=== PATIENT | male | born 1970 | race Caucasian/White ===

== ENCOUNTER 2021-01-23 22:23 | Inpatient (IN) | payer OTHER ==
[2021-01-23 22:32] VITALS: BMI 16.5
[2021-01-24 00:07] LABS: EOS % 2.9 % (0-4.5); HEMATOCRIT 21.2 % (35.4-49); MCH 28.4 pg (25.7-33.7); MCHC 33.1 g/dl (32.0-35.9); MEAN CELL VOLUME 85.7 fl (80-96); MEAN PLT VOLUME 7.7 fl (7.5-11.1); MONO % 14.7 % (3.8-10.2); NEUT % 60.4 % (42.8-82.8); PLATELET COUNT 209 K/MM3 (134-434); RBC 2.47 M/mm3 (4.00-5.60); RDW 15.4 % (11.9-15.9); RETICULOCYTES 1.74 % (0.5-1.5); WHITE BLOOD COUNT 13.8 K/mm3 (4.0-10.0)
[2021-01-24 00:17] LABS: INR 0.97 (0.83-1.09); PROTHROMBIN TIME (PATIENT) 11.8 SEC (9.7-13.0)
[2021-01-24 00:19] LABS: ACTIVATED PTT 27.6 SECONDS (25.2-36.5)
[2021-01-24 00:28] LABS: CHLORIDE 107 mmol/L (98-107); SODIUM 142 mmol/L (136-145)
[2021-01-24 00:31] LABS: CALCIUM 9.6 mg/dL (8.5-10.1); CO2 26 mmol/L (21-32); GLUCOSE,RANDOM 108 mg/dL (74-106); MAGNESIUM 2.3 mg/dL (1.8-2.4)
[2021-01-24 00:34] LABS: CREATININE 3.4 mg/dL (0.55-1.3); SGOT/AST 44 U/L (15-37); SGPT/ALT 40 U/L (13-61)
[2021-01-24 00:35] LABS: LDH 207 U/L (87-246)
[2021-01-24 00:36] LABS: TOT PROT 6.1 g/dl (6.4-8.2)
[2021-01-24 00:37] LABS: ALK PHOS 344 U/L (45-117)
[2021-01-24 00:45] LABS: ANION GAP 9 MMOL/L (8-16)
[2021-01-24 00:47] LABS: IRON SERUM 20 ug/dL (50-175); TOTAL IRON BINDING CAPACITY 154 ug/dL (250-450)
[2021-01-24] MEDS ORDERED: POTASSIUM PHOSPHATE 30 MM in SODIUM CHLORIDE 500 ML IVPB ONE (00:54)
[2021-01-24 01:10] LABS: ANISOCYTOSIS 1+; MACROCYTOSIS 0; PLATELET ESTIMATE NORMAL
[2021-01-24] MEDS: VANCOMYCIN 250 MG/5 ML ORAL SOLUTION GT SCH ×4 (06:17→23:30)
[2021-01-24] MEDS ORDERED: PANTOPRAZOLE 20 MG TABLET PO SCH (07:00)
[2021-01-24] MEDS ORDERED: PANTOPRAZOLE 20 MG TABLET PO ONE (07:05)
[2021-01-24 07:06] LABS: BASO % 0.7 % (0-2.0); EOS % 2.9 % (0-4.5); HEMATOCRIT 26.4 % (35.4-49); HEMOGLOBIN 8.9 GM/dL (11.7-16.9); LYMPH % 21.9 % (8-40); MCHC 33.8 g/dl (32.0-35.9); MEAN CELL VOLUME 85.9 fl (80-96); MEAN PLT VOLUME 7.9 fl (7.5-11.1); MONO % 10.9 % (3.8-10.2); NEUT % 63.6 % (42.8-82.8); PLATELET COUNT 222 K/MM3 (134-434); RBC 3.07 M/mm3 (4.00-5.60); RDW 15.1 % (11.9-15.9); WHITE BLOOD COUNT 14.9 K/mm3 (4.0-10.0)
[2021-01-24 07:25] LABS: CHLORIDE 107 mmol/L (98-107); SODIUM 143 mmol/L (136-145)
[2021-01-24 07:28] LABS: CALCIUM 9.4 mg/dL (8.5-10.1)
[2021-01-24 07:29] LABS: ALBUMIN 2.1 g/dl (3.4-5.0); CO2 27 mmol/L (21-32); MAGNESIUM 2.2 mg/dL (1.8-2.4)
[2021-01-24 07:30] LABS: BLOOD UREA NITROGEN 42.3 mg/dL (7-18); GLUCOSE,RANDOM 101 mg/dL (74-106)
[2021-01-24 07:32] LABS: CREATININE 3.4 mg/dL (0.55-1.3); SGOT/AST 34 U/L (15-37); SGPT/ALT 39 U/L (13-61)
[2021-01-24 07:33] LABS: PHOSPHOROUS 2.8 mg/dL (2.5-4.9)
[2021-01-24 07:34] LABS: BILIRUBIN,TOTAL 1.2 mg/dL (0.2-1); TOT PROT 6.2 g/dl (6.4-8.2)
[2021-01-24 07:35] LABS: ALK PHOS 354 U/L (45-117)
[2021-01-24 07:45] LABS: ANION GAP 9 MMOL/L (8-16)
[2021-01-24] MEDS ORDERED: POTASSIUM CHLORIDE ORAL LIQUID 20 MEQ/15 ML PO ONE (08:06)
[2021-01-24] MEDS ORDERED: POTASSIUM CHLORIDE ORAL LIQUID 20 MEQ/15 ML ONE (08:09)
[2021-01-24 08:47] LABS: ANISOCYTOSIS 1+; MACROCYTOSIS 0; PLATELET ESTIMATE NORMAL
[2021-01-24] MEDS ORDERED: FOLIC ACID 1 MG TABLET (FP) ONE (09:20)
[2021-01-24] MEDS: MULTIVIT-MINERALS ORAL LIQUID PO SCH (09:29)
[2021-01-24] MEDS: CALCIUM ACETATE 667 MG CAPSULE (FP) PO SCH (09:30)
[2021-01-24] MEDS: [UNRECOGNIZED DRUG - OTHER] PO SCH (09:30)
[2021-01-24] MEDS: FOLIC ACID 1 MG TABLET (FP) GT SCH (09:30)
[2021-01-24] MEDS ORDERED: [UNRECOGNIZED DRUG - OTHER] GT SCH (10:00)
[2021-01-24] MEDS ORDERED: PATIENT'S OWN MEDICATION (NON-FORMULARY) (Omeprazole 20 MG Capsule.Dr) GT SCH (10:00)
[2021-01-24] MEDS ORDERED: FERROUS SULFATE GT SCH (10:00)
[2021-01-24] MEDS ORDERED: FERROUS SO4 300 MG/5 ML ORAL SOLN UNIT DOSE CUPS PO SCH (10:00)
[2021-01-24] MEDS ORDERED: PATIENT'S OWN MEDICATION (NON-FORMULARY) (Multivitamin [Multivitamin] 1 EACH Tablet) GT SCH (10:00)
[2021-01-24] MEDS ORDERED: CALCIUM ACETATE 667 MG GT SCH (10:00)
[2021-01-24] MEDS: ASCORBIC ACID 500 MG/5 ML UNIT DOSE CUP GT SCH (10:32)
[2021-01-24] MEDS ORDERED: SODIUM CHLORIDE 250 ML IV PRN (14:04)
[2021-01-24] MEDS ORDERED: EPOETIN ALFA 10,000 UNIT/1 ML VIAL SQ ONE (14:04)
[2021-01-24] MEDS: ACETAMINOPHEN 650 MG/20.3 ML ORAL SOLUTION (CUPS) PO PRN (21:09)
[2021-01-25] MEDS: VANCOMYCIN 250 MG/5 ML ORAL SOLUTION GT SCH ×4 (05:03→23:30)
[2021-01-25] MEDS ORDERED: VANCOMYCIN 1 GRAM (PRE-DOCKED) 1,000 MG/250 ML BAG IVPB ONE (06:05)
[2021-01-25] MEDS ORDERED: PT OWN MED DRAWER 7, Y5N ONE (09:47)
[2021-01-25] MEDS: CALCIUM ACETATE 667 MG CAPSULE (FP) PO SCH (09:56)
[2021-01-25] MEDS: [UNRECOGNIZED DRUG - OTHER] PO SCH (09:56)
[2021-01-25] MEDS: MULTIVIT-MINERALS ORAL LIQUID PO SCH (09:56)
[2021-01-25] MEDS: FOLIC ACID 1 MG TABLET (FP) GT SCH (09:56)
[2021-01-25] MEDS: ASCORBIC ACID 500 MG/5 ML UNIT DOSE CUP GT SCH (09:56)
[2021-01-25] MEDS: PANTOPRAZOLE SOD 40 MG SUSPENSION PACKET NR SCH (09:56)
[2021-01-25 13:32] LABS: CHLORIDE 103 mmol/L (98-107); SODIUM 139 mmol/L (136-145)
[2021-01-25 13:35] LABS: CALCIUM 8.7 mg/dL (8.5-10.1)
[2021-01-25 13:36] LABS: CO2 28 mmol/L (21-32); GLUCOSE,RANDOM 115 mg/dL (74-106)
[2021-01-25 13:39] LABS: CREATININE 2.2 mg/dL (0.55-1.3)
[2021-01-25 13:47] LABS: ANION GAP 8 MMOL/L (8-16)
[2021-01-25] MEDS ORDERED: POTASSIUM CHLORIDE ORAL LIQUID 20 MEQ/15 ML GT ONE (13:54)
[2021-01-25] MEDS: ACETAMINOPHEN 650 MG/20.3 ML ORAL SOLUTION (CUPS) PO PRN (15:27)
[2021-01-26] MEDS: ACETAMINOPHEN 650 MG/20.3 ML ORAL SOLUTION (CUPS) PO PRN ×3 (02:05→23:15)
[2021-01-26] MEDS: VANCOMYCIN 250 MG/5 ML ORAL SOLUTION GT SCH ×4 (05:29→23:15)
[2021-01-26 08:10] LABS: CALCIUM 8.8 mg/dL (8.5-10.1)
[2021-01-26 08:11] LABS: BLOOD UREA NITROGEN 36.4 mg/dL (7-18)
[2021-01-26 08:14] LABS: CREATININE 2.8 mg/dL (0.55-1.3)
[2021-01-26 08:15] LABS: BASO % 0.3 % (0-2.0); EOS % 1.5 % (0-4.5); HEMATOCRIT 25.2 % (35.4-49); HEMOGLOBIN 8.7 GM/dL (11.7-16.9); LYMPH % 18.5 % (8-40); MCH 29.6 pg (25.7-33.7); MCHC 34.4 g/dl (32.0-35.9); NEUT % 72.7 % (42.8-82.8); PLATELET COUNT 263 K/MM3 (134-434); RBC 2.93 M/mm3 (4.00-5.60); RDW 15.9 % (11.9-15.9); WHITE BLOOD COUNT 19.9 K/mm3 (4.0-10.0)
[2021-01-26] MEDS ORDERED: PT OWN MED DRAWER 7, Y5N ONE ×2 (09:21→13:05)
[2021-01-26] MEDS: FOLIC ACID 1 MG TABLET (FP) GT SCH (09:25)
[2021-01-26] MEDS: MULTIVIT-MINERALS ORAL LIQUID PO SCH (09:25)
[2021-01-26] MEDS: PANTOPRAZOLE SOD 40 MG SUSPENSION PACKET NR SCH (09:26)
[2021-01-26] MEDS: ASCORBIC ACID 500 MG/5 ML UNIT DOSE CUP GT SCH (09:26)
[2021-01-26] MEDS: CALCIUM ACETATE 667 MG CAPSULE (FP) PO SCH (09:26)
[2021-01-26] MEDS: FERROUS SULFATE 220 MG/5 ML ELIXIR GT SCH (09:26)
[2021-01-26] MEDS ORDERED: VANCOMYCIN 1 GRAM (PRE-DOCKED) 1,000 MG/250 ML BAG IVPB ONE (11:45)
[2021-01-26] MEDS: COLLAGENASE CLOSTRIDIUM HIST. 30 GRAMS TUBE TP SCH (13:27)
[2021-01-26] MEDS ORDERED: SODIUM CHLORIDE 250 ML IV PRN (18:45)
[2021-01-27] MEDS: ACETAMINOPHEN 650 MG/20.3 ML ORAL SOLUTION (CUPS) PO PRN ×2 (06:25→14:52)
[2021-01-27] MEDS: VANCOMYCIN 250 MG/5 ML ORAL SOLUTION GT SCH ×4 (06:26→23:25)
[2021-01-27] MEDS ORDERED: EPOETIN ALFA-EPBX 10,000 UNIT/ML VIAL IVPUSH ONE (10:15)
[2021-01-27] MEDS ORDERED: LORazepam 2 MG/ML SDV VIAL IVPUSH ONE (14:32)
[2021-01-27] MEDS ORDERED: PT OWN MED DRAWER 7, Y5N ONE (15:38)
[2021-01-27] MEDS: CALCIUM ACETATE 667 MG CAPSULE (FP) GT SCH ×2 (15:42→17:13)
[2021-01-27] MEDS: MULTIVIT-MINERALS ORAL LIQUID PO SCH (15:42)
[2021-01-27] MEDS: FOLIC ACID 1 MG TABLET (FP) GT SCH (15:43)
[2021-01-27] MEDS: FERROUS SULFATE 220 MG/5 ML ELIXIR GT SCH (15:43)
[2021-01-27] MEDS: COLLAGENASE CLOSTRIDIUM HIST. 30 GRAMS TUBE TP SCH (15:44)
[2021-01-27] MEDS: ASCORBIC ACID 500 MG/5 ML UNIT DOSE CUP GT SCH (15:44)
[2021-01-27] MEDS: FAMOTIDINE 40 MG/5 ML ORAL SUSPENSION NGT SCH (15:44)
[2021-01-27] MEDS: CALCIUM ACETATE 667 MG CAPSULE (FP) PO SCH (16:06)
[2021-01-27] MEDS: PANTOPRAZOLE SOD 40 MG SUSPENSION PACKET NR SCH (16:08)
[2021-01-27] MEDS ORDERED: ACETAMINOPHEN 1000 MG/100 ML VIAL (NON FORMULARY) IVPB ONE (17:06)
[2021-01-27] MEDS ORDERED: CEFAZOLIN 2 GM/D5W 2 GM/50 ML ML IVPB ONE (21:00)
[2021-01-27] MEDS ORDERED: CEFAZOLIN 2 GM in DEXTROSE 5%-WATER 100 ML IVPB ONE (21:00)
[2021-01-28] MEDS: VANCOMYCIN 250 MG/5 ML ORAL SOLUTION GT SCH ×4 (06:01→23:20)
[2021-01-28 07:09] LABS: HEMATOCRIT 25.2 % (35.4-49); HEMOGLOBIN 8.2 GM/dL (11.7-16.9); MCH 28.3 pg (25.7-33.7); MCHC 32.8 g/dl (32.0-35.9); MEAN CELL VOLUME 86.4 fl (80-96); MEAN PLT VOLUME 8.2 fl (7.5-11.1); PLATELET COUNT 236 K/MM3 (134-434); RBC 2.91 M/mm3 (4.00-5.60); RDW 15.9 % (11.9-15.9); WHITE BLOOD COUNT 16.1 K/mm3 (4.0-10.0)
[2021-01-28 07:28] LABS: CHLORIDE 104 mmol/L (98-107); SODIUM 144 mmol/L (136-145)
[2021-01-28 07:34] LABS: ALBUMIN 1.8 g/dl (3.4-5.0); BLOOD UREA NITROGEN 38.8 mg/dL (7-18); CALCIUM 8.6 mg/dL (8.5-10.1); CO2 29 mmol/L (21-32); GLUCOSE,RANDOM 114 mg/dL (74-106)
[2021-01-28 07:37] LABS: SGOT/AST 23 U/L (15-37); SGPT/ALT 23 U/L (13-61)
[2021-01-28 07:39] LABS: BILIRUBIN,TOTAL 0.9 mg/dL (0.2-1); TOT PROT 6.5 g/dl (6.4-8.2)
[2021-01-28 07:40] LABS: ALK PHOS 339 U/L (45-117); ANION GAP 10 MMOL/L (8-16)
[2021-01-28] MEDS ORDERED: PT OWN MED DRAWER 7, Y5N ONE (09:42)
[2021-01-28] MEDS: COLLAGENASE CLOSTRIDIUM HIST. 30 GRAMS TUBE TP SCH (10:23)
[2021-01-28] MEDS: FOLIC ACID 1 MG TABLET (FP) GT SCH (10:23)
[2021-01-28] MEDS: CALCIUM ACETATE 667 MG CAPSULE (FP) GT SCH ×3 (10:23→18:17)
[2021-01-28] MEDS: ASCORBIC ACID 500 MG/5 ML UNIT DOSE CUP GT SCH (10:23)
[2021-01-28] MEDS: FERROUS SULFATE 220 MG/5 ML ELIXIR GT SCH (10:23)
[2021-01-28] MEDS: MULTIVIT-MINERALS ORAL LIQUID PO SCH (10:23)
[2021-01-28] MEDS ORDERED: KCL 10 MEQ IVPB 10 MEQ/100 ML INFUS.BAG IVPB SCH (10:30)
[2021-01-28] MEDS ORDERED: POTASSIUM CHLORIDE ORAL LIQUID 20 MEQ/15 ML PEG ONE (11:30)
[2021-01-28] MEDS ORDERED: COLLAGENASE CLOSTRIDIUM HIST. 30 GRAMS TUBE TP SCH (16:45)
[2021-01-29] MEDS: VANCOMYCIN 250 MG/5 ML ORAL SOLUTION GT SCH ×4 (05:55→23:26)
[2021-01-29 06:22] LABS: HEMATOCRIT 24.5 % (35.4-49); HEMOGLOBIN 8.2 GM/dL (11.7-16.9); MCH 28.7 pg (25.7-33.7); MCHC 33.6 g/dl (32.0-35.9); MEAN CELL VOLUME 85.6 fl (80-96); MEAN PLT VOLUME 7.9 fl (7.5-11.1); PLATELET COUNT 289 K/MM3 (134-434); RBC 2.87 M/mm3 (4.00-5.60); RDW 15.9 % (11.9-15.9); WHITE BLOOD COUNT 15.7 K/mm3 (4.0-10.0)
[2021-01-29 06:41] LABS: CALCIUM 8.9 mg/dL (8.5-10.1)
[2021-01-29 06:42] LABS: BLOOD UREA NITROGEN 54.4 mg/dL (7-18)
[2021-01-29 06:45] LABS: CREATININE 2.2 mg/dL (0.55-1.3)
[2021-01-29] MEDS ORDERED: EPOETIN ALFA-EPBX 10,000 UNIT/ML VIAL IVPUSH ONE (14:00)
[2021-01-29] MEDS ORDERED: SODIUM CHLORIDE 250 ML IV PRN (14:00)
[2021-01-29] MEDS: CALCIUM ACETATE 667 MG CAPSULE (FP) GT SCH ×2 (14:01→17:28)
[2021-01-29] MEDS ORDERED: CEFAZOLIN 2 GM/D5W 2 GM/50 ML ML IVPB ONE (15:15)
[2021-01-29] MEDS ORDERED: PT OWN MED DRAWER 7, Y5N ONE (17:10)
[2021-01-29] MEDS: FAMOTIDINE 40 MG/5 ML ORAL SUSPENSION NGT SCH (17:26)
[2021-01-29] MEDS: MULTIVIT-MINERALS ORAL LIQUID PO SCH (17:27)
[2021-01-29] MEDS: FERROUS SULFATE 220 MG/5 ML ELIXIR GT SCH (17:27)
[2021-01-29] MEDS: ASCORBIC ACID 500 MG/5 ML UNIT DOSE CUP GT SCH (17:27)
[2021-01-29] MEDS: FOLIC ACID 1 MG TABLET (FP) GT SCH (17:30)
[2021-01-29] MEDS: COLLAGENASE CLOSTRIDIUM HIST. 30 GRAMS TUBE TP SCH (17:30)
[2021-01-30] MEDS: VANCOMYCIN 250 MG/5 ML ORAL SOLUTION GT SCH ×3 (05:53→17:27)
[2021-01-30] MEDS ORDERED: PT OWN MED DRAWER 7, Y5N ONE ×2 (09:57→12:09)
[2021-01-30] MEDS: FOLIC ACID 1 MG TABLET (FP) GT SCH (10:06)
[2021-01-30] MEDS: MULTIVIT-MINERALS ORAL LIQUID PO SCH (10:07)
[2021-01-30] MEDS: FERROUS SULFATE 220 MG/5 ML ELIXIR GT SCH (10:07)
[2021-01-30] MEDS: COLLAGENASE CLOSTRIDIUM HIST. 30 GRAMS TUBE TP SCH (10:07)
[2021-01-30] MEDS: ASCORBIC ACID 500 MG/5 ML UNIT DOSE CUP GT SCH (10:07)
[2021-01-30] MEDS: CALCIUM ACETATE 667 MG CAPSULE (FP) GT SCH ×3 (10:11→17:26)
[2021-01-30] MEDS ORDERED: SODIUM CHLORIDE 250 ML IV PRN (12:30)
[2021-01-31] MEDS: VANCOMYCIN 250 MG/5 ML ORAL SOLUTION GT SCH (00:06)
[2021-01-31] MEDS: CALCIUM ACETATE 667 MG CAPSULE (FP) GT SCH ×3 (08:06→17:23)
[2021-01-31] MEDS ORDERED: EPOETIN ALFA 10,000 UNIT/1 ML VIAL SQ ONE (08:30)
[2021-01-31] MEDS ORDERED: EPOETIN ALFA-EPBX 10,000 UNIT/ML VIAL SQ ONE (08:45)
[2021-01-31 09:01] LABS: BASO % 0.5 % (0-2.0); HEMATOCRIT 22.4 % (35.4-49); HEMOGLOBIN 7.5 GM/dL (11.7-16.9); LYMPH % 17.6 % (8-40); MCH 28.8 pg (25.7-33.7); MCHC 33.4 g/dl (32.0-35.9); MEAN CELL VOLUME 86.2 fl (80-96); MEAN PLT VOLUME 7.9 fl (7.5-11.1); MONO % 8.5 % (3.8-10.2); NEUT % 69.4 % (42.8-82.8); PLATELET COUNT 375 K/MM3 (134-434); RDW 15.5 % (11.9-15.9); WHITE BLOOD COUNT 14.5 K/mm3 (4.0-10.0)
[2021-01-31] MEDS: COLLAGENASE CLOSTRIDIUM HIST. 30 GRAMS TUBE TP SCH (10:58)
[2021-01-31] MEDS: FERROUS SULFATE 220 MG/5 ML ELIXIR GT SCH (10:58)
[2021-01-31] MEDS: FAMOTIDINE 40 MG/5 ML ORAL SUSPENSION NGT SCH (10:58)
[2021-01-31] MEDS: MULTIVIT-MINERALS ORAL LIQUID PO SCH (10:58)
[2021-01-31] MEDS: ASCORBIC ACID 500 MG/5 ML UNIT DOSE CUP GT SCH (10:59)
[2021-01-31] MEDS: FOLIC ACID 1 MG TABLET (FP) GT SCH (10:59)
[2021-01-31] MEDS ORDERED: CEFAZOLIN 3 GM in DEXTROSE 5%-WATER - 100 ML IVPB ONE (11:00)
[2021-01-31] MEDS ORDERED: PT OWN MED DRAWER 7, Y5N ONE (12:34)
[2021-01-31] MEDS ORDERED: PIPERACILLIN/TAZOB 3.375 GM 3.375 GM in DEXTROSE 5%-WATER - 50 ML IVPB ONE (21:23)
[2021-01-31] MEDS ORDERED: DEXTROSE 5%-WATER - 50 ML IVPB ONE (21:56)
[2021-01-31] MEDS ORDERED: PIPERACILLIN/TAZOBACTAM 3.375 GM VIAL IVPB ONE (21:56)
[2021-01-31] MEDS: ACETAMINOPHEN 650 MG/20.3 ML ORAL SOLUTION (CUPS) PO PRN (22:01)
[2021-01-31] MEDS ORDERED: VANCOMYCIN 1 GM in D5W (PRE-DOCKED) 1,000 MG/250 ML IVPB ONE (22:30)
[2021-02-01] MEDS ORDERED: DEXTROSE 5%-WATER - 50 ML IVPB ONE ×3 (01:55→17:05)
[2021-02-01] MEDS ORDERED: PIPERACILLIN/TAZOBACTAM 2.25 GM VIAL IVPB ONE ×3 (01:55→17:05)
[2021-02-01] MEDS: PIPERACILLIN/TAZOB 2.25 GM 2.25 GM in DEXTROSE 5%-WATER - 50 ML IVPB SCH ×3 (02:40→17:32)
[2021-02-01] MEDS: CALCIUM ACETATE 667 MG CAPSULE (FP) GT SCH ×3 (09:38→17:16)
[2021-02-01] MEDS: ASCORBIC ACID 500 MG/5 ML UNIT DOSE CUP GT SCH (10:29)
[2021-02-01] MEDS: FERROUS SULFATE 220 MG/5 ML ELIXIR GT SCH (10:29)
[2021-02-01] MEDS: MULTIVIT-MINERALS ORAL LIQUID PO SCH (10:29)
[2021-02-01] MEDS: COLLAGENASE CLOSTRIDIUM HIST. 30 GRAMS TUBE TP SCH (10:29)
[2021-02-01] MEDS: FOLIC ACID 1 MG TABLET (FP) GT SCH (10:30)
[2021-02-01] MEDS: ACETAMINOPHEN 650 MG/20.3 ML ORAL SOLUTION (CUPS) PO PRN (21:01)
[2021-02-02] MEDS ORDERED: PIPERACILLIN/TAZOBACTAM 2.25 GM VIAL IVPB ONE ×3 (01:56→16:55)
[2021-02-02] MEDS ORDERED: DEXTROSE 5%-WATER - 50 ML IVPB ONE ×3 (01:56→16:55)
[2021-02-02] MEDS: PIPERACILLIN/TAZOB 2.25 GM 2.25 GM in DEXTROSE 5%-WATER - 50 ML IVPB SCH ×3 (02:01→17:42)
[2021-02-02 07:56] LABS: BASO % 0.6 % (0-2.0); EOS % 5.1 % (0-4.5); HEMATOCRIT 22.5 % (35.4-49); HEMOGLOBIN 7.5 GM/dL (11.7-16.9); LYMPH % 12.7 % (8-40); MCH 28.7 pg (25.7-33.7); MCHC 33.2 g/dl (32.0-35.9); MEAN CELL VOLUME 86.6 fl (80-96); MEAN PLT VOLUME 7.6 fl (7.5-11.1); MONO % 8.8 % (3.8-10.2); NEUT % 72.8 % (42.8-82.8); PLATELET COUNT 396 K/MM3 (134-434); RDW 16.2 % (11.9-15.9)
[2021-02-02 08:06] LABS: CHLORIDE 102 mmol/L (98-107); SODIUM 140 mmol/L (136-145)
[2021-02-02 08:14] LABS: ALBUMIN 1.9 g/dl (3.4-5.0); ANION GAP 10 MMOL/L (8-16); BLOOD UREA NITROGEN 44.6 mg/dL (7-18); CALCIUM 9.2 mg/dL (8.5-10.1); CO2 29 mmol/L (21-32); GLUCOSE,RANDOM 117 mg/dL (74-106)
[2021-02-02 08:16] LABS: SGPT/ALT < 6 U/L (13-61)
[2021-02-02 08:17] LABS: SGOT/AST 20 U/L (15-37)
[2021-02-02 08:18] LABS: BILIRUBIN,TOTAL 0.8 mg/dL (0.2-1); TOT PROT 6.6 g/dl (6.4-8.2)
[2021-02-02 08:20] LABS: ALK PHOS 279 U/L (45-117)
[2021-02-02] MEDS ORDERED: PT OWN MED DRAWER 7, Y5N ONE (08:58)
[2021-02-02] MEDS: CALCIUM ACETATE 667 MG CAPSULE (FP) GT SCH ×3 (09:56→17:42)
[2021-02-02] MEDS: FERROUS SULFATE 220 MG/5 ML ELIXIR GT SCH (10:02)
[2021-02-02] MEDS: ASCORBIC ACID 500 MG/5 ML UNIT DOSE CUP GT SCH (10:02)
[2021-02-02] MEDS: MULTIVIT-MINERALS ORAL LIQUID PO SCH (10:02)
[2021-02-02] MEDS: COLLAGENASE CLOSTRIDIUM HIST. 30 GRAMS TUBE TP SCH (10:02)
[2021-02-02] MEDS: FAMOTIDINE 40 MG/5 ML ORAL SUSPENSION NGT SCH (10:02)
[2021-02-02] MEDS: FOLIC ACID 1 MG TABLET (FP) GT SCH (10:02)
[2021-02-02] MEDS ORDERED: VANCOMYCIN 1 GRAM (PRE-DOCKED) 1,000 MG/250 ML BAG IVPB ONE (12:00)
[2021-02-02 12:07] LABS: HEP B CORE AB, TOT Negative (Negative)
[2021-02-03] MEDS ORDERED: PIPERACILLIN/TAZOBACTAM 2.25 GM VIAL IVPB ONE ×3 (01:06→17:07)
[2021-02-03] MEDS ORDERED: DEXTROSE 5%-WATER - 50 ML IVPB ONE ×3 (01:06→17:07)
[2021-02-03] MEDS: PIPERACILLIN/TAZOB 2.25 GM 2.25 GM in DEXTROSE 5%-WATER - 50 ML IVPB SCH ×3 (02:48→17:15)
[2021-02-03] MEDS ORDERED: PT OWN MED DRAWER 7, Y5N ONE (08:54)
[2021-02-03] MEDS: COLLAGENASE CLOSTRIDIUM HIST. 30 GRAMS TUBE TP SCH (09:12)
[2021-02-03] MEDS: CALCIUM ACETATE 667 MG CAPSULE (FP) GT SCH ×3 (09:12→17:16)
[2021-02-03] MEDS: FERROUS SULFATE 220 MG/5 ML ELIXIR GT SCH (09:12)
[2021-02-03] MEDS: MULTIVIT-MINERALS ORAL LIQUID PO SCH (09:12)
[2021-02-03] MEDS: ASCORBIC ACID 500 MG/5 ML UNIT DOSE CUP GT SCH (09:12)
[2021-02-03] MEDS: FOLIC ACID 1 MG TABLET (FP) GT SCH (09:13)
[2021-02-03 12:05] LABS: BLOOD UREA NITROGEN 58.3 mg/dL (7-18); CALCIUM 9.7 mg/dL (8.5-10.1)
[2021-02-03] MEDS: ALPRAZolam 0.25 MG TABLET GT PRN ×2 (12:31→23:19)
[2021-02-03] MEDS ORDERED: MEROPENEM 1 GM in DEXTROSE 5%-WATER 100 ML IVPB ONE (22:41)
[2021-02-03] MEDS ORDERED: MEROPENEM 1 GM VIAL (RESTRICTED TO ID) IVPB ONE (23:14)
[2021-02-03] MEDS ORDERED: DEXTROSE 5%-WATER 100 ML IVPB ONE (23:14)
[2021-02-04] MEDS ORDERED: PT OWN MED DRAWER 7, Y5N ONE (09:13)
[2021-02-04] MEDS: CALCIUM ACETATE 667 MG CAPSULE (FP) GT SCH ×3 (09:37→17:14)
[2021-02-04] MEDS: FOLIC ACID 1 MG TABLET (FP) GT SCH (09:37)
[2021-02-04] MEDS: MULTIVIT-MINERALS ORAL LIQUID PO SCH (09:38)
[2021-02-04] MEDS: FERROUS SULFATE 220 MG/5 ML ELIXIR GT SCH (09:38)
[2021-02-04] MEDS: FAMOTIDINE 40 MG/5 ML ORAL SUSPENSION NGT SCH (09:39)
[2021-02-04] MEDS: COLLAGENASE CLOSTRIDIUM HIST. 30 GRAMS TUBE TP SCH (09:39)
[2021-02-04] MEDS: ALPRAZolam 0.25 MG TABLET GT PRN ×2 (09:39→21:45)
[2021-02-04] MEDS: ASCORBIC ACID 500 MG/5 ML UNIT DOSE CUP GT SCH (09:39)
[2021-02-04] MEDS ORDERED: MEROPENEM 1 GM in DEXTROSE 5%-WATER 100 ML IVPB SCH (13:30)
[2021-02-04] MEDS ORDERED: CEFAZOLIN 2 GM/D5W 2 GM/50 ML ML IVPB ONE (13:30)
[2021-02-04] MEDS ORDERED: MEROPENEM 1 GM VIAL (RESTRICTED TO ID) IVPB ONE (13:57)
[2021-02-04] MEDS ORDERED: DEXTROSE 5%-WATER 100 ML IVPB ONE (13:57)
[2021-02-05] MEDS ORDERED: HEPARIN NA (PORCINE) 5,000 UNITS/ML 1ML VIAL ONE ×2 (09:11→12:51)
[2021-02-05] MEDS ORDERED: LIDOCAINE HCL 1%, 10 MG/ML (20ML VIAL) ONE ×2 (09:11→12:51)
[2021-02-05 09:28] LABS: HEMATOCRIT 24.8 % (35.4-49); MCH 28.3 pg (25.7-33.7); MCHC 32.3 g/dl (32.0-35.9); MEAN CELL VOLUME 87.5 fl (80-96); MEAN PLT VOLUME 7.8 fl (7.5-11.1); PLATELET COUNT 466 K/MM3 (134-434); RBC 2.83 M/mm3 (4.00-5.60); RDW 15.6 % (11.9-15.9); WHITE BLOOD COUNT 9.4 K/mm3 (4.0-10.0)
[2021-02-05 09:54] LABS: CALCIUM 9.5 mg/dL (8.5-10.1)
[2021-02-05 09:55] LABS: BLOOD UREA NITROGEN 75.1 mg/dL (7-18)
[2021-02-05 09:58] LABS: CREATININE 3.4 mg/dL (0.55-1.3)
[2021-02-05] MEDS ORDERED: LIDOCAINE HCL 1%, 10 MG/ML (20ML VIAL) INF ONE ×2 (10:00→10:49)
[2021-02-05] MEDS ORDERED: SODIUM CHLORIDE 250 ML IV PRN ×2 (10:04→11:08)
[2021-02-05] MEDS ORDERED: ceFAZolin SODIUM 1 GM VIAL IVPB ONE (10:10)
[2021-02-05] MEDS ORDERED: MIDAZOLAM HCL 2 MG/2 ML SINGLE DOSE VIAL ONE ×2 (10:15→10:36)
[2021-02-05] MEDS ORDERED: PROPOFOL 20 ML ONE (10:37)
[2021-02-05] MEDS ORDERED: EPOETIN ALFA-EPBX 4,000 UNIT/ML VIAL SQ ONE ×2 (11:00→11:08)
[2021-02-05] MEDS ORDERED: ONDANSETRON 4 MG/2 ML VIAL IVPUSH PRN ×2 (11:04→11:08)
[2021-02-05] MEDS ORDERED: ACETAMINOPHEN 650 MG/20.3 ML ORAL SOLUTION (CUPS) PO PRN (11:08)
[2021-02-05] MEDS ORDERED: MEROPENEM 1 GM in DEXTROSE 5%-WATER 100 ML IVPB SCH (13:00)
[2021-02-05] MEDS ORDERED: MEROPENEM 1 GM VIAL (RESTRICTED TO ID) IVPB ONE (13:01)
[2021-02-05] MEDS ORDERED: DEXTROSE 5%-WATER 100 ML IVPB ONE (13:01)
[2021-02-05] MEDS ORDERED: PT OWN MED DRAWER 7, Y5N ONE (13:02)
[2021-02-05] MEDS: CALCIUM ACETATE 667 MG CAPSULE (FP) GT SCH ×3 (13:05→17:18)
[2021-02-05] MEDS: MULTIVIT-MINERALS ORAL LIQUID PO SCH (13:13)
[2021-02-05] MEDS: FERROUS SULFATE 220 MG/5 ML ELIXIR GT SCH (13:13)
[2021-02-05] MEDS: COLLAGENASE CLOSTRIDIUM HIST. 30 GRAMS TUBE TP SCH (13:13)
[2021-02-05] MEDS: ASCORBIC ACID 500 MG/5 ML UNIT DOSE CUP GT SCH (13:15)
[2021-02-05] MEDS: FOLIC ACID 1 MG TABLET (FP) GT SCH (13:15)
[2021-02-05] MEDS: ALPRAZolam 0.25 MG TABLET GT PRN (13:21)
[2021-02-05] MEDS ORDERED: CEFAZOLIN 2 GM/D5W 2 GM/50 ML ML IVPB ONE (16:00)
[2021-02-06] MEDS: ALPRAZolam 0.25 MG TABLET GT PRN ×3 (01:57→20:49)
[2021-02-06] MEDS ORDERED: MEROPENEM 500 MG VIAL (RESTRICTED TO ID) IVPB ONE (09:26)
[2021-02-06] MEDS ORDERED: DEXTROSE 5%-WATER 100 ML IVPB ONE (09:27)
[2021-02-06] MEDS: CALCIUM ACETATE 667 MG CAPSULE (FP) GT SCH ×3 (09:40→16:52)
[2021-02-06] MEDS ORDERED: COLLAGENASE CLOSTRIDIUM HIST. 30 GRAMS TUBE TP SCH (10:00)
[2021-02-06] MEDS ORDERED: ASCORBIC ACID 500 MG/5 ML UNIT DOSE CUP GT SCH (10:00)
[2021-02-06] MEDS ORDERED: FOLIC ACID 1 MG TABLET (FP) GT SCH (10:00)
[2021-02-06] MEDS ORDERED: MULTIVIT-MINERALS ORAL LIQUID PO SCH (10:00)
[2021-02-06] MEDS ORDERED: FERROUS SULFATE 220 MG/5 ML ELIXIR GT SCH (10:00)
[2021-02-06] MEDS ORDERED: FAMOTIDINE 40 MG/5 ML ORAL SUSPENSION NGT SCH (10:00)
[2021-02-06] MEDS ORDERED: MEROPENEM 500 MG in DEXTROSE 5%-WATER 100 ML IVPB SCH (10:00)
[2021-02-06] MEDS: AMINO ACIDS/PROTEIN HYDROLYS 30 ML LIQUID.PKT GT SCH (16:52)
[2021-02-07] MEDS ORDERED: SODIUM CHLORIDE 250 ML IV PRN (07:22)
[2021-02-07] MEDS ORDERED: EPOETIN ALFA-EPBX 4,000 UNIT/ML VIAL SQ ONE (08:00)
[2021-02-07] MEDS: AMINO ACIDS/PROTEIN HYDROLYS 30 ML LIQUID.PKT GT SCH ×3 (08:12→17:12)
[2021-02-07] MEDS: CALCIUM ACETATE 667 MG CAPSULE (FP) GT SCH ×3 (08:12→17:12)
[2021-02-07] MEDS ORDERED: ACETAMINOPHEN 650 MG/20.3 ML ORAL SOLUTION (CUPS) PO PRN (08:16)
[2021-02-07 08:37] LABS: CALCIUM 9.6 mg/dL (8.5-10.1)
[2021-02-07] MEDS ORDERED: ONDANSETRON 4 MG/2 ML VIAL IVPUSH PRN (08:39)
[2021-02-07 08:40] LABS: BLOOD UREA NITROGEN 47.7 mg/dL (7-18); CREATININE 3.1 mg/dL (0.55-1.3)
[2021-02-07] MEDS ORDERED: PT OWN MED DRAWER 7, Y5N ONE ×2 (09:48→11:38)
[2021-02-07] MEDS ORDERED: MEROPENEM 500 MG VIAL (RESTRICTED TO ID) IVPB ONE (11:37)
[2021-02-07] MEDS ORDERED: DEXTROSE 5%-WATER 100 ML IVPB ONE (11:37)
[2021-02-07] MEDS: MEROPENEM 500 MG in DEXTROSE 5%-WATER 100 ML IVPB SCH (12:30)
[2021-02-07] MEDS: ASCORBIC ACID 500 MG/5 ML UNIT DOSE CUP GT SCH (12:30)
[2021-02-07] MEDS: FAMOTIDINE 40 MG/5 ML ORAL SUSPENSION NGT SCH ×2 (12:30)
[2021-02-07] MEDS: MULTIVIT-MINERALS ORAL LIQUID PO SCH (12:30)
[2021-02-07] MEDS: FERROUS SULFATE 220 MG/5 ML ELIXIR GT SCH (12:30)
[2021-02-07] MEDS: COLLAGENASE CLOSTRIDIUM HIST. 30 GRAMS TUBE TP SCH (12:30)
[2021-02-07] MEDS: FOLIC ACID 1 MG TABLET (FP) GT SCH (12:30)
[2021-02-07] MEDS ORDERED: ceFAZolin 2 GRAM PREMIX BAG IVPB ONE (14:00)
[2021-02-07] MEDS: ALPRAZolam 0.25 MG TABLET GT PRN (22:44)
[2021-02-08] MEDS ORDERED: DEXTROSE 5%-WATER 100 ML IVPB ONE (08:25)
[2021-02-08] MEDS ORDERED: MEROPENEM 500 MG VIAL (RESTRICTED TO ID) IVPB ONE (08:25)
[2021-02-08 08:38] LABS: BLOOD UREA NITROGEN 39.6 mg/dL (7-18)
[2021-02-08] MEDS: AMINO ACIDS/PROTEIN HYDROLYS 30 ML LIQUID.PKT GT SCH ×2 (08:40→18:33)
[2021-02-08] MEDS: CALCIUM ACETATE 667 MG CAPSULE (FP) GT SCH ×3 (08:40→18:32)
[2021-02-08 08:41] LABS: CREATININE 2.9 mg/dL (0.55-1.3)
[2021-02-08] MEDS: ALPRAZolam 0.25 MG TABLET GT PRN ×2 (08:41→21:45)
[2021-02-08] MEDS: MEROPENEM 500 MG in DEXTROSE 5%-WATER 100 ML IVPB SCH (10:41)
[2021-02-08] MEDS: FOLIC ACID 1 MG TABLET (FP) GT SCH (10:41)
[2021-02-08] MEDS ORDERED: PT OWN MED DRAWER 7, Y5N ONE (10:44)
[2021-02-08] MEDS: ASCORBIC ACID 500 MG/5 ML UNIT DOSE CUP GT SCH (10:45)
[2021-02-08] MEDS: FERROUS SULFATE 220 MG/5 ML ELIXIR GT SCH (10:45)
[2021-02-08] MEDS: COLLAGENASE CLOSTRIDIUM HIST. 30 GRAMS TUBE TP SCH (10:45)
[2021-02-08] MEDS: MULTIVIT-MINERALS ORAL LIQUID PO SCH (10:45)
[2021-02-09] MEDS: ALPRAZolam 0.25 MG TABLET GT PRN ×2 (09:02→21:30)
[2021-02-09] MEDS: CALCIUM ACETATE 667 MG CAPSULE (FP) GT SCH ×3 (09:03→17:31)
[2021-02-09] MEDS: AMINO ACIDS/PROTEIN HYDROLYS 30 ML LIQUID.PKT GT SCH ×2 (09:03→17:31)
[2021-02-09 10:03] LABS: CALCIUM 10.4 mg/dL (8.5-10.1)
[2021-02-09 10:07] LABS: BLOOD UREA NITROGEN 64.7 mg/dL (7-18); CREATININE 3.9 mg/dL (0.55-1.3)
[2021-02-09] MEDS ORDERED: DEXTROSE 5%-WATER 100 ML IVPB ONE (11:02)
[2021-02-09] MEDS ORDERED: MEROPENEM 500 MG VIAL (RESTRICTED TO ID) IVPB ONE (11:02)
[2021-02-09] MEDS ORDERED: PT OWN MED DRAWER 7, Y5N ONE (11:03)
[2021-02-09] MEDS: ASCORBIC ACID 500 MG/5 ML UNIT DOSE CUP GT SCH (11:04)
[2021-02-09] MEDS: FOLIC ACID 1 MG TABLET (FP) GT SCH (11:04)
[2021-02-09] MEDS: MEROPENEM 500 MG in DEXTROSE 5%-WATER 100 ML IVPB SCH (11:04)
[2021-02-09] MEDS: FERROUS SULFATE 220 MG/5 ML ELIXIR GT SCH (11:04)
[2021-02-09] MEDS: FAMOTIDINE 40 MG/5 ML ORAL SUSPENSION NGT SCH (11:04)
[2021-02-09] MEDS: MULTIVIT-MINERALS ORAL LIQUID PO SCH (11:05)
[2021-02-09] MEDS ORDERED: SODIUM CHLORIDE 250 ML IV PRN (11:15)
[2021-02-09] MEDS: COLLAGENASE CLOSTRIDIUM HIST. 30 GRAMS TUBE TP SCH (18:00)
[2021-02-10] MEDS ORDERED: EPOETIN ALFA-EPBX 4,000 UNIT/ML VIAL IVPUSH ONE (07:30)
[2021-02-10] MEDS: AMINO ACIDS/PROTEIN HYDROLYS 30 ML LIQUID.PKT GT SCH ×2 (08:12→17:27)
[2021-02-10] MEDS: CALCIUM ACETATE 667 MG CAPSULE (FP) GT SCH ×3 (08:12→17:27)
[2021-02-10] MEDS ORDERED: MEROPENEM 500 MG VIAL (RESTRICTED TO ID) IVPB ONE (11:33)
[2021-02-10] MEDS ORDERED: DEXTROSE 5%-WATER 100 ML IVPB ONE (11:34)
[2021-02-10] MEDS ORDERED: PT OWN MED DRAWER 7, Y5N ONE (11:34)
[2021-02-10] MEDS: MEROPENEM 500 MG in DEXTROSE 5%-WATER 100 ML IVPB SCH (11:59)
[2021-02-10] MEDS: ASCORBIC ACID 500 MG/5 ML UNIT DOSE CUP GT SCH (12:00)
[2021-02-10] MEDS: FERROUS SULFATE 220 MG/5 ML ELIXIR GT SCH (12:00)
[2021-02-10] MEDS: FOLIC ACID 1 MG TABLET (FP) GT SCH (12:00)
[2021-02-10] MEDS: MULTIVIT-MINERALS ORAL LIQUID PO SCH (12:00)
[2021-02-10] MEDS ORDERED: ALPRAZolam 0.25 MG TABLET GT PRN (12:51)
[2021-02-10] MEDS: COLLAGENASE CLOSTRIDIUM HIST. 30 GRAMS TUBE TP SCH (12:53)
[2021-02-10] MEDS: ALPRAZolam 0.25 MG TABLET GT PRN (14:37)
[2021-02-10] MEDS ORDERED: CEFAZOLIN 2 GM/D5W 2 GM/50 ML ML IVPB ONE (22:14)
[2021-02-11 05:08] LABS: SARS-CoV-2 NAA Not Detected (Not Detected)
[2021-02-11] MEDS ORDERED: DEXTROSE 5%-WATER 100 ML IVPB ONE (09:06)
[2021-02-11] MEDS ORDERED: MEROPENEM 500 MG VIAL (RESTRICTED TO ID) IVPB ONE (09:06)
[2021-02-11] MEDS ORDERED: PT OWN MED DRAWER 7, Y5N ONE (09:07)
[2021-02-11] MEDS: AMINO ACIDS/PROTEIN HYDROLYS 30 ML LIQUID.PKT GT SCH ×2 (09:48→17:26)
[2021-02-11] MEDS: COLLAGENASE CLOSTRIDIUM HIST. 30 GRAMS TUBE TP SCH (09:48)
[2021-02-11] MEDS: MEROPENEM 500 MG in DEXTROSE 5%-WATER 100 ML IVPB SCH (09:49)
[2021-02-11] MEDS: CALCIUM ACETATE 667 MG CAPSULE (FP) GT SCH ×3 (09:50→17:26)
[2021-02-11] MEDS: FOLIC ACID 1 MG TABLET (FP) GT SCH (09:50)
[2021-02-11] MEDS: MULTIVIT-MINERALS ORAL LIQUID PO SCH (09:51)
[2021-02-11] MEDS: ASCORBIC ACID 500 MG/5 ML UNIT DOSE CUP GT SCH (09:51)
[2021-02-11] MEDS: FERROUS SULFATE 220 MG/5 ML ELIXIR GT SCH (09:51)
[2021-02-11] MEDS: FAMOTIDINE 40 MG/5 ML ORAL SUSPENSION NGT SCH (09:52)
[2021-02-11] MEDS: ALPRAZolam 0.25 MG TABLET GT PRN ×2 (13:04→21:27)
[2021-02-12] MEDS: ALPRAZolam 0.25 MG TABLET GT PRN ×2 (06:14→14:07)
[2021-02-12] MEDS ORDERED: SODIUM CHLORIDE 250 ML IV PRN (06:47)
[2021-02-12] MEDS ORDERED: EPOETIN ALFA-EPBX 4,000 UNIT/ML VIAL SQ ONE (07:00)
[2021-02-12] MEDS: CALCIUM ACETATE 667 MG CAPSULE (FP) GT SCH ×3 (09:16→17:31)
[2021-02-12] MEDS: AMINO ACIDS/PROTEIN HYDROLYS 30 ML LIQUID.PKT GT SCH ×2 (09:17→17:31)
[2021-02-12] MEDS ORDERED: MEROPENEM 500 MG VIAL (RESTRICTED TO ID) IVPB ONE (10:46)
[2021-02-12] MEDS ORDERED: DEXTROSE 5%-WATER 100 ML IVPB ONE (10:46)
[2021-02-12] MEDS: COLLAGENASE CLOSTRIDIUM HIST. 30 GRAMS TUBE TP SCH (10:48)
[2021-02-12] MEDS: MEROPENEM 500 MG in DEXTROSE 5%-WATER 100 ML IVPB SCH (10:48)
[2021-02-12] MEDS ORDERED: PT OWN MED DRAWER 7, Y5N ONE (13:57)
[2021-02-12] MEDS: MULTIVIT-MINERALS ORAL LIQUID PO SCH (14:01)
[2021-02-12] MEDS: FERROUS SULFATE 220 MG/5 ML ELIXIR GT SCH (14:02)
[2021-02-12] MEDS: FOLIC ACID 1 MG TABLET (FP) GT SCH (14:02)
[2021-02-12] MEDS: ASCORBIC ACID 500 MG/5 ML UNIT DOSE CUP GT SCH (14:02)
[2021-02-12] MEDS ORDERED: CEFAZOLIN 2 GM/D5W 2 GM/50 ML ML IVPB ONE (15:15)
[2021-02-12 22:02] VITALS: BP 101/69; PULSE 101; TEMP 99.1
== END 2021-02-12 21:05 | DRG 720 ==
LOC: JER 22:23 → JERBED 01-24 01:17 → J4S 01-24 15:00
PROVIDERS: ADMIT Internal Medicine; ATTEND Internal Medicine
PROC: 3E0G76Z Introduction of Nutritional Substance into Upper GI, Via Natural or Artificial Opening (ICD-10-PCS; principal; 2021-01-24)
PROC: 5A1D70Z Performance of Urinary Filtration, Intermittent, Less than 6 Hours Per Day (ICD-10-PCS; 2021-01-24)
PROC: 0J2TXYZ Change Other Device in Trunk Subcutaneous Tissue and Fascia, External Approach (ICD-10-PCS; 2021-01-29)
PROC: 02H633Z Insertion of Infusion Device into Right Atrium, Percutaneous Approach (ICD-10-PCS; 2021-01-29)
PROC: 02H633Z Insertion of Infusion Device into Right Atrium, Percutaneous Approach (ICD-10-PCS; 2021-02-05)
PROC: B548ZZA Ultrasonography of Superior Vena Cava, Guidance (ICD-10-PCS; 2021-02-05)
DX: A41.9 Sepsis, unspecified organism (principal); E43 Unspecified severe protein-calorie malnutrition; G93.1 Anoxic brain damage, not elsewhere classified; R53.2 Functional quadriplegia; A04.72 Enterocolitis due to Clostridium difficile, not specified as recurrent; I12.0 Hypertensive chronic kidney disease with stage 5 chronic kidney disease or end stage renal disease; N18.6 End stage renal disease; E83.39 Other disorders of phosphorus metabolism; R64 Cachexia; Z68.1 Body mass index [BMI] 19.9 or less, adult; Z86.74 Personal history of sudden cardiac arrest; E87.6 Hypokalemia; I25.2 Old myocardial infarction; D63.1 Anemia in chronic kidney disease; Z99.2 Dependence on renal dialysis; Z20.822 Contact with and (suspected) exposure to COVID-19; E78.5 Hyperlipidemia, unspecified; L89.153 Pressure ulcer of sacral region, stage 3
CPT/HCPCS: 36415; 36430; 36581; 71045-TC-FY; 76000-TC-FY; 77001-TC-FY; 80048; 80053; 82272; 82728; 83010; 83540; 83550; 83615; 83735; 84100; 84466; 85025; 85027; 85045; 85610; 85730; 86704; 86706; 86707; 86708; 86709; 86803; 86850; 86900; 86901; 86922; 87040; 87070; 87186; 87324; 87340; 87449; 93005; 93010; 93306-TC; 93971; 94760; 99285-25; C1751; C9803; G0480; J0131; J0885; J1644; P9058; Q5106; U0003; U0005

== ENCOUNTER 2021-05-07 13:04 | Inpatient (IN) | payer OTHER ==
[2021-05-07 13:15] VITALS: BMI 22.8
[2021-05-07] MEDS ORDERED: LACTATED RINGERS SOLUTION 1000 ML INFUS.BAG IV ONE (13:43)
[2021-05-07] MEDS ORDERED: PIPERACILLIN/TAZOB 4.5 GM 4.5 GM in DEXTROSE 5%-WATER 100 ML IVPB ONE (13:51)
[2021-05-07] MEDS ORDERED: VANCOMYCIN 1 GM in D5W (PRE-DOCKED) 1,000 MG/250 ML IVPB ONE (13:51)
[2021-05-07] MEDS ORDERED: VANCOMYCIN 1 GRAM (PRE-DOCKED) 1,000 MG/250 ML BAG IVPB ONE (14:00)
[2021-05-07] MEDS ORDERED: PIPERACILLIN/TAZOB 4.5 GM 4.5 GM/100 ML BAG IVPB ONE (14:00)
[2021-05-07] MEDS ORDERED: ACETAMINOPHEN 1000 MG/100 ML VIAL (NON FORMULARY) IVPB ONE (14:04)
[2021-05-07] MEDS ORDERED: ACETAMINOPHEN INJECTION 100 ML IVPB ONE (14:05)
[2021-05-07 14:14] LABS: BASO % 0.4 % (0-2.0); EOS % 0.2 % (0-4.5); HEMATOCRIT 23.3 % (35.4-49); HEMOGLOBIN 7.1 GM/dL (11.7-16.9); LYMPH % 5.8 % (8-40); MCH 26.4 pg (25.7-33.7); MCHC 30.6 g/dl (32.0-35.9); MEAN PLT VOLUME 9.9 fl (7.5-11.1); MONO % 10.7 % (3.8-10.2); NEUT % 82.9 % (42.8-82.8); PLATELET COUNT 126 10^3/uL (134-434); RBC 2.71 M/mm3 (4.00-5.60); RDW 17.6 % (11.9-15.9)
[2021-05-07 14:19] LABS: WHITE BLOOD COUNT 33.4 K/mm3 (4.0-10.0)
[2021-05-07 14:22] LABS: INR 1.13 (0.83-1.09); PROTHROMBIN TIME (PATIENT) 13.6 SEC (9.7-13.0)
[2021-05-07 14:25] LABS: ACTIVATED PTT 29.2 SECONDS (25.2-36.5)
[2021-05-07 14:34] LABS: CHLORIDE 99 mmol/L (98-107); SODIUM 139 mmol/L (136-145)
[2021-05-07 14:36] LABS: ALBUMIN 2.2 g/dl (3.4-5.0); ANION GAP 15 MMOL/L (8-16); CALCIUM 9.6 mg/dL (8.5-10.1); CO2 24 mmol/L (21-32)
[2021-05-07 14:37] LABS: GLUCOSE,RANDOM 133 mg/dL (74-106)
[2021-05-07 14:39] LABS: SGOT/AST 142 U/L (15-37); SGPT/ALT 79 U/L (13-61)
[2021-05-07 14:40] LABS: CREATININE 7.4 mg/dL (0.55-1.3)
[2021-05-07 14:41] LABS: BILIRUBIN,TOTAL 0.7 mg/dL (0.2-1)
[2021-05-07 14:42] LABS: ALK PHOS 468 U/L (45-117)
[2021-05-07 14:59] LABS: BLOOD UREA NITROGEN 104.8 mg/dL (7-18); LACTIC ACID 4.5 mmol/L (0.4-2.0)
[2021-05-07 15:03] LABS: ANISOCYTOSIS 0; MACROCYTOSIS 0; PLATELET ESTIMATE DECREASED
[2021-05-07] MEDS ORDERED: SODIUM CHLORIDE IV ONE (16:18)
[2021-05-07] MEDS ORDERED: SODIUM CHLORIDE 500 ML IV STA (19:44)
[2021-05-07] MEDS ORDERED: MUPIROCIN 2% TOPICAL OINTMENT FOR DECOLONIZATION NS SCH (22:00)
[2021-05-07] MEDS ORDERED: CHLORHEXIDINE GLUCONATE 4% CLEANSER FOR DECOLONIZATION TP SCH (22:00)
[2021-05-07] MEDS ORDERED: NOREPINEPHRINE BITARTRATE 4,000 MCG in SODIUM CHLORIDE 0.45% 496 ML IV SCH (23:45)
[2021-05-07] MEDS ORDERED: SODIUM CHLORIDE 0.45% IV SCH (23:45)
[2021-05-07] MEDS ORDERED: NOREPINEPHRINE BITARTRATE IV SCH (23:45)
[2021-05-07] MEDS: MUPIROCIN 2% TOPICAL OINTMENT FOR DECOLONIZATION NS SCH (23:55)
[2021-05-08] MEDS: SODIUM CHLORIDE 1,000 ML IV SCH (00:14)
[2021-05-08] MEDS: NOREPINEPHRINE BITARTRATE 16,000 MCG in SODIUM CHLORIDE 484 ML IV SCH (00:21)
[2021-05-08] MEDS: VASOPRESSIN 40 UNITS in SODIUM CHLORIDE 98 ML IVPB SCH (03:00)
[2021-05-08] MEDS ORDERED: PIPERACILLIN/TAZOB 2.25 GM 2.25 GM in DEXTROSE 5%-WATER - 50 ML IVPB SCH ×2 (03:00→10:30)
[2021-05-08] MEDS ORDERED: HEPARIN NA (PORCINE) 5,000 UNITS/ML 1ML VIAL SQ SCH (06:00)
[2021-05-08] MEDS ORDERED: [UNRECOGNIZED DRUG - OTHER] TP SCH (06:00)
[2021-05-08 07:00] LABS: BASO % 0.2 % (0-2.0); HEMATOCRIT 27.1 % (35.4-49); HEMOGLOBIN 8.5 GM/dL (11.7-16.9); LYMPH % 2.9 % (8-40); MCH 26.8 pg (25.7-33.7); MCHC 31.4 g/dl (32.0-35.9); MEAN CELL VOLUME 85.4 fl (80-96); MEAN PLT VOLUME 9.5 fl (7.5-11.1); MONO % 7.9 % (3.8-10.2); PLATELET COUNT 79 10^3/uL (134-434); RBC 3.18 M/mm3 (4.00-5.60); RDW 17.7 % (11.9-15.9)
[2021-05-08 07:10] LABS: WHITE BLOOD COUNT 37.5 K/mm3 (4.0-10.0)
[2021-05-08 07:14] LABS: CHLORIDE 105 mmol/L (98-107); SODIUM 140 mmol/L (136-145)
[2021-05-08 07:18] LABS: CALCIUM 9.4 mg/dL (8.5-10.1)
[2021-05-08 07:19] LABS: ANION GAP 11 MMOL/L (8-16); CO2 24 mmol/L (21-32); GLUCOSE,RANDOM 167 mg/dL (74-106); MAGNESIUM 2.3 mg/dL (1.8-2.4)
[2021-05-08 07:22] LABS: PHOSPHOROUS 1.4 mg/dL (2.5-4.9); SGOT/AST 243 U/L (15-37); SGPT/ALT 96 U/L (13-61)
[2021-05-08 07:23] LABS: BILIRUBIN,TOTAL 1.1 mg/dL (0.2-1); TOT PROT 6.5 g/dl (6.4-8.2)
[2021-05-08 07:33] LABS: ALK PHOS 406 U/L (45-117); BLOOD UREA NITROGEN 121.3 mg/dL (7-18); CREATININE 7.6 mg/dL (0.55-1.3)
[2021-05-08] MEDS: ACETAMINOPHEN 1000 MG/100 ML VIAL (NON FORMULARY) IVPB PRN ×2 (07:49→15:09)
[2021-05-08] MEDS ORDERED: PT OWN MED DRAWER 7, Y5N ONE (09:08)
[2021-05-08] MEDS ORDERED: PIPERACILLIN/TAZOBACTAM 2.25 GM VIAL IVPB ONE (09:09)
[2021-05-08] MEDS ORDERED: DEXTROSE 5%-WATER - 50 ML IVPB ONE (09:09)
[2021-05-08] MEDS: SERTRALINE HCL 25 MG TABLET (FP) NR SCH (09:11)
[2021-05-08] MEDS: THIAMINE HCL 100 MG TABLET (FP) NGT SCH (09:11)
[2021-05-08] MEDS: FOLIC ACID 1 MG TABLET (FP) GT SCH (09:11)
[2021-05-08] MEDS: COLLAGENASE CLOSTRIDIUM HIST. 30 GRAMS TUBE TP SCH (09:12)
[2021-05-08] MEDS: MUPIROCIN 2% TOPICAL OINTMENT FOR DECOLONIZATION NS SCH ×2 (09:12→22:00)
[2021-05-08] MEDS: MULTIVIT-MINERALS ORAL LIQUID GT SCH (09:13)
[2021-05-08] MEDS: FERROUS SULFATE 220 MG/5 ML ELIXIR GT SCH (09:13)
[2021-05-08] MEDS: FAMOTIDINE 40 MG/5 ML ORAL SUSPENSION NGT SCH (09:14)
[2021-05-08 09:43] LABS: ANISOCYTOSIS 1+; MACROCYTOSIS 0; PLATELET ESTIMATE DECREASED
[2021-05-08] MEDS ORDERED: FLUDROCORTISONE ACETATE 0.1 MG TABLET (FP) PO SCH (10:45)
[2021-05-08] MEDS ORDERED: VANCOMYCIN 1 GRAM (PRE-DOCKED) 1,000 MG/250 ML BAG IVPB ONE (12:00)
[2021-05-08] MEDS ORDERED: DEXTROSE 5%-WATER 100 ML IVPB ONE (12:05)
[2021-05-08] MEDS ORDERED: MEROPENEM 1 GM VIAL (RESTRICTED TO ID) IVPB ONE (12:05)
[2021-05-08] MEDS: HYDROCORTISONE SOD SUCCINATE 100 MG/2 ML VIAL IVPUSH SCH ×3 (12:18→22:50)
[2021-05-08] MEDS: FLUDROCORTISONE ACETATE 0.1 MG TABLET (FP) PO SCH ×2 (12:19→12:30)
[2021-05-08] MEDS: MEROPENEM 1 GM in DEXTROSE 5%-WATER 100 ML IVPB SCH (13:11)
[2021-05-08] MEDS ORDERED: SODIUM CHLORIDE 0.9% 500 ML INFUS.BAG IV ONE (15:01)
[2021-05-08] MEDS ORDERED: VANCOMYCIN 500 MG in DEXTROSE 5%-WATER - 100 ML IVPB ONE (18:00)
[2021-05-08 19:10] LABS: URINE APPEARANCE Cloudy; URINE BILIRUBIN 2+ (NEGATIVE); URINE COLOR Brown; URINE GLUCOSE (UA) Negative (NEGATIVE); URINE KETONE Trace (NEGATIVE); URINE LEUK ESTERASE 1+ (NEGATIVE); URINE NITRITE Negative (NEGATIVE); URINE PROTEIN 3+ (NEGATIVE)
[2021-05-08 20:07] LABS: EPI CELLS 5.1 /uL (0-25.1); HYALINE CASTS 10.22 /uL (0-3.1); URINE BACTERIA MODERATE /uL (0-1359); URINE RBC 18223.9 /uL (0-23.9); URINE WBC 7077.4 /uL (0-25.8)
[2021-05-08 20:22] LABS: CHLORIDE 107 mmol/L (98-107); SODIUM 142 mmol/L (136-145)
[2021-05-08 20:24] LABS: ALBUMIN 1.8 g/dl (3.4-5.0); ANION GAP 10 MMOL/L (8-16); CALCIUM 9.3 mg/dL (8.5-10.1); CO2 24 mmol/L (21-32); GLUCOSE,RANDOM 182 mg/dL (74-106); MAGNESIUM 2.4 mg/dL (1.8-2.4)
[2021-05-08 20:27] LABS: SGPT/ALT 91 U/L (13-61)
[2021-05-08 20:29] LABS: BILIRUBIN,TOTAL 0.9 mg/dL (0.2-1)
[2021-05-08 20:36] LABS: SGOT/AST 204 U/L (15-37)
[2021-05-08 21:11] LABS: ALK PHOS 339 U/L (45-117); BLOOD UREA NITROGEN 132.2 mg/dL (7-18); CREATININE 7.8 mg/dL (0.55-1.3)
[2021-05-08] MEDS: CHLORHEXIDINE GLUCONATE 4% CLEANSER FOR DECOLONIZATION TP SCH (22:00)
[2021-05-08] MEDS: OLANZapine 5 MG TABLET GT SCH (22:50)
[2021-05-09] MEDS: SODIUM CHLORIDE 1,000 ML IV SCH
[2021-05-09] MEDS: VASOPRESSIN 40 UNITS in SODIUM CHLORIDE 98 ML IVPB SCH (01:01)
[2021-05-09] MEDS ORDERED: ACETAMINOPHEN INJECTION 100 ML IVPB ONE (03:13)
[2021-05-09] MEDS: HYDROCORTISONE SOD SUCCINATE 100 MG/2 ML VIAL IVPUSH SCH ×4 (05:59→23:59)
[2021-05-09 07:31] LABS: BASO % 0.3 % (0-2.0); EOS % 0.8 % (0-4.5); HEMATOCRIT 26.1 % (35.4-49); HEMOGLOBIN 8.2 GM/dL (11.7-16.9); LYMPH % 3.7 % (8-40); MCH 26.6 pg (25.7-33.7); MCHC 31.3 g/dl (32.0-35.9); MEAN CELL VOLUME 85.1 fl (80-96); MEAN PLT VOLUME 9.7 fl (7.5-11.1); MONO % 5.5 % (3.8-10.2); NEUT % 89.7 % (42.8-82.8); PLATELET COUNT 57 10^3/uL (134-434); RBC 3.07 M/mm3 (4.00-5.60); RDW 17.8 % (11.9-15.9)
[2021-05-09 07:52] LABS: WHITE BLOOD COUNT 38.2 K/mm3 (4.0-10.0)
[2021-05-09 08:52] LABS: EPI CELLS 2 /uL (0-25.1); HYALINE CASTS 1 /uL (0-3.1); PH,URINE 5.5 (5.0-8.0); URINE APPEARANCE TURBID; URINE BILIRUBIN 1+ (NEGATIVE); URINE COLOR ORANGE; URINE GLUCOSE (UA) TRACE (NEGATIVE); URINE KETONE NEGATIVE (NEGATIVE); URINE LEUK ESTERASE 2+ (NEGATIVE); URINE NITRITE POSITIVE (NEGATIVE); URINE PROTEIN 3+ (NEGATIVE); URINE RBC 7689 /uL (0-23.9); URINE UROBILINOGEN 0.2 mg/dL (0.2-1.0); URINE WBC 1115 /uL (0-25.8)
[2021-05-09] MEDS ORDERED: MEROPENEM 1 GM VIAL (RESTRICTED TO ID) IVPB ONE (09:09)
[2021-05-09] MEDS ORDERED: DEXTROSE 5%-WATER 100 ML IVPB ONE (09:09)
[2021-05-09] MEDS ORDERED: PT OWN MED DRAWER 7, Y5N ONE (09:12)
[2021-05-09 09:24] LABS: CHLORIDE 109 mmol/L (98-107); SODIUM 143 mmol/L (136-145)
[2021-05-09 09:27] LABS: ANION GAP 12 MMOL/L (8-16); CALCIUM 9.1 mg/dL (8.5-10.1); CO2 22 mmol/L (21-32)
[2021-05-09 09:28] LABS: GLUCOSE,RANDOM 161 mg/dL (74-106)
[2021-05-09] MEDS: FERROUS SULFATE 220 MG/5 ML ELIXIR GT SCH (09:36)
[2021-05-09] MEDS: MULTIVIT-MINERALS ORAL LIQUID GT SCH (09:36)
[2021-05-09] MEDS: MUPIROCIN 2% TOPICAL OINTMENT FOR DECOLONIZATION NS SCH ×2 (09:36→22:03)
[2021-05-09 09:37] LABS: BLOOD UREA NITROGEN 143.4 mg/dL (7-18); CREATININE 8.2 mg/dL (0.55-1.3)
[2021-05-09] MEDS: COLLAGENASE CLOSTRIDIUM HIST. 30 GRAMS TUBE TP SCH (09:37)
[2021-05-09] MEDS: FOLIC ACID 1 MG TABLET (FP) GT SCH (09:37)
[2021-05-09] MEDS: MEROPENEM 1 GM in DEXTROSE 5%-WATER 100 ML IVPB SCH (09:37)
[2021-05-09] MEDS: FLUDROCORTISONE ACETATE 0.1 MG TABLET (FP) PO SCH (09:37)
[2021-05-09] MEDS: THIAMINE HCL 100 MG TABLET (FP) NGT SCH (09:41)
[2021-05-09] MEDS: SERTRALINE HCL 25 MG TABLET (FP) NR SCH (09:41)
[2021-05-09 09:54] LABS: ANISOCYTOSIS 0; MACROCYTOSIS 0; PLATELET ESTIMATE DECREASED
[2021-05-09] MEDS ORDERED: PIPERACILLIN/TAZOB 2.25 GM 2.25 GM in DEXTROSE 5%-WATER - 50 ML IVPB SCH (10:00)
[2021-05-09] MEDS ORDERED: VANCOMYCIN/WATER FOR INJ (PEG) 750 MG/150 ML BAG IVPB SCH (10:30)
[2021-05-09] MEDS ORDERED: SODIUM CHLORIDE 250 ML IV PRN ×2 (10:32→10:33)
[2021-05-09] MEDS: HALOPERIDOL 5 MG TABLET GT SCH (11:33)
[2021-05-09] MEDS ORDERED: KETAMINE HCL 200 MG/20 ML VIAL IVPUSH ONE (11:49)
[2021-05-09] MEDS ORDERED: KETAMINE HCL 500 MG/10 ML VIAL IV ONE (12:25)
[2021-05-09] MEDS ORDERED: EPOETIN ALFA-EPBX 20,000 UNIT/ML VIAL IVPUSH ONE (14:15)
[2021-05-09] MEDS: ALBUMIN HUMAN 25% 12.5 GM/50 ML VIAL IVPB SCH ×4 (14:35→16:54)
[2021-05-09 15:29] LABS: URINE BACTERIA 2.7 /uL (0-1359)
[2021-05-09] MEDS: ALBUTEROL SO4 2.5/IPRATROPIUM 0.5 INH SOL 3 ML VIAL.NEB. NEB SCH ×2 (20:43→20:46)
[2021-05-09] MEDS: NOREPINEPHRINE BITARTRATE 16,000 MCG in SODIUM CHLORIDE 484 ML IV SCH ×2 (21:28)
[2021-05-09] MEDS: CHLORHEXIDINE GLUCONATE 4% CLEANSER FOR DECOLONIZATION TP SCH (22:03)
[2021-05-10] MEDS: NOREPINEPHRINE BITARTRATE 16,000 MCG in SODIUM CHLORIDE 484 ML IV SCH (00:02)
[2021-05-10] MEDS: VASOPRESSIN 40 UNITS in SODIUM CHLORIDE 98 ML IVPB SCH (01:43)
[2021-05-10] MEDS: OLANZapine 5 MG TABLET GT SCH ×2 (03:13→21:49)
[2021-05-10] MEDS: HYDROCORTISONE SOD SUCCINATE 100 MG/2 ML VIAL IVPUSH SCH ×4 (06:00→22:29)
[2021-05-10 07:26] LABS: BASO % 0.2 % (0-2.0); HEMATOCRIT 24.5 % (35.4-49); HEMOGLOBIN 7.6 GM/dL (11.7-16.9); LYMPH % 4.3 % (8-40); MCH 26.2 pg (25.7-33.7); MCHC 31.2 g/dl (32.0-35.9); MEAN CELL VOLUME 84.1 fl (80-96); MONO % 5.1 % (3.8-10.2); NEUT % 90.4 % (42.8-82.8); PLATELET COUNT 57 10^3/uL (134-434); RBC 2.91 M/mm3 (4.00-5.60); RDW 17.7 % (11.9-15.9)
[2021-05-10 07:51] LABS: WHITE BLOOD COUNT 27.9 K/mm3 (4.0-10.0)
[2021-05-10 08:06] LABS: ALBUMIN 1.9 g/dl (3.4-5.0)
[2021-05-10 08:07] LABS: CALCIUM 8.6 mg/dL (8.5-10.1); MAGNESIUM 2.5 mg/dL (1.8-2.4)
[2021-05-10 08:09] LABS: PHOSPHOROUS 4.1 mg/dL (2.5-4.9)
[2021-05-10 08:10] LABS: BILIRUBIN,TOTAL 0.6 mg/dL (0.2-1); TOT PROT 6.3 g/dl (6.4-8.2)
[2021-05-10 08:11] LABS: CREATININE 5.5 mg/dL (0.55-1.3)
[2021-05-10 10:12] LABS: ANISOCYTOSIS 0; MACROCYTOSIS 0; PLATELET ESTIMATE DECREASED
[2021-05-10] MEDS ORDERED: MEROPENEM 1 GM VIAL (RESTRICTED TO ID) IVPB ONE (10:18)
[2021-05-10] MEDS ORDERED: DEXTROSE 5%-WATER 100 ML IVPB ONE (10:19)
[2021-05-10] MEDS ORDERED: PT OWN MED DRAWER 7, Y5N ONE ×3 (10:21→22:39)
[2021-05-10] MEDS: MUPIROCIN 2% TOPICAL OINTMENT FOR DECOLONIZATION NS SCH ×2 (10:27→22:29)
[2021-05-10] MEDS: MULTIVIT-MINERALS ORAL LIQUID GT SCH (10:27)
[2021-05-10] MEDS: FERROUS SULFATE 220 MG/5 ML ELIXIR GT SCH (10:28)
[2021-05-10] MEDS: FLUDROCORTISONE ACETATE 0.1 MG TABLET (FP) PO SCH (10:28)
[2021-05-10] MEDS: MEROPENEM 1 GM in DEXTROSE 5%-WATER 100 ML IVPB SCH (10:32)
[2021-05-10] MEDS: FOLIC ACID 1 MG TABLET (FP) GT SCH (10:32)
[2021-05-10] MEDS: FAMOTIDINE 40 MG/5 ML ORAL SUSPENSION NGT SCH (10:36)
[2021-05-10] MEDS: SERTRALINE HCL 25 MG TABLET (FP) NR SCH (10:37)
[2021-05-10] MEDS: COLLAGENASE CLOSTRIDIUM HIST. 30 GRAMS TUBE TP SCH (10:37)
[2021-05-10] MEDS: THIAMINE HCL 100 MG TABLET (FP) NGT SCH (10:37)
[2021-05-10] MEDS: CEFAZOLIN 1 GM/D5W 1 GM/50 ML BAG IVPB SCH (13:45)
[2021-05-10] MEDS: CHLORHEXIDINE GLUCONATE 4% CLEANSER FOR DECOLONIZATION TP SCH (22:29)
[2021-05-10] MEDS: ACETAMINOPHEN 650 MG/20.3 ML ORAL SOLUTION (CUPS) GT PRN (22:41)
[2021-05-11] MEDS: VASOPRESSIN 40 UNITS in SODIUM CHLORIDE 98 ML IVPB SCH (01:00)
[2021-05-11] MEDS: NOREPINEPHRINE BITARTRATE 16,000 MCG in SODIUM CHLORIDE 484 ML IV SCH (01:05)
[2021-05-11] MEDS: ACETAMINOPHEN 650 MG/20.3 ML ORAL SOLUTION (CUPS) GT PRN (05:03)
[2021-05-11] MEDS: HYDROCORTISONE SOD SUCCINATE 100 MG/2 ML VIAL IVPUSH SCH ×4 (05:04→22:02)
[2021-05-11] MEDS ORDERED: SODIUM CHLORIDE 250 ML IV STA (06:31)
[2021-05-11 07:36] LABS: BASO % 0.1 % (0-2.0); HEMATOCRIT 26.2 % (35.4-49); HEMOGLOBIN 8.3 GM/dL (11.7-16.9); LYMPH % 5.3 % (8-40); MCH 26.4 pg (25.7-33.7); MCHC 31.5 g/dl (32.0-35.9); MEAN CELL VOLUME 83.8 fl (80-96); MEAN PLT VOLUME 9.5 fl (7.5-11.1); MONO % 4.1 % (3.8-10.2); NEUT % 90.5 % (42.8-82.8); PLATELET COUNT 71 10^3/uL (134-434); RBC 3.13 M/mm3 (4.00-5.60); RDW 17.5 % (11.9-15.9)
[2021-05-11 07:54] LABS: CHLORIDE 109 mmol/L (98-107); SODIUM 147 mmol/L (136-145)
[2021-05-11 07:58] LABS: ANION GAP 13 MMOL/L (8-16); CO2 24 mmol/L (21-32)
[2021-05-11 07:59] LABS: ALBUMIN 1.9 g/dl (3.4-5.0)
[2021-05-11 08:00] LABS: GLUCOSE,RANDOM 145 mg/dL (74-106)
[2021-05-11 08:02] LABS: CALCIUM 8.4 mg/dL (8.5-10.1); CREATININE 6.9 mg/dL (0.55-1.3); MAGNESIUM 2.8 mg/dL (1.8-2.4); SGOT/AST 36 U/L (15-37); SGPT/ALT 52 U/L (13-61)
[2021-05-11 08:03] LABS: BILIRUBIN,TOTAL 0.6 mg/dL (0.2-1); PHOSPHOROUS 5.4 mg/dL (2.5-4.9); TOT PROT 6.3 g/dl (6.4-8.2)
[2021-05-11 08:05] LABS: ALK PHOS 301 U/L (45-117)
[2021-05-11 08:06] LABS: BLOOD UREA NITROGEN 132.5 mg/dL (7-18)
[2021-05-11 09:19] LABS: ANISOCYTOSIS 1+; MACROCYTOSIS 0; PLATELET ESTIMATE DECREASED; TARGET CELLS 1+; TOXIC GRANULATION 1+
[2021-05-11] MEDS ORDERED: DEXTROSE 5%-WATER 100 ML IVPB ONE (09:19)
[2021-05-11] MEDS ORDERED: MEROPENEM 1 GM VIAL (RESTRICTED TO ID) IVPB ONE (09:19)
[2021-05-11] MEDS: CEFAZOLIN 1 GM/D5W 1 GM/50 ML BAG IVPB SCH (09:23)
[2021-05-11] MEDS: MUPIROCIN 2% TOPICAL OINTMENT FOR DECOLONIZATION NS SCH ×2 (09:24→22:00)
[2021-05-11] MEDS: MULTIVIT-MINERALS ORAL LIQUID GT SCH (09:26)
[2021-05-11] MEDS ORDERED: PT OWN MED DRAWER 7, Y5N ONE ×2 (09:26→12:21)
[2021-05-11] MEDS: FLUDROCORTISONE ACETATE 0.1 MG TABLET (FP) PO SCH (09:27)
[2021-05-11] MEDS: FERROUS SULFATE 220 MG/5 ML ELIXIR GT SCH (09:27)
[2021-05-11] MEDS: FOLIC ACID 1 MG TABLET (FP) GT SCH (09:29)
[2021-05-11] MEDS: MEROPENEM 1 GM in DEXTROSE 5%-WATER 100 ML IVPB SCH (09:30)
[2021-05-11] MEDS: COLLAGENASE CLOSTRIDIUM HIST. 30 GRAMS TUBE TP SCH (09:30)
[2021-05-11] MEDS: SERTRALINE HCL 25 MG TABLET (FP) NR SCH (09:31)
[2021-05-11] MEDS: THIAMINE HCL 100 MG TABLET (FP) NGT SCH (09:31)
[2021-05-11] MEDS ORDERED: MORPHINE SULFATE 2 MG/ML VIAL ONE (10:33)
[2021-05-11] MEDS ORDERED: MORPHINE SULFATE 2 MG/ML VIAL IVPUSH ONE ×2 (10:40→11:52)
[2021-05-11] MEDS ORDERED: ACYCLOVIR 1000 MG (50MG/ML) VIAL IVPB SCH (10:45)
[2021-05-11] MEDS ORDERED: METOPROLOL TARTRATE 5 MG/5 ML VIAL ONE (11:34)
[2021-05-11] MEDS ORDERED: METOPROLOL TARTRATE 5 MG/5 ML VIAL IVPUSH PRN (11:53)
[2021-05-11] MEDS: ACYCLOVIR IVPB SCH (12:23)
[2021-05-11] MEDS: WATER IVPB SCH (12:23)
[2021-05-11] MEDS: METOPROLOL TARTRATE 25 MG TABLET (FP) PO SCH ×2 (12:23→22:01)
[2021-05-11] MEDS: DEXTROSE 5% IVPB SCH (12:23)
[2021-05-11 14:07] LABS: HEP B CORE AB, TOT Negative (Negative)
[2021-05-11] MEDS: MORPHINE SULFATE 2 MG/ML VIAL IVPUSH SCH ×2 (18:00→22:03)
[2021-05-11 19:09] LABS: CHLORIDE 113 mmol/L (98-107); SODIUM 147 mmol/L (136-145)
[2021-05-11 19:12] LABS: ANION GAP 13 MMOL/L (8-16); CALCIUM 7.3 mg/dL (8.5-10.1); CO2 21 mmol/L (21-32); GLUCOSE,RANDOM 117 mg/dL (74-106)
[2021-05-11 19:16] LABS: CREATININE 6.5 mg/dL (0.55-1.3)
[2021-05-11 19:24] LABS: BLOOD UREA NITROGEN 139.5 mg/dL (7-18)
[2021-05-11] MEDS: CHLORHEXIDINE GLUCONATE 4% CLEANSER FOR DECOLONIZATION TP SCH (22:00)
[2021-05-11] MEDS: OLANZapine 5 MG TABLET GT SCH (22:01)
[2021-05-12] MEDS: MORPHINE SULFATE 2 MG/ML VIAL IVPUSH SCH ×6 (04:58→21:47)
[2021-05-12 07:02] LABS: CHLORIDE 110 mmol/L (98-107); SODIUM 145 mmol/L (136-145)
[2021-05-12 07:03] LABS: CALCIUM 8.1 mg/dL (8.5-10.1)
[2021-05-12 07:04] LABS: ALBUMIN 1.9 g/dl (3.4-5.0); ANION GAP 13 MMOL/L (8-16); CO2 23 mmol/L (21-32); GLUCOSE,RANDOM 137 mg/dL (74-106)
[2021-05-12 07:07] LABS: PHOSPHOROUS 7.7 mg/dL (2.5-4.9); SGOT/AST 29 U/L (15-37); SGPT/ALT 33 U/L (13-61)
[2021-05-12 07:09] LABS: BILIRUBIN,TOTAL 0.6 mg/dL (0.2-1); TOT PROT 6.3 g/dl (6.4-8.2)
[2021-05-12 07:24] LABS: ALK PHOS 266 U/L (45-117); BLOOD UREA NITROGEN 175.2 mg/dL (7-18); CREATININE 7.6 mg/dL (0.55-1.3)
[2021-05-12] MEDS ORDERED: SODIUM ZIRCONIUM CYCLOSILICATE (LOKELMA) 10 GM PACKET PO ONE (08:07)
[2021-05-12] MEDS: ERTAPENEM SODIUM 0.5 GM in SODIUM CHLORIDE 50 ML IVPB SCH (09:39)
[2021-05-12] MEDS ORDERED: CEFAZOLIN 1 GM in DEXTROSE 5%-WATER - 50 ML IVPB SCH (10:00)
[2021-05-12] MEDS ORDERED: ERTAPENEM SODIUM 0.5 GM in SODIUM CHLORIDE 50 ML IVPB SCH (10:00)
[2021-05-12] MEDS ORDERED: PT OWN MED DRAWER 7, Y5N ONE ×5 (10:19→21:46)
[2021-05-12] MEDS: HYDROCORTISONE SOD SUCCINATE 100 MG/2 ML VIAL IVPUSH SCH ×3 (10:27→19:10)
[2021-05-12] MEDS: MULTIVIT-MINERALS ORAL LIQUID GT SCH (10:28)
[2021-05-12] MEDS: MUPIROCIN 2% TOPICAL OINTMENT FOR DECOLONIZATION NS SCH ×2 (10:28→21:48)
[2021-05-12] MEDS: FOLIC ACID 1 MG TABLET (FP) GT SCH (10:28)
[2021-05-12] MEDS: HALOPERIDOL 5 MG TABLET GT SCH (10:28)
[2021-05-12] MEDS: SERTRALINE HCL 25 MG TABLET (FP) NR SCH (10:29)
[2021-05-12] MEDS: FLUDROCORTISONE ACETATE 0.1 MG TABLET (FP) PO SCH (10:29)
[2021-05-12] MEDS: THIAMINE HCL 100 MG TABLET (FP) NGT SCH (10:29)
[2021-05-12] MEDS ORDERED: VANCOMYCIN/WATER FOR INJ (PEG) 750 MG/150 ML BAG IVPB SCH (10:30)
[2021-05-12] MEDS: FERROUS SULFATE 220 MG/5 ML ELIXIR GT SCH (11:06)
[2021-05-12] MEDS: COLLAGENASE CLOSTRIDIUM HIST. 30 GRAMS TUBE TP SCH (11:06)
[2021-05-12] MEDS ORDERED: LORazepam 2 MG/ML SDV VIAL IVPUSH ONE ×2 (11:38→11:49)
[2021-05-12] MEDS: FAMOTIDINE 40 MG/5 ML ORAL SUSPENSION NGT SCH (11:38)
[2021-05-12] MEDS ORDERED: SODIUM CHLORIDE 250 ML IV PRN (13:22)
[2021-05-12] MEDS ORDERED: HEPARIN NA (PORCINE) 5,000 UNITS/ML 1ML VIAL SQ SCH (14:00)
[2021-05-12] MEDS ORDERED: EPOETIN ALFA-EPBX 4,000 UNIT/ML VIAL IVPUSH ONE (14:00)
[2021-05-12] MEDS: METOPROLOL TARTRATE 25 MG TABLET (FP) PO SCH ×2 (14:00→19:15)
[2021-05-12] MEDS: WATER IVPB SCH (16:55)
[2021-05-12] MEDS: DEXTROSE 5% IVPB SCH (16:55)
[2021-05-12] MEDS: ACYCLOVIR IVPB SCH (16:55)
[2021-05-12] MEDS: LYTES/YERBA SANTA 60 ML SPRAY MM SCH (17:07)
[2021-05-12] MEDS: AMINO ACIDS/PROTEIN HYDROLYS 30 ML LIQUID.PKT PO SCH (17:29)
[2021-05-12] MEDS: VASOPRESSIN 40 UNITS in SODIUM CHLORIDE 98 ML IVPB SCH (19:11)
[2021-05-12] MEDS: NOREPINEPHRINE BITARTRATE 16,000 MCG in SODIUM CHLORIDE 484 ML IV SCH (19:11)
[2021-05-12] MEDS: PATIENT'S OWN MEDICATION (NON-FORMULARY) (Vit A/Vitamin D3/E/Aloe V/Zinc [Periguard Ointme TP SCH (19:20)
[2021-05-12] MEDS: PATIENT'S OWN MEDICATION (NON-FORMULARY) (Lidocaine [Aspercreme Lidocaine] 1 EACH Adh..Pat TP SCH ×2 (19:20→19:21)
[2021-05-12] MEDS: PATIENT'S OWN MEDICATION (NON-FORMULARY) (Diclofenac Sodium [Voltaren] 100 GM Gel..Gram.) TP SCH (19:20)
[2021-05-12] MEDS: CEFAZOLIN 1 GM/D5W 1 GM/50 ML BAG IVPB SCH (21:47)
[2021-05-12] MEDS: CHLORHEXIDINE GLUCONATE 4% CLEANSER FOR DECOLONIZATION TP SCH (21:48)
[2021-05-12] MEDS: OLANZapine 5 MG TABLET GT SCH (21:48)
[2021-05-13] MEDS: METOPROLOL TARTRATE 25 MG TABLET (FP) PO SCH ×4 (00:20→22:07)
[2021-05-13] MEDS: MORPHINE SULFATE 2 MG/ML VIAL IVPUSH SCH ×6 (02:24→21:38)
[2021-05-13 05:57] LABS: BASO % 0.2 % (0-2.0); EOS % 0.1 % (0-4.5); HEMATOCRIT 23.8 % (35.4-49); HEMOGLOBIN 7.4 GM/dL (11.7-16.9); LYMPH % 5.1 % (8-40); MCH 26.5 pg (25.7-33.7); MEAN CELL VOLUME 85.4 fl (80-96); MEAN PLT VOLUME 9.4 fl (7.5-11.1); MONO % 4.2 % (3.8-10.2); NEUT % 90.4 % (42.8-82.8); PLATELET COUNT 106 10^3/uL (134-434); RBC 2.78 M/mm3 (4.00-5.60); RDW 17.3 % (11.9-15.9); WHITE BLOOD COUNT 23.1 K/mm3 (4.0-10.0)
[2021-05-13 06:18] LABS: CALCIUM 7.8 mg/dL (8.5-10.1)
[2021-05-13 06:19] LABS: MAGNESIUM 2.2 mg/dL (1.8-2.4)
[2021-05-13 06:22] LABS: CREATININE 4.3 mg/dL (0.55-1.3)
[2021-05-13 06:23] LABS: BILIRUBIN,TOTAL 0.4 mg/dL (0.2-1); TOT PROT 6.2 g/dl (6.4-8.2)
[2021-05-13 06:25] LABS: BLOOD UREA NITROGEN 87.5 mg/dL (7-18)
[2021-05-13 08:16] LABS: ANISOCYTOSIS 1+; MACROCYTOSIS 0; PLATELET ESTIMATE DECREASED
[2021-05-13] MEDS ORDERED: PT OWN MED DRAWER 7, Y5N ONE ×4 (09:07→22:31)
[2021-05-13] MEDS: CEFAZOLIN 1 GM/D5W 1 GM/50 ML BAG IVPB SCH (09:25)
[2021-05-13] MEDS: AMINO ACIDS/PROTEIN HYDROLYS 30 ML LIQUID.PKT PO SCH ×2 (09:29→18:30)
[2021-05-13] MEDS: FERROUS SULFATE 220 MG/5 ML ELIXIR GT SCH (09:29)
[2021-05-13] MEDS: MULTIVIT-MINERALS ORAL LIQUID GT SCH (09:29)
[2021-05-13] MEDS: THIAMINE HCL 100 MG TABLET (FP) NGT SCH (09:30)
[2021-05-13] MEDS: FOLIC ACID 1 MG TABLET (FP) GT SCH (09:31)
[2021-05-13] MEDS: SERTRALINE HCL 25 MG TABLET (FP) NR SCH (09:31)
[2021-05-13] MEDS: ACETAMINOPHEN 650 MG/20.3 ML ORAL SOLUTION (CUPS) GT PRN (09:57)
[2021-05-13] MEDS: COLLAGENASE CLOSTRIDIUM HIST. 30 GRAMS TUBE TP SCH (11:00)
[2021-05-13] MEDS ORDERED: HEPARIN NA (PORCINE) 5,000 UNITS/ML 1ML VIAL IVPUSH PRN ×2 (11:40)
[2021-05-13] MEDS ORDERED: HEPARIN SOD,PORK IN 0.45% NACL 25,000 UNITS/500 ML INFUS.BAG IVPB SCH (11:45)
[2021-05-13] MEDS ORDERED: LORazepam 2 MG/ML SDV VIAL IVPUSH SCH (12:45)
[2021-05-13] MEDS: LYTES/YERBA SANTA 60 ML SPRAY MM SCH (12:53)
[2021-05-13] MEDS: LORazepam 2 MG/ML SDV VIAL IVPUSH PRN (13:30)
[2021-05-13] MEDS ORDERED: ACETAMINOPHEN 1000 MG/100 ML VIAL (NON FORMULARY) IVPB ONE (15:23)
[2021-05-13] MEDS ORDERED: ACETAMINOPHEN INJECTION 100 ML IVPB ONE (15:24)
[2021-05-13] MEDS: ERTAPENEM SODIUM 0.5 GM in SODIUM CHLORIDE 50 ML IVPB SCH (15:47)
[2021-05-13] MEDS: DEXTROSE 5% IVPB SCH (16:30)
[2021-05-13] MEDS: ACYCLOVIR IVPB SCH (16:30)
[2021-05-13] MEDS: WATER IVPB SCH (16:30)
[2021-05-13] MEDS: NAFCILLIN - 2 GM in DEXTROSE 5%-WATER - 100 ML IVPB SCH ×2 (18:47→22:32)
[2021-05-13] MEDS ORDERED: SODIUM CHLORIDE 0.9% 500 ML INFUS.BAG IV ONE ×2 (20:34→23:32)
[2021-05-13 21:02] LABS: HEMATOCRIT 21.3 % (35.4-49); MCH 26.5 pg (25.7-33.7); MCHC 31.3 g/dl (32.0-35.9); MEAN CELL VOLUME 84.8 fl (80-96); MEAN PLT VOLUME 9.8 fl (7.5-11.1); PLATELET COUNT 108 10^3/uL (134-434); RBC 2.51 M/mm3 (4.00-5.60); RDW 17.4 % (11.9-15.9); WHITE BLOOD COUNT 21.1 K/mm3 (4.0-10.0)
[2021-05-13 21:06] LABS: HEMOGLOBIN 6.7 GM/dL (11.7-16.9)
[2021-05-13] MEDS ORDERED: SODIUM CHLORIDE 500 ML IV ONE (22:00)
[2021-05-13] MEDS: CHLORHEXIDINE GLUCONATE 4% CLEANSER FOR DECOLONIZATION TP SCH (22:07)
[2021-05-13] MEDS: OLANZapine 5 MG TABLET GT SCH (22:33)
[2021-05-13] MEDS: ACETAMINOPHEN 1000 MG/100 ML VIAL (NON FORMULARY) IVPB PRN (23:38)
[2021-05-14] MEDS: MORPHINE SULFATE 2 MG/ML VIAL IVPUSH SCH ×7 (00:36→23:28)
[2021-05-14] MEDS: NAFCILLIN - 2 GM in DEXTROSE 5%-WATER - 100 ML IVPB SCH ×6 (04:16→22:08)
[2021-05-14] MEDS: LORazepam 2 MG/ML SDV VIAL IVPUSH PRN (04:34)
[2021-05-14] MEDS: METOPROLOL TARTRATE 25 MG TABLET (FP) PO SCH ×2 (05:07→22:07)
[2021-05-14 05:54] LABS: BASO % 0.1 % (0-2.0); EOS % 0.5 % (0-4.5); HEMOGLOBIN 8.2 GM/dL (11.7-16.9); LYMPH % 3.3 % (8-40); MCH 26.8 pg (25.7-33.7); MCHC 31.6 g/dl (32.0-35.9); MEAN CELL VOLUME 84.7 fl (80-96); MEAN PLT VOLUME 9.7 fl (7.5-11.1); MONO % 2.6 % (3.8-10.2); NEUT % 93.5 % (42.8-82.8); PLATELET COUNT 118 10^3/uL (134-434); RBC 3.06 M/mm3 (4.00-5.60); RDW 16.6 % (11.9-15.9); WHITE BLOOD COUNT 24.5 K/mm3 (4.0-10.0)
[2021-05-14] MEDS ORDERED: GENTAMICIN INJECTION 120 MG in DEXTROSE 5%-WATER - 250 ML IVPB ONE (07:00)
[2021-05-14] MEDS: AMINO ACIDS/PROTEIN HYDROLYS 30 ML LIQUID.PKT PO SCH ×2 (08:50→17:57)
[2021-05-14] MEDS: ACETAMINOPHEN 1000 MG/100 ML VIAL (NON FORMULARY) IVPB PRN ×2 (09:00→18:44)
[2021-05-14 09:03] LABS: ANISOCYTOSIS 0; MACROCYTOSIS 0; PLATELET ESTIMATE DECREASED
[2021-05-14] MEDS ORDERED: PT OWN MED DRAWER 7, Y5N ONE ×3 (09:08→11:52)
[2021-05-14] MEDS: FOLIC ACID 1 MG TABLET (FP) GT SCH (09:40)
[2021-05-14] MEDS: FERROUS SULFATE 220 MG/5 ML ELIXIR GT SCH (09:40)
[2021-05-14] MEDS: FAMOTIDINE 40 MG/5 ML ORAL SUSPENSION NGT SCH (09:40)
[2021-05-14] MEDS: HALOPERIDOL 5 MG TABLET GT SCH (09:40)
[2021-05-14] MEDS: MULTIVIT-MINERALS ORAL LIQUID GT SCH (09:40)
[2021-05-14] MEDS: THIAMINE HCL 100 MG TABLET (FP) NGT SCH (09:41)
[2021-05-14] MEDS: SERTRALINE HCL 25 MG TABLET (FP) NR SCH (09:41)
[2021-05-14] MEDS ORDERED: SODIUM CHLORIDE 250 ML IV PRN (10:02)
[2021-05-14] MEDS ORDERED: HALOPERIDOL LACTATE 5 MG/ML IM ONE (11:07)
[2021-05-14] MEDS ORDERED: SODIUM CHLORIDE 500 ML IV STA (11:17)
[2021-05-14] MEDS ORDERED: BISACODYL 10 MG SUPP.RECT PR PRN (11:32)
[2021-05-14] MEDS: LYTES/YERBA SANTA 60 ML SPRAY MM SCH (11:58)
[2021-05-14] MEDS: COLLAGENASE CLOSTRIDIUM HIST. 30 GRAMS TUBE TP SCH (11:58)
[2021-05-14] MEDS ORDERED: HEPARIN SOD,PORK IN 0.45% NACL 25,000 UNITS/500 ML INFUS.BAG IVPB SCH (12:04)
[2021-05-14] MEDS: EPOETIN ALFA-EPBX 10,000 UNIT/ML VIAL IVPUSH ONE ×2 (12:05→12:40)
[2021-05-14] MEDS ORDERED: HEPARIN NA (PORCINE) 5,000 UNITS/ML 1ML VIAL IVPUSH PRN (12:19)
[2021-05-14] MEDS: HEPARIN SOD,PORK IN 0.45% NACL 25,000 UNITS/500 ML INFUS.BAG IVPB SCH (12:38)
[2021-05-14 12:48] LABS: PH,URINE 5.5 (5.0-8.0); URINE APPEARANCE Cloudy; URINE BILIRUBIN 1+ (NEGATIVE); URINE COLOR Other; URINE GLUCOSE (UA) Negative (NEGATIVE); URINE KETONE Trace (NEGATIVE); URINE LEUK ESTERASE Trace (NEGATIVE); URINE NITRITE Negative (NEGATIVE); URINE PROTEIN 2+ (NEGATIVE); URINE UROBILINOGEN 0.2 mg/dL (0.2-1.0)
[2021-05-14] MEDS: DEXTROSE 5% IVPB SCH (12:56)
[2021-05-14] MEDS: WATER IVPB SCH (12:56)
[2021-05-14] MEDS: ACYCLOVIR IVPB SCH (12:56)
[2021-05-14 15:19] LABS: URINE RBC LARGE /hpf (0-4)
[2021-05-14] MEDS ORDERED: DEXTROSE 5%-WATER 100 ML IVPB ONE (15:23)
[2021-05-14] MEDS ORDERED: MEROPENEM 500 MG VIAL (RESTRICTED TO ID) IVPB ONE (15:23)
[2021-05-14] MEDS: MEROPENEM 500 MG in DEXTROSE 5%-WATER 100 ML IVPB SCH (15:24)
[2021-05-14] MEDS: CHLORHEXIDINE GLUCONATE 4% CLEANSER FOR DECOLONIZATION TP SCH (22:00)
[2021-05-14] MEDS: BACITRACIN 15 GM TUBE TOPICAL OINTMENT TP SCH (22:01)
[2021-05-14] MEDS: OLANZapine 5 MG TABLET GT SCH (22:29)
[2021-05-14] MEDS: HEPARIN NA (PORCINE) 5,000 UNITS/ML 1ML VIAL IVPUSH PRN (22:35)
[2021-05-15 00:36] LABS: BASO % 0.1 % (0-2.0); EOS % 0.8 % (0-4.5); HEMATOCRIT 23.8 % (35.4-49); HEMOGLOBIN 7.7 GM/dL (11.7-16.9); LYMPH % 3.3 % (8-40); MCH 26.9 pg (25.7-33.7); MCHC 32.2 g/dl (32.0-35.9); MEAN CELL VOLUME 83.7 fl (80-96); MEAN PLT VOLUME 8.9 fl (7.5-11.1); NEUT % 92.8 % (42.8-82.8); PLATELET COUNT 138 10^3/uL (134-434); RBC 2.85 M/mm3 (4.00-5.60); RDW 16.3 % (11.9-15.9); WHITE BLOOD COUNT 28.1 K/mm3 (4.0-10.0)
[2021-05-15] MEDS: NAFCILLIN - 2 GM in DEXTROSE 5%-WATER - 100 ML IVPB SCH ×6 (01:52→21:27)
[2021-05-15] MEDS: MORPHINE SULFATE 2 MG/ML VIAL IVPUSH SCH ×5 (03:30→20:04)
[2021-05-15 04:28] LABS: ANISOCYTOSIS 3+; MACROCYTOSIS 0; PLATELET ESTIMATE DECREASED; ROULEAU 1+
[2021-05-15] MEDS: METOPROLOL TARTRATE 25 MG TABLET (FP) PO SCH ×3 (05:08→21:29)
[2021-05-15] MEDS: ACETAMINOPHEN 1000 MG/100 ML VIAL (NON FORMULARY) IVPB PRN ×2 (06:55→14:52)
[2021-05-15 07:26] LABS: EOS % 0.9 % (0-4.5); HEMATOCRIT 24.2 % (35.4-49); HEMOGLOBIN 7.6 GM/dL (11.7-16.9); LYMPH % 3.6 % (8-40); MCH 26.8 pg (25.7-33.7); MCHC 31.5 g/dl (32.0-35.9); MEAN PLT VOLUME 9.3 fl (7.5-11.1); NEUT % 92.5 % (42.8-82.8); PLATELET COUNT 150 10^3/uL (134-434); RBC 2.84 M/mm3 (4.00-5.60); RDW 16.9 % (11.9-15.9); WHITE BLOOD COUNT 26.6 K/mm3 (4.0-10.0)
[2021-05-15 07:50] LABS: ALBUMIN 1.8 g/dl (3.4-5.0); CALCIUM 7.6 mg/dL (8.5-10.1)
[2021-05-15 07:53] LABS: CREATININE 3.3 mg/dL (0.55-1.3)
[2021-05-15 07:55] LABS: BILIRUBIN,TOTAL 3.1 mg/dL (0.2-1); TOT PROT 5.4 g/dl (6.4-8.2)
[2021-05-15 07:58] LABS: BLOOD UREA NITROGEN 57.6 mg/dL (7-18)
[2021-05-15] MEDS ORDERED: PT OWN MED DRAWER 7, Y5N ONE ×5 (08:50→21:17)
[2021-05-15] MEDS: AMINO ACIDS/PROTEIN HYDROLYS 30 ML LIQUID.PKT PO SCH ×2 (08:55→16:55)
[2021-05-15] MEDS: HEPARIN NA (PORCINE) 5,000 UNITS/ML 1ML VIAL IVPUSH PRN ×2 (08:55→22:30)
[2021-05-15] MEDS: MULTIVIT-MINERALS ORAL LIQUID GT SCH (09:49)
[2021-05-15] MEDS: THIAMINE HCL 100 MG TABLET (FP) NGT SCH (09:51)
[2021-05-15] MEDS: FOLIC ACID 1 MG TABLET (FP) GT SCH (09:51)
[2021-05-15] MEDS: LYTES/YERBA SANTA 60 ML SPRAY MM SCH (09:53)
[2021-05-15] MEDS: COLLAGENASE CLOSTRIDIUM HIST. 30 GRAMS TUBE TP SCH (10:01)
[2021-05-15] MEDS: FERROUS SULFATE 220 MG/5 ML ELIXIR GT SCH (10:01)
[2021-05-15 10:49] LABS: ANISOCYTOSIS 0; MACROCYTOSIS 1+; OVALOCYTE 1+; PLATELET ESTIMATE DECREASED
[2021-05-15] MEDS: DEXTROSE 5% IVPB SCH (11:59)
[2021-05-15] MEDS: WATER IVPB SCH (11:59)
[2021-05-15] MEDS: ACYCLOVIR IVPB SCH (11:59)
[2021-05-15] MEDS: SERTRALINE HCL 25 MG TABLET (FP) NR SCH (12:05)
[2021-05-15] MEDS: BACITRACIN 15 GM TUBE TOPICAL OINTMENT TP SCH ×2 (12:06→21:28)
[2021-05-15] MEDS ORDERED: SODIUM CHLORIDE 250 ML IV PRN (13:13)
[2021-05-15] MEDS ORDERED: MEROPENEM 500 MG VIAL (RESTRICTED TO ID) IVPB ONE (14:49)
[2021-05-15] MEDS ORDERED: DEXTROSE 5%-WATER 100 ML IVPB ONE (14:49)
[2021-05-15] MEDS: MEROPENEM 500 MG in DEXTROSE 5%-WATER 100 ML IVPB SCH (14:52)
[2021-05-15] MEDS ORDERED: MORPHINE SULFATE 2 MG/ML VIAL IVPUSH ONE (16:00)
[2021-05-15] MEDS ORDERED: morphine SULFATE 4 MG/ML VIAL ONE (16:37)
[2021-05-15] MEDS: HEPARIN SOD,PORK IN 0.45% NACL 25,000 UNITS/500 ML INFUS.BAG IVPB SCH (16:45)
[2021-05-15] MEDS ORDERED: LACTATED RINGERS SOLUTION 1000 ML INFUS.BAG IV ONE (20:30)
[2021-05-15] MEDS: CHLORHEXIDINE GLUCONATE 4% CLEANSER FOR DECOLONIZATION TP SCH (21:28)
[2021-05-15] MEDS: OLANZapine 5 MG TABLET GT SCH (22:20)
[2021-05-16] MEDS: MORPHINE SULFATE 2 MG/ML VIAL IVPUSH SCH ×6 (00:29→22:04)
[2021-05-16] MEDS: NAFCILLIN - 2 GM in DEXTROSE 5%-WATER - 100 ML IVPB SCH ×6 (01:28→22:12)
[2021-05-16] MEDS: METOPROLOL TARTRATE 25 MG TABLET (FP) PO SCH ×3 (05:23→22:04)
[2021-05-16] MEDS: ACETAMINOPHEN 1000 MG/100 ML VIAL (NON FORMULARY) IVPB PRN ×2 (06:40→23:25)
[2021-05-16 07:05] LABS: MCH 26.4 pg (25.7-33.7); MCHC 30.6 g/dl (32.0-35.9); MEAN CELL VOLUME 86.2 fl (80-96); MEAN PLT VOLUME 9.2 fl (7.5-11.1); PLATELET COUNT 220 10^3/uL (134-434); RBC 2.66 M/mm3 (4.00-5.60); RDW 16.6 % (11.9-15.9); WHITE BLOOD COUNT 26.7 K/mm3 (4.0-10.0)
[2021-05-16 07:15] LABS: CALCIUM 7.6 mg/dL (8.5-10.1)
[2021-05-16 07:16] LABS: ALBUMIN 1.6 g/dl (3.4-5.0); BLOOD UREA NITROGEN 64.2 mg/dL (7-18); MAGNESIUM 2.1 mg/dL (1.8-2.4)
[2021-05-16 07:19] LABS: CREATININE 3.9 mg/dL (0.55-1.3); PHOSPHOROUS 7.9 mg/dL (2.5-4.9)
[2021-05-16 07:21] LABS: BILIRUBIN,TOTAL 3.6 mg/dL (0.2-1); TOT PROT 5.2 g/dl (6.4-8.2)
[2021-05-16] MEDS ORDERED: PT OWN MED DRAWER 7, Y5N ONE ×4 (09:38→22:10)
[2021-05-16] MEDS: AMINO ACIDS/PROTEIN HYDROLYS 30 ML LIQUID.PKT PO SCH ×2 (09:41→17:29)
[2021-05-16] MEDS: FOLIC ACID 1 MG TABLET (FP) GT SCH (09:41)
[2021-05-16] MEDS: SERTRALINE HCL 25 MG TABLET (FP) NR SCH (09:41)
[2021-05-16] MEDS: HEPARIN NA (PORCINE) 5,000 UNITS/ML 1ML VIAL IVPUSH PRN (09:41)
[2021-05-16] MEDS: MULTIVIT-MINERALS ORAL LIQUID GT SCH (09:42)
[2021-05-16] MEDS: HALOPERIDOL 5 MG TABLET GT SCH (09:42)
[2021-05-16] MEDS: THIAMINE HCL 100 MG TABLET (FP) NGT SCH (09:42)
[2021-05-16] MEDS: BACITRACIN 15 GM TUBE TOPICAL OINTMENT TP SCH ×2 (09:43→22:07)
[2021-05-16] MEDS: LYTES/YERBA SANTA 60 ML SPRAY MM SCH (09:43)
[2021-05-16] MEDS: COLLAGENASE CLOSTRIDIUM HIST. 30 GRAMS TUBE TP SCH (09:44)
[2021-05-16] MEDS: DEXTROSE 5% IVPB SCH (12:44)
[2021-05-16] MEDS: WATER IVPB SCH (12:44)
[2021-05-16] MEDS: ACYCLOVIR IVPB SCH (12:44)
[2021-05-16] MEDS ORDERED: HYDROmorphone HCl 2 MG/ML VIAL ONE (14:20)
[2021-05-16] MEDS ORDERED: HYDROmorphone HCl 2 MG/ML VIAL IVPUSH ONE (14:30)
[2021-05-16] MEDS ORDERED: MEROPENEM 500 MG VIAL (RESTRICTED TO ID) IVPB ONE (15:34)
[2021-05-16] MEDS ORDERED: DEXTROSE 5%-WATER 100 ML IVPB ONE (15:34)
[2021-05-16] MEDS: HEPARIN SOD,PORK IN 0.45% NACL 25,000 UNITS/500 ML INFUS.BAG IVPB SCH (16:15)
[2021-05-16] MEDS: MEROPENEM 500 MG in DEXTROSE 5%-WATER 100 ML IVPB SCH (16:15)
[2021-05-16] MEDS: FERROUS SULFATE 220 MG/5 ML ELIXIR GT SCH (17:28)
[2021-05-16] MEDS: FAMOTIDINE 40 MG/5 ML ORAL SUSPENSION NGT SCH (17:29)
[2021-05-16] MEDS: CHLORHEXIDINE GLUCONATE 4% CLEANSER FOR DECOLONIZATION TP SCH (22:07)
[2021-05-16] MEDS: OLANZapine 5 MG TABLET GT SCH (22:12)
[2021-05-17] MEDS: MORPHINE SULFATE 2 MG/ML VIAL IVPUSH SCH ×7 (00:01→23:28)
[2021-05-17] MEDS ORDERED: LORazepam 2 MG/ML SDV VIAL IVPUSH ONE (00:04)
[2021-05-17] MEDS ORDERED: HALOPERIDOL DECANOATE 100 MG/ML IM ONE (00:05)
[2021-05-17] MEDS ORDERED: HALOPERIDOL 5 MG TABLET PO ONE (00:12)
[2021-05-17] MEDS ORDERED: PT OWN MED DRAWER 7, Y5N ONE ×6 (02:09→20:13)
[2021-05-17] MEDS: NAFCILLIN - 2 GM in DEXTROSE 5%-WATER - 100 ML IVPB SCH ×6 (02:14→21:00)
[2021-05-17] MEDS: METOPROLOL TARTRATE 25 MG TABLET (FP) PO SCH ×2 (05:46→19:09)
[2021-05-17 07:13] LABS: HEMATOCRIT 24.7 % (35.4-49); HEMOGLOBIN 7.9 GM/dL (11.7-16.9); MCH 27.5 pg (25.7-33.7); MCHC 32.1 g/dl (32.0-35.9); MEAN CELL VOLUME 85.5 fl (80-96); MEAN PLT VOLUME 8.8 fl (7.5-11.1); PLATELET COUNT 249 10^3/uL (134-434); RBC 2.89 M/mm3 (4.00-5.60); RDW 16.6 % (11.9-15.9); WHITE BLOOD COUNT 25.7 K/mm3 (4.0-10.0)
[2021-05-17 07:49] LABS: ALBUMIN 1.4 g/dl (3.4-5.0)
[2021-05-17 07:50] LABS: BLOOD UREA NITROGEN 53.6 mg/dL (7-18)
[2021-05-17 07:53] LABS: CREATININE 3.5 mg/dL (0.55-1.3)
[2021-05-17 07:54] LABS: BILIRUBIN,TOTAL 2.8 mg/dL (0.2-1)
[2021-05-17] MEDS: AMINO ACIDS/PROTEIN HYDROLYS 30 ML LIQUID.PKT PO SCH (08:33)
[2021-05-17] MEDS: ACETAMINOPHEN 1000 MG/100 ML VIAL (NON FORMULARY) IVPB PRN ×2 (08:33→18:41)
[2021-05-17] MEDS: HEPARIN NA (PORCINE) 5,000 UNITS/ML 1ML VIAL IVPUSH PRN (08:36)
[2021-05-17] MEDS: THIAMINE HCL 100 MG TABLET (FP) NGT SCH (09:25)
[2021-05-17] MEDS: FERROUS SULFATE 220 MG/5 ML ELIXIR GT SCH (09:25)
[2021-05-17] MEDS: SERTRALINE HCL 25 MG TABLET (FP) NR SCH (09:25)
[2021-05-17] MEDS: MULTIVIT-MINERALS ORAL LIQUID GT SCH (09:28)
[2021-05-17] MEDS: BACITRACIN 15 GM TUBE TOPICAL OINTMENT TP SCH ×2 (09:28→21:09)
[2021-05-17] MEDS: LYTES/YERBA SANTA 60 ML SPRAY MM SCH (09:29)
[2021-05-17] MEDS: FOLIC ACID 1 MG TABLET (FP) GT SCH (09:32)
[2021-05-17] MEDS: COLLAGENASE CLOSTRIDIUM HIST. 30 GRAMS TUBE TP SCH (10:00)
[2021-05-17] MEDS: ACYCLOVIR IVPB SCH (13:10)
[2021-05-17] MEDS: WATER IVPB SCH (13:10)
[2021-05-17] MEDS: DEXTROSE 5% IVPB SCH (13:10)
[2021-05-17] MEDS ORDERED: HYDROmorphone HCl 2 MG/ML VIAL IVPUSH ONE (13:29)
[2021-05-17] MEDS: MIDODRINE HCL 5 MG TABLET NGT SCH ×2 (15:25→18:41)
[2021-05-17] MEDS ORDERED: LACTATED RINGERS SOLUTION 1000 ML INFUS.BAG IV ONE (15:52)
[2021-05-17] MEDS: HEPARIN SOD,PORK IN 0.45% NACL 25,000 UNITS/500 ML INFUS.BAG IVPB SCH (17:16)
[2021-05-17] MEDS: AMINO ACIDS/PROTEIN HYDROLYS 30 ML LIQUID.PKT NGT SCH (18:41)
[2021-05-17] MEDS: CHLORHEXIDINE GLUCONATE 4% CLEANSER FOR DECOLONIZATION TP SCH (21:09)
[2021-05-17] MEDS: METOPROLOL TARTRATE 25 MG TABLET (FP) NGT SCH (21:09)
[2021-05-17] MEDS ORDERED: SODIUM CHLORIDE 500 ML IV STA (21:30)
[2021-05-17] MEDS: OLANZapine 5 MG TABLET GT SCH (22:13)
[2021-05-17 23:03] LABS: INR 1.19 (0.83-1.09); PROTHROMBIN TIME (PATIENT) 14.6 SEC (9.7-13.0)
[2021-05-17 23:06] LABS: ACTIVATED PTT 38.3 SECONDS (25.2-36.5)
[2021-05-17 23:30] LABS: BASO % 0.3 % (0-2.0); EOS % 1.3 % (0-4.5); HEMATOCRIT 25.2 % (35.4-49); HEMOGLOBIN 7.9 GM/dL (11.7-16.9); LYMPH % 4.8 % (8-40); MCH 26.8 pg (25.7-33.7); MCHC 31.4 g/dl (32.0-35.9); MEAN CELL VOLUME 85.4 fl (80-96); MEAN PLT VOLUME 7.8 fl (7.5-11.1); MONO % 6.2 % (3.8-10.2); NEUT % 87.4 % (42.8-82.8); PLATELET COUNT 255 10^3/uL (134-434); RBC 2.95 M/mm3 (4.00-5.60); RDW 16.8 % (11.9-15.9); WHITE BLOOD COUNT 26.3 K/mm3 (4.0-10.0)
[2021-05-18 00:04] LABS: ANISOCYTOSIS 1+; MACROCYTOSIS 0; PLATELET ESTIMATE NORMAL
[2021-05-18] MEDS ORDERED: SODIUM CHLORIDE 500 ML IV STA (00:39)
[2021-05-18] MEDS: HEPARIN NA (PORCINE) 5,000 UNITS/ML 1ML VIAL IVPUSH PRN ×2 (00:55→10:40)
[2021-05-18] MEDS ORDERED: PT OWN MED DRAWER 7, Y5N ONE ×4 (01:18→16:53)
[2021-05-18] MEDS ORDERED: LACTATED RINGERS SOLUTION 1000 ML INFUS.BAG IV ONE (01:29)
[2021-05-18] MEDS: NAFCILLIN - 2 GM in DEXTROSE 5%-WATER - 100 ML IVPB SCH ×6 (01:51→21:59)
[2021-05-18] MEDS ORDERED: LORazepam 2 MG/ML SDV VIAL IM ONE (02:50)
[2021-05-18] MEDS ORDERED: LORazepam 2 MG/ML SDV VIAL IVPUSH ONE ×2 (02:53→11:42)
[2021-05-18 03:29] LABS: BASO % 0.3 % (0-2.0); EOS % 1.4 % (0-4.5); HEMATOCRIT 29.8 % (35.4-49); HEMOGLOBIN 9.4 GM/dL (11.7-16.9); MCH 26.8 pg (25.7-33.7); MCHC 31.4 g/dl (32.0-35.9); MEAN CELL VOLUME 85.4 fl (80-96); MEAN PLT VOLUME 8.3 fl (7.5-11.1); MONO % 5.3 % (3.8-10.2); PLATELET COUNT 320 10^3/uL (134-434); RBC 3.49 M/mm3 (4.00-5.60); RDW 17.2 % (11.9-15.9)
[2021-05-18] MEDS ORDERED: HALOPERIDOL LACTATE 5 MG/ML IM ONE (03:33)
[2021-05-18] MEDS: MORPHINE SULFATE 2 MG/ML VIAL IVPUSH SCH ×6 (03:44→21:08)
[2021-05-18 03:50] LABS: BLOOD UREA NITROGEN 61.6 mg/dL (7-18); CALCIUM 8.1 mg/dL (8.5-10.1)
[2021-05-18] MEDS: ACETAMINOPHEN 1000 MG/100 ML VIAL (NON FORMULARY) IVPB PRN (03:52)
[2021-05-18] MEDS: METOPROLOL TARTRATE 25 MG TABLET (FP) NGT SCH (05:26)
[2021-05-18] MEDS: VASOPRESSIN 40 UNITS in SODIUM CHLORIDE 98 ML IVPB SCH ×2 (05:35→19:00)
[2021-05-18 07:21] LABS: HEMATOCRIT 24.8 % (35.4-49); HEMOGLOBIN 7.7 GM/dL (11.7-16.9); MCH 26.9 pg (25.7-33.7); MCHC 31.1 g/dl (32.0-35.9); MEAN CELL VOLUME 86.6 fl (80-96); MEAN PLT VOLUME 8.7 fl (7.5-11.1); PLATELET COUNT 258 10^3/uL (134-434); RBC 2.87 M/mm3 (4.00-5.60); RDW 17.2 % (11.9-15.9)
[2021-05-18 07:39] LABS: ALBUMIN 1.3 g/dl (3.4-5.0); BLOOD UREA NITROGEN 60.8 mg/dL (7-18); CALCIUM 7.6 mg/dL (8.5-10.1)
[2021-05-18 07:40] LABS: MAGNESIUM 1.9 mg/dL (1.8-2.4)
[2021-05-18 07:42] LABS: PHOSPHOROUS 7.1 mg/dL (2.5-4.9)
[2021-05-18 07:45] LABS: BILIRUBIN,TOTAL 3.1 mg/dL (0.2-1); TOT PROT 4.8 g/dl (6.4-8.2)
[2021-05-18] MEDS: ACETAMINOPHEN 650 MG/20.3 ML ORAL SOLUTION (CUPS) GT PRN (09:42)
[2021-05-18] MEDS: MIDODRINE HCL 5 MG TABLET NGT SCH ×3 (09:43→17:21)
[2021-05-18] MEDS: SERTRALINE HCL 25 MG TABLET (FP) NR SCH (09:43)
[2021-05-18] MEDS: AMINO ACIDS/PROTEIN HYDROLYS 30 ML LIQUID.PKT NGT SCH ×2 (09:43→17:22)
[2021-05-18] MEDS: THIAMINE HCL 100 MG TABLET (FP) NGT SCH (09:43)
[2021-05-18] MEDS: BACITRACIN 15 GM TUBE TOPICAL OINTMENT TP SCH ×2 (09:43→21:59)
[2021-05-18] MEDS: LYTES/YERBA SANTA 60 ML SPRAY MM SCH (09:44)
[2021-05-18] MEDS: MULTIVIT-MINERALS ORAL LIQUID GT SCH (09:44)
[2021-05-18] MEDS: FOLIC ACID 1 MG TABLET (FP) GT SCH (09:44)
[2021-05-18] MEDS ORDERED: POTASSIUM CHLORIDE ORAL LIQUID 20 MEQ/15 ML PO ONE (09:45)
[2021-05-18] MEDS: FLUCONAZOLE 100 MG/NS 50 ML IVPB SCH (10:21)
[2021-05-18] MEDS ORDERED: GENTAMICIN INJECTION 120 MG in DEXTROSE 5%-WATER - 100 ML IVPB SCH (10:30)
[2021-05-18] MEDS: COLLAGENASE CLOSTRIDIUM HIST. 30 GRAMS TUBE TP SCH (10:44)
[2021-05-18] MEDS: FAMOTIDINE 40 MG/5 ML ORAL SUSPENSION NGT SCH (11:40)
[2021-05-18] MEDS: FERROUS SULFATE 220 MG/5 ML ELIXIR GT SCH (11:40)
[2021-05-18] MEDS ORDERED: LORazepam 2 MG/ML SDV VIAL ONE (11:45)
[2021-05-18] MEDS ORDERED: LORazepam 2 MG/ML SDV VIAL IVPUSH PRN (12:30)
[2021-05-18 12:54] LABS: BILIRUBIN,DIRECT 1.5 mg/dL (0.0-0.2)
[2021-05-18] MEDS: NYSTATIN 100,000 UNIT/GM TOPICAL CREAM 15 GM TUBE TP SCH ×2 (14:08→17:22)
[2021-05-18] MEDS: HEPARIN SOD,PORK IN 0.45% NACL 25,000 UNITS/500 ML INFUS.BAG IVPB SCH (14:46)
[2021-05-18] MEDS: CHLORHEXIDINE GLUCONATE 4% CLEANSER FOR DECOLONIZATION TP SCH (21:59)
[2021-05-18] MEDS: OLANZapine 5 MG TABLET GT SCH (22:25)
[2021-05-19] MEDS ORDERED: PT OWN MED DRAWER 7, Y5N ONE ×6 (00:53→21:23)
[2021-05-19] MEDS: MORPHINE SULFATE 2 MG/ML VIAL IVPUSH SCH ×4 (00:54→11:30)
[2021-05-19] MEDS: NYSTATIN 100,000 UNIT/GM TOPICAL CREAM 15 GM TUBE TP SCH ×4 (00:54→17:44)
[2021-05-19] MEDS: NAFCILLIN - 2 GM in DEXTROSE 5%-WATER - 100 ML IVPB SCH ×6 (01:22→22:41)
[2021-05-19] MEDS ORDERED: LORazepam 2 MG/ML SDV VIAL IVPUSH ONE (06:22)
[2021-05-19 06:47] LABS: HEMATOCRIT 24.1 % (35.4-49); HEMOGLOBIN 7.5 GM/dL (11.7-16.9); MCHC 31.2 g/dl (32.0-35.9); MEAN CELL VOLUME 86.5 fl (80-96); MEAN PLT VOLUME 8.5 fl (7.5-11.1); PLATELET COUNT 287 10^3/uL (134-434); RBC 2.78 M/mm3 (4.00-5.60); RDW 17.2 % (11.9-15.9)
[2021-05-19 06:59] LABS: BLOOD UREA NITROGEN 79.5 mg/dL (7-18); CALCIUM 7.9 mg/dL (8.5-10.1)
[2021-05-19 07:00] LABS: ALBUMIN 1.3 g/dl (3.4-5.0)
[2021-05-19 07:03] LABS: CREATININE 4.3 mg/dL (0.55-1.3)
[2021-05-19 07:04] LABS: BILIRUBIN,TOTAL 2.5 mg/dL (0.2-1); TOT PROT 5.4 g/dl (6.4-8.2)
[2021-05-19 07:43] LABS: PHOSPHOROUS 8.5 mg/dL (2.5-4.9)
[2021-05-19] MEDS: AMINO ACIDS/PROTEIN HYDROLYS 30 ML LIQUID.PKT NGT SCH ×2 (08:05→17:44)
[2021-05-19] MEDS: BACITRACIN 15 GM TUBE TOPICAL OINTMENT TP SCH ×2 (09:27→22:24)
[2021-05-19] MEDS: FLUCONAZOLE 100 MG/NS 50 ML IVPB SCH (09:28)
[2021-05-19] MEDS: MULTIVIT-MINERALS ORAL LIQUID GT SCH (09:28)
[2021-05-19] MEDS: FERROUS SULFATE 220 MG/5 ML ELIXIR GT SCH (09:29)
[2021-05-19] MEDS: FOLIC ACID 1 MG TABLET (FP) GT SCH (09:29)
[2021-05-19] MEDS: MIDODRINE HCL 5 MG TABLET NGT SCH ×3 (09:31→17:45)
[2021-05-19] MEDS: COLLAGENASE CLOSTRIDIUM HIST. 30 GRAMS TUBE TP SCH (09:31)
[2021-05-19] MEDS: THIAMINE HCL 100 MG TABLET (FP) NGT SCH (09:32)
[2021-05-19] MEDS: SERTRALINE HCL 25 MG TABLET (FP) NR SCH (09:32)
[2021-05-19] MEDS: ACETAMINOPHEN 1000 MG/100 ML VIAL (NON FORMULARY) IVPB PRN (09:34)
[2021-05-19] MEDS: LYTES/YERBA SANTA 60 ML SPRAY MM SCH (09:50)
[2021-05-19] MEDS: HALOPERIDOL 5 MG TABLET GT SCH (10:00)
[2021-05-19] MEDS ORDERED: SODIUM CHLORIDE 250 ML IV PRN (11:00)
[2021-05-19] MEDS ORDERED: MORPHINE SULFATE 2 MG/ML VIAL IVPUSH PRN (12:17)
[2021-05-19] MEDS: HYDROmorphone HCl 2 MG/ML VIAL IVPUSH PRN ×2 (12:24→19:41)
[2021-05-19] MEDS: HEPARIN SOD,PORK IN 0.45% NACL 25,000 UNITS/500 ML INFUS.BAG IVPB SCH ×2 (12:30→14:00)
[2021-05-19] MEDS ORDERED: HYDROmorphone HCl 2 MG/ML VIAL IVPUSH ONE (13:42)
[2021-05-19] MEDS: VASOPRESSIN 40 UNITS in SODIUM CHLORIDE 98 ML IVPB SCH ×2 (15:09→22:50)
[2021-05-19] MEDS ORDERED: EPOETIN ALFA-EPBX 10,000 UNIT/ML VIAL SQ ONE (16:00)
[2021-05-19] MEDS: ACETAMINOPHEN 650 MG/20.3 ML ORAL SOLUTION (CUPS) GT PRN (19:39)
[2021-05-19] MEDS: CHLORHEXIDINE GLUCONATE 4% CLEANSER FOR DECOLONIZATION TP SCH (22:25)
[2021-05-19] MEDS: OLANZapine 5 MG TABLET GT SCH (22:26)
[2021-05-20] MEDS: NYSTATIN 100,000 UNIT/GM TOPICAL CREAM 15 GM TUBE TP SCH ×4 (00:15→17:38)
[2021-05-20] MEDS: NAFCILLIN - 2 GM in DEXTROSE 5%-WATER - 100 ML IVPB SCH ×6 (01:04→21:46)
[2021-05-20] MEDS: HYDROmorphone HCl 2 MG/ML VIAL IVPUSH PRN (01:05)
[2021-05-20 03:15] LABS: ARTERIAL BLD GAS O2 SATURATION 96.8 % (95-98); ARTERIAL BLOOD GAS BASE EXCESS 4.2 mmol/L (-2-2); ARTERIAL BLOOD GAS PO2 98.8 mmHg (80-100); ARTERIAL BLOOD GAS pH 7.322 (7.350-7.450)
[2021-05-20 03:30] LABS: ALLENS TEST POSITIVE; PT'S TEMP 99.8
[2021-05-20] MEDS ORDERED: PT OWN MED DRAWER 7, Y5N ONE ×6 (03:37→23:02)
[2021-05-20] MEDS: VASOPRESSIN 40 UNITS in SODIUM CHLORIDE 98 ML IVPB SCH ×3 (04:43→21:49)
[2021-05-20] MEDS ORDERED: HALOPERIDOL LACTATE 5 MG/ML IM ONE (04:49)
[2021-05-20] MEDS ORDERED: LORazepam 2 MG/ML SDV VIAL IVPUSH ONE (04:49)
[2021-05-20 05:31] LABS: BASO % 0.3 % (0-2.0); EOS % 0.9 % (0-4.5); HEMATOCRIT 21.2 % (35.4-49); LYMPH % 5.6 % (8-40); MCH 27.2 pg (25.7-33.7); MCHC 31.1 g/dl (32.0-35.9); MEAN CELL VOLUME 87.6 fl (80-96); MEAN PLT VOLUME 8.2 fl (7.5-11.1); MONO % 6.2 % (3.8-10.2); PLATELET COUNT 203 10^3/uL (134-434); RBC 2.42 M/mm3 (4.00-5.60); RDW 17.4 % (11.9-15.9); WHITE BLOOD COUNT 17.8 K/mm3 (4.0-10.0)
[2021-05-20 05:32] LABS: INR 1.09 (0.83-1.09); PROTHROMBIN TIME (PATIENT) 13.4 SEC (9.7-13.0)
[2021-05-20 05:33] LABS: HEMOGLOBIN 6.6 GM/dL (11.7-16.9)
[2021-05-20 05:35] LABS: ACTIVATED PTT 33.9 SECONDS (25.2-36.5)
[2021-05-20] MEDS: ACETAMINOPHEN 650 MG/20.3 ML ORAL SOLUTION (CUPS) GT PRN (07:13)
[2021-05-20 07:50] LABS: CHLORIDE 111 mmol/L (98-107); SODIUM 145 mmol/L (136-145)
[2021-05-20 07:56] LABS: ALBUMIN 1.4 g/dl (3.4-5.0); CALCIUM 7.2 mg/dL (8.5-10.1); CO2 26 mmol/L (21-32); GLUCOSE,RANDOM 89 mg/dL (74-106); MAGNESIUM 1.7 mg/dL (1.8-2.4)
[2021-05-20 07:59] LABS: BILIRUBIN,TOTAL 2.4 mg/dL (0.2-1); CREATININE 2.6 mg/dL (0.55-1.3); SGOT/AST 20 U/L (15-37); SGPT/ALT 7 U/L (13-61)
[2021-05-20] MEDS: AMINO ACIDS/PROTEIN HYDROLYS 30 ML LIQUID.PKT NGT SCH ×2 (08:00→16:42)
[2021-05-20 08:01] LABS: PHOSPHOROUS 6.3 mg/dL (2.5-4.9); TOT PROT 4.9 g/dl (6.4-8.2)
[2021-05-20 08:03] LABS: ALK PHOS 252 U/L (45-117)
[2021-05-20 08:23] LABS: ANION GAP 8 MMOL/L (8-16); BLOOD UREA NITROGEN 43.8 mg/dL (7-18)
[2021-05-20] MEDS ORDERED: POTASSIUM CHLORIDE ORAL LIQUID 20 MEQ/15 ML GT ONE (08:45)
[2021-05-20] MEDS ORDERED: MAGNESIUM SULF 50% (8.12 MEQ/2 ML-1 GM VIAL) IVPB ONE (08:45)
[2021-05-20] MEDS: MULTIVIT-MINERALS ORAL LIQUID GT SCH (09:04)
[2021-05-20] MEDS: FERROUS SULFATE 220 MG/5 ML ELIXIR GT SCH (09:05)
[2021-05-20] MEDS: SERTRALINE HCL 25 MG TABLET (FP) NR SCH (09:05)
[2021-05-20] MEDS: MIDODRINE HCL 5 MG TABLET NGT SCH ×3 (09:05→18:00)
[2021-05-20] MEDS: FOLIC ACID 1 MG TABLET (FP) GT SCH (09:05)
[2021-05-20] MEDS: FAMOTIDINE 40 MG/5 ML ORAL SUSPENSION NGT SCH (09:05)
[2021-05-20] MEDS: THIAMINE HCL 100 MG TABLET (FP) NGT SCH (09:05)
[2021-05-20] MEDS: KCL 10 MEQ IVPB 10 MEQ/100 ML INFUS.BAG IVPB SCH ×6 (09:13→19:50)
[2021-05-20] MEDS: COLLAGENASE CLOSTRIDIUM HIST. 30 GRAMS TUBE TP SCH (09:19)
[2021-05-20] MEDS: BACITRACIN 15 GM TUBE TOPICAL OINTMENT TP SCH ×2 (09:25→22:02)
[2021-05-20] MEDS: LYTES/YERBA SANTA 60 ML SPRAY MM SCH (09:37)
[2021-05-20] MEDS ORDERED: RAPID SEQUENCE INTUBATION KIT NR ONE (09:44)
[2021-05-20] MEDS ORDERED: MIDAZOLAM HCL 5 MG/1 ML Single Dose Vial ONE (09:48)
[2021-05-20] MEDS ORDERED: PROPOFOL 1,000,000 MCG/100 ML VIAL ONE (10:38)
[2021-05-20] MEDS: FLUCONAZOLE 100 MG/NS 50 ML IVPB SCH (10:54)
[2021-05-20] MEDS: PROPOFOL 1,000,000 MCG/100 ML VIAL IVPB SCH ×2 (10:54→17:41)
[2021-05-20] MEDS ORDERED: SUCCINYLCHOLINE CHLORIDE 200 MG/10 ML VIAL IVPUSH ONE (11:52)
[2021-05-20] MEDS ORDERED: PROPOFOL 200 MG/20 ML VIAL IVPUSH ONE (11:52)
[2021-05-20] MEDS ORDERED: ETOMIDATE 20 MG/10 ML AMPUL IVPUSH ONE (11:53)
[2021-05-20] MEDS: FENTANYL NS IVPB 500 MCG/100 ML BAG IVPB SCH ×3 (12:08→22:25)
[2021-05-20 12:25] LABS: ARTERIAL BLD GAS O2 SATURATION 88.2 % (95-98); ARTERIAL BLOOD GAS BASE EXCESS -1.5 mmol/L (-2-2); ARTERIAL BLOOD GAS PO2 58.6 mmHg (80-100); ARTERIAL BLOOD GAS pH 7.323 (7.350-7.450)
[2021-05-20 12:26] LABS: ALLENS TEST POSITIVE
[2021-05-20 12:27] LABS: VENT MODE AC; VENT RATE 20
[2021-05-20] MEDS: HEPARIN SOD,PORK IN 0.45% NACL 25,000 UNITS/500 ML INFUS.BAG IVPB SCH (12:30)
[2021-05-20] MEDS: ALBUTEROL SO4 0.083% IH SOL 2.5 MG/3 ML VIAL.NEB. NEB SCH ×2 (15:07→20:15)
[2021-05-20] MEDS: ACETYLCYSTEINE 20% 200MG/ML 4 ML VIAL *FOR ORAL / INH USE ONLY NEB SCH ×2 (15:51→20:15)
[2021-05-20] MEDS ORDERED: ACETYLCYSTEINE 20% 200MG/ML 4 ML VIAL *FOR ORAL / INH USE ONLY NEB SCH (16:00)
[2021-05-20 16:46] LABS: BASO % 0.4 % (0-2.0); EOS % 0.6 % (0-4.5); LYMPH % 5.9 % (8-40); MCH 27.2 pg (25.7-33.7); MCHC 31.5 g/dl (32.0-35.9); MEAN CELL VOLUME 86.5 fl (80-96); MEAN PLT VOLUME 8.3 fl (7.5-11.1); MONO % 5.6 % (3.8-10.2); NEUT % 87.5 % (42.8-82.8); PLATELET COUNT 201 10^3/uL (134-434); RBC 2.54 M/mm3 (4.00-5.60); RDW 17.1 % (11.9-15.9)
[2021-05-20 16:53] LABS: INR 1.08 (0.83-1.09)
[2021-05-20 16:56] LABS: ACTIVATED PTT 35.3 SECONDS (25.2-36.5)
[2021-05-20 16:57] LABS: HEMOGLOBIN 6.9 GM/dL (11.7-16.9)
[2021-05-20 17:09] LABS: CALCIUM 8.1 mg/dL (8.5-10.1)
[2021-05-20 17:10] LABS: BLOOD UREA NITROGEN 50.3 mg/dL (7-18)
[2021-05-20 17:12] LABS: CREATININE 3.1 mg/dL (0.55-1.3); PHOSPHOROUS 7.4 mg/dL (2.5-4.9)
[2021-05-20] MEDS ORDERED: POTASSIUM CHLORIDE ORAL LIQUID 20 MEQ/15 ML PO ONE (17:38)
[2021-05-20] MEDS ORDERED: MEROPENEM 500 MG VIAL (RESTRICTED TO ID) IVPB ONE (18:19)
[2021-05-20] MEDS: MEROPENEM 500 MG in DEXTROSE 5%-WATER 100 ML IVPB SCH (18:20)
[2021-05-20] MEDS ORDERED: DEXTROSE 5%-WATER 100 ML IVPB ONE (18:20)
[2021-05-20] MEDS: CHLORHEXIDINE GLUCONATE 4% CLEANSER FOR DECOLONIZATION TP SCH (21:46)
[2021-05-20 22:07] LABS: BASO % 0.6 % (0-2.0); EOS % 0.9 % (0-4.5); HEMOGLOBIN 8.2 GM/dL (11.7-16.9); LYMPH % 7.3 % (8-40); MCH 28.1 pg (25.7-33.7); MCHC 32.7 g/dl (32.0-35.9); MEAN CELL VOLUME 85.9 fl (80-96); MEAN PLT VOLUME 7.9 fl (7.5-11.1); MONO % 5.2 % (3.8-10.2); PLATELET COUNT 184 10^3/uL (134-434); RBC 2.91 M/mm3 (4.00-5.60); RDW 16.4 % (11.9-15.9); WHITE BLOOD COUNT 15.2 K/mm3 (4.0-10.0)
[2021-05-20 22:12] LABS: INR 1.09 (0.83-1.09); PROTHROMBIN TIME (PATIENT) 13.2 SEC (9.7-13.0)
[2021-05-20 22:15] LABS: ACTIVATED PTT 35.4 SECONDS (25.2-36.5)
[2021-05-20] MEDS: OLANZapine 5 MG TABLET GT SCH (22:46)
[2021-05-20 23:13] LABS: BLOOD UREA NITROGEN 46.2 mg/dL (7-18); CALCIUM 8.1 mg/dL (8.5-10.1); MAGNESIUM 1.9 mg/dL (1.8-2.4)
[2021-05-20 23:16] LABS: CREATININE 3.3 mg/dL (0.55-1.3); PHOSPHOROUS 7.6 mg/dL (2.5-4.9)
[2021-05-20] MEDS: ACETAMINOPHEN 1000 MG/100 ML VIAL (NON FORMULARY) IVPB PRN (23:18)
[2021-05-21] MEDS ORDERED: NOREPINEPHRINE BITARTRATE 4,000 MCG in DEXTROSE 5%-WATER - 496 ML IV SCH (01:00)
[2021-05-21] MEDS ORDERED: NOREPINEPHRINE BITARTRATE 8,000 MCG in DEXTROSE 5%-WATER - 492 ML IV SCH (01:00)
[2021-05-21] MEDS: NYSTATIN 100,000 UNIT/GM TOPICAL CREAM 15 GM TUBE TP SCH ×5 (01:00→23:15)
[2021-05-21] MEDS: NAFCILLIN - 2 GM in DEXTROSE 5%-WATER - 100 ML IVPB SCH ×7 (03:02→22:57)
[2021-05-21] MEDS ORDERED: PT OWN MED DRAWER 7, Y5N ONE ×7 (05:05→20:01)
[2021-05-21] MEDS: VASOPRESSIN 40 UNITS in SODIUM CHLORIDE 98 ML IVPB SCH ×2 (05:06→06:48)
[2021-05-21] MEDS: PROPOFOL 1,000,000 MCG/100 ML VIAL IVPB SCH ×3 (06:50→22:10)
[2021-05-21 07:25] LABS: HEMATOCRIT 25.6 % (35.4-49); HEMOGLOBIN 8.2 GM/dL (11.7-16.9); MCH 27.8 pg (25.7-33.7); MEAN CELL VOLUME 86.8 fl (80-96); MEAN PLT VOLUME 8.3 fl (7.5-11.1); PLATELET COUNT 194 10^3/uL (134-434); RBC 2.95 M/mm3 (4.00-5.60); WHITE BLOOD COUNT 14.6 K/mm3 (4.0-10.0)
[2021-05-21 07:29] LABS: INR 1.08 (0.83-1.09)
[2021-05-21 07:32] LABS: ACTIVATED PTT 35.6 SECONDS (25.2-36.5)
[2021-05-21 07:35] LABS: CALCIUM 8.1 mg/dL (8.5-10.1)
[2021-05-21 07:39] LABS: CREATININE 3.3 mg/dL (0.55-1.3)
[2021-05-21] MEDS: ACETYLCYSTEINE 20% 200MG/ML 4 ML VIAL *FOR ORAL / INH USE ONLY NEB SCH ×4 (08:33→20:04)
[2021-05-21] MEDS: ALBUTEROL SO4 0.083% IH SOL 2.5 MG/3 ML VIAL.NEB. NEB SCH ×4 (08:34→20:04)
[2021-05-21] MEDS: BACITRACIN 15 GM TUBE TOPICAL OINTMENT TP SCH ×2 (09:27→22:47)
[2021-05-21] MEDS: AMINO ACIDS/PROTEIN HYDROLYS 30 ML LIQUID.PKT NGT SCH ×2 (09:27→14:46)
[2021-05-21] MEDS: FLUCONAZOLE 100 MG/NS 50 ML IVPB SCH (09:34)
[2021-05-21] MEDS: MULTIVIT-MINERALS ORAL LIQUID GT SCH (09:34)
[2021-05-21] MEDS: FERROUS SULFATE 220 MG/5 ML ELIXIR GT SCH (09:35)
[2021-05-21] MEDS: FOLIC ACID 1 MG TABLET (FP) GT SCH (09:35)
[2021-05-21] MEDS: HALOPERIDOL 5 MG TABLET GT SCH (09:36)
[2021-05-21] MEDS: MIDODRINE HCL 5 MG TABLET NGT SCH ×3 (09:38→18:47)
[2021-05-21] MEDS: COLLAGENASE CLOSTRIDIUM HIST. 30 GRAMS TUBE TP SCH (09:38)
[2021-05-21] MEDS: THIAMINE HCL 100 MG TABLET (FP) NGT SCH (09:38)
[2021-05-21] MEDS: SERTRALINE HCL 25 MG TABLET (FP) NR SCH (09:39)
[2021-05-21] MEDS ORDERED: HEPARIN NA (PORCINE) 5,000 UNITS/ML 1ML VIAL SQ SCH (10:00)
[2021-05-21] MEDS: LYTES/YERBA SANTA 60 ML SPRAY MM SCH (10:15)
[2021-05-21] MEDS: ACETAMINOPHEN 1000 MG/100 ML VIAL (NON FORMULARY) IVPB PRN ×2 (11:37→20:15)
[2021-05-21] MEDS ORDERED: SODIUM CHLORIDE 250 ML IV PRN (12:00)
[2021-05-21] MEDS ORDERED: EPOETIN ALFA-EPBX 10,000 UNIT/ML VIAL SQ ONE (12:00)
[2021-05-21] MEDS: HEPARIN SOD,PORK IN 0.45% NACL 25,000 UNITS/500 ML INFUS.BAG IVPB SCH ×2 (13:00→20:24)
[2021-05-21] MEDS: FENTANYL NS IVPB 500 MCG/100 ML BAG IVPB SCH ×2 (13:12→21:00)
[2021-05-21] MEDS: ALBUMIN HUMAN 25% 12.5 GM/50 ML VIAL IVPB SCH ×4 (13:32→14:49)
[2021-05-21] MEDS ORDERED: MEROPENEM 500 MG VIAL (RESTRICTED TO ID) IVPB ONE (18:04)
[2021-05-21] MEDS ORDERED: DEXTROSE 5%-WATER 100 ML IVPB ONE (18:04)
[2021-05-21] MEDS: MEROPENEM 500 MG in DEXTROSE 5%-WATER 100 ML IVPB SCH (18:47)
[2021-05-21 20:01] LABS: BASO % 0.1 % (0-2.0); EOS % 0.9 % (0-4.5); HEMATOCRIT 22.9 % (35.4-49); HEMOGLOBIN 7.4 GM/dL (11.7-16.9); LYMPH % 3.9 % (8-40); MCH 27.7 pg (25.7-33.7); MCHC 32.3 g/dl (32.0-35.9); MEAN CELL VOLUME 85.8 fl (80-96); MEAN PLT VOLUME 7.9 fl (7.5-11.1); NEUT % 91.1 % (42.8-82.8); PLATELET COUNT 159 10^3/uL (134-434); RBC 2.67 M/mm3 (4.00-5.60); RDW 17.3 % (11.9-15.9); WHITE BLOOD COUNT 13.4 K/mm3 (4.0-10.0)
[2021-05-21] MEDS: HEPARIN NA (PORCINE) 5,000 UNITS/ML 1ML VIAL IVPUSH PRN (20:25)
[2021-05-21 21:02] LABS: ANISOCYTOSIS 2+; OVALOCYTE 1+; PLATELET ESTIMATE DECREASED; TARGET CELLS 1+
[2021-05-21] MEDS: CHLORHEXIDINE GLUCONATE 4% CLEANSER FOR DECOLONIZATION TP SCH (22:48)
[2021-05-21] MEDS: OLANZapine 5 MG TABLET GT SCH (22:57)
[2021-05-21] MEDS: NOREPINEPHRINE NS PREMIX 8,000 MCG/500 ML BAG IVPB SCH (22:58)
[2021-05-21 23:29] LABS: HEMATOCRIT 23.2 % (35.4-49); HEMOGLOBIN 7.6 GM/dL (11.7-16.9); MCHC 32.7 g/dl (32.0-35.9); MEAN CELL VOLUME 85.7 fl (80-96); MEAN PLT VOLUME 7.8 fl (7.5-11.1); PLATELET COUNT 157 10^3/uL (134-434); WHITE BLOOD COUNT 12.1 K/mm3 (4.0-10.0)
[2021-05-22] MEDS ORDERED: PT OWN MED DRAWER 7, Y5N ONE ×4 (01:05→22:44)
[2021-05-22] MEDS: NAFCILLIN - 2 GM in DEXTROSE 5%-WATER - 100 ML IVPB SCH ×6 (02:35→22:48)
[2021-05-22] MEDS: FENTANYL NS IVPB 500 MCG/100 ML BAG IVPB SCH ×2 (02:47→13:30)
[2021-05-22] MEDS: HEPARIN NA (PORCINE) 5,000 UNITS/ML 1ML VIAL IVPUSH PRN (03:29)
[2021-05-22] MEDS: PROPOFOL 1,000,000 MCG/100 ML VIAL IVPB SCH ×2 (03:34→14:00)
[2021-05-22] MEDS: VASOPRESSIN 40 UNITS in SODIUM CHLORIDE 98 ML IVPB SCH (05:24)
[2021-05-22] MEDS: METOPROLOL TARTRATE 25 MG TABLET (FP) NGT SCH (06:26)
[2021-05-22] MEDS: NYSTATIN 100,000 UNIT/GM TOPICAL CREAM 15 GM TUBE TP SCH ×3 (06:26→18:49)
[2021-05-22] MEDS: ACETYLCYSTEINE 20% 200MG/ML 4 ML VIAL *FOR ORAL / INH USE ONLY NEB SCH ×4 (08:15→20:35)
[2021-05-22] MEDS: ALBUTEROL SO4 0.083% IH SOL 2.5 MG/3 ML VIAL.NEB. NEB SCH ×4 (08:16→20:35)
[2021-05-22] MEDS: AMINO ACIDS/PROTEIN HYDROLYS 30 ML LIQUID.PKT NGT SCH ×2 (08:19→18:00)
[2021-05-22 08:25] LABS: BASO % 0.5 % (0-2.0); EOS % 1.8 % (0-4.5); HEMATOCRIT 25.4 % (35.4-49); HEMOGLOBIN 8.4 GM/dL (11.7-16.9); LYMPH % 5.8 % (8-40); MCH 28.4 pg (25.7-33.7); MEAN CELL VOLUME 86.2 fl (80-96); MEAN PLT VOLUME 8.4 fl (7.5-11.1); MONO % 3.4 % (3.8-10.2); NEUT % 88.5 % (42.8-82.8); PLATELET COUNT 185 10^3/uL (134-434); RBC 2.94 M/mm3 (4.00-5.60); RDW 16.7 % (11.9-15.9); WHITE BLOOD COUNT 15.7 K/mm3 (4.0-10.0)
[2021-05-22 08:35] LABS: INR 1.2 (0.83-1.09); PROTHROMBIN TIME (PATIENT) 14.5 SEC (9.7-13.0)
[2021-05-22 08:53] LABS: ALBUMIN 1.3 g/dl (3.4-5.0); BLOOD UREA NITROGEN 31.8 mg/dL (7-18); CALCIUM 7.9 mg/dL (8.5-10.1); MAGNESIUM 1.8 mg/dL (1.8-2.4)
[2021-05-22 08:56] LABS: CREATININE 2.7 mg/dL (0.55-1.3); PHOSPHOROUS 6.3 mg/dL (2.5-4.9)
[2021-05-22 08:58] LABS: TOT PROT 5.5 g/dl (6.4-8.2)
[2021-05-22] MEDS: BACITRACIN 15 GM TUBE TOPICAL OINTMENT TP SCH ×2 (09:15→22:47)
[2021-05-22] MEDS: SERTRALINE HCL 25 MG TABLET (FP) NR SCH (09:16)
[2021-05-22] MEDS: THIAMINE HCL 100 MG TABLET (FP) NGT SCH (09:16)
[2021-05-22] MEDS: MIDODRINE HCL 5 MG TABLET NGT SCH ×3 (09:16→19:05)
[2021-05-22] MEDS: FOLIC ACID 1 MG TABLET (FP) GT SCH (09:19)
[2021-05-22] MEDS: MULTIVIT-MINERALS ORAL LIQUID GT SCH (09:19)
[2021-05-22] MEDS: FERROUS SULFATE 220 MG/5 ML ELIXIR GT SCH (09:20)
[2021-05-22] MEDS: COLLAGENASE CLOSTRIDIUM HIST. 30 GRAMS TUBE TP SCH (09:29)
[2021-05-22] MEDS: FAMOTIDINE 40 MG/5 ML ORAL SUSPENSION NGT SCH (09:29)
[2021-05-22] MEDS: FLUCONAZOLE 100 MG/NS 50 ML IVPB SCH (10:19)
[2021-05-22] MEDS: LYTES/YERBA SANTA 60 ML SPRAY MM SCH (11:00)
[2021-05-22] MEDS ORDERED: fentaNYL CITRATE 250 MCG/5 ML VIAL ONE (12:32)
[2021-05-22] MEDS ORDERED: SODIUM CHLORIDE 250 ML IV PRN (12:59)
[2021-05-22] MEDS ORDERED: EPOETIN ALFA-EPBX 10,000 UNIT/ML VIAL SQ ONE (13:00)
[2021-05-22] MEDS ORDERED: MEROPENEM 500 MG VIAL (RESTRICTED TO ID) IVPB ONE ×2 (14:23→18:59)
[2021-05-22] MEDS ORDERED: DEXTROSE 5%-WATER 100 ML IVPB ONE ×2 (14:24→18:59)
[2021-05-22] MEDS: CHLORHEXIDINE GLUCONATE 0.12% 15ML CUP MM SCH ×2 (14:59→22:48)
[2021-05-22] MEDS: HEPARIN SOD,PORK IN 0.45% NACL 25,000 UNITS/500 ML INFUS.BAG IVPB SCH (18:48)
[2021-05-22] MEDS: MEROPENEM 500 MG in DEXTROSE 5%-WATER 100 ML IVPB SCH (19:05)
[2021-05-22] MEDS: CHLORHEXIDINE GLUCONATE 4% CLEANSER FOR DECOLONIZATION TP SCH (22:47)
[2021-05-22] MEDS: NOREPINEPHRINE NS PREMIX 8,000 MCG/500 ML BAG IVPB SCH (22:48)
[2021-05-22] MEDS: ACETAMINOPHEN 1000 MG/100 ML VIAL (NON FORMULARY) IVPB PRN (22:49)
[2021-05-23] MEDS: FENTANYL NS IVPB 500 MCG/100 ML BAG IVPB SCH ×3 (01:11→14:44)
[2021-05-23] MEDS: PROPOFOL 1,000,000 MCG/100 ML VIAL IVPB SCH ×5 (01:11→18:16)
[2021-05-23] MEDS ORDERED: CALCIUM GLUCONATE 10% - 1,000 MG/10 ML VIAL IVPUSH ONE (01:33)
[2021-05-23] MEDS ORDERED: MAGNESIUM SULF 50% (8.12 MEQ/2 ML-1 GM VIAL) IVPB ONE (01:33)
[2021-05-23 02:31] LABS: CALCIUM 7.8 mg/dL (8.5-10.1); MAGNESIUM 2.2 mg/dL (1.8-2.4)
[2021-05-23] MEDS ORDERED: POTASSIUM CHLORIDE 20 MEQ PREMIX IVPB 100 ML IVPB ONE (02:33)
[2021-05-23 02:34] LABS: CREATININE 2.2 mg/dL (0.55-1.3); PHOSPHOROUS 4.4 mg/dL (2.5-4.9)
[2021-05-23] MEDS: NAFCILLIN - 2 GM in DEXTROSE 5%-WATER - 100 ML IVPB SCH ×6 (03:00→21:30)
[2021-05-23] MEDS ORDERED: PT OWN MED DRAWER 7, Y5N ONE ×7 (03:57→18:17)
[2021-05-23 07:21] LABS: BASO % 0.7 % (0-2.0); EOS % 1.6 % (0-4.5); HEMATOCRIT 26.9 % (35.4-49); HEMOGLOBIN 8.8 GM/dL (11.7-16.9); LYMPH % 6.6 % (8-40); MCH 28.3 pg (25.7-33.7); MCHC 32.7 g/dl (32.0-35.9); MEAN CELL VOLUME 86.4 fl (80-96); MEAN PLT VOLUME 8.5 fl (7.5-11.1); MONO % 2.6 % (3.8-10.2); NEUT % 88.5 % (42.8-82.8); PLATELET COUNT 163 10^3/uL (134-434); RBC 3.11 M/mm3 (4.00-5.60); RDW 17.6 % (11.9-15.9); WHITE BLOOD COUNT 18.2 K/mm3 (4.0-10.0)
[2021-05-23] MEDS: NYSTATIN 100,000 UNIT/GM TOPICAL CREAM 15 GM TUBE TP SCH ×4 (07:29→18:14)
[2021-05-23 07:42] LABS: ALBUMIN 1.3 g/dl (3.4-5.0); BLOOD UREA NITROGEN 24.7 mg/dL (7-18); CALCIUM 7.9 mg/dL (8.5-10.1)
[2021-05-23 07:43] LABS: MAGNESIUM 1.9 mg/dL (1.8-2.4)
[2021-05-23 07:45] LABS: CREATININE 2.3 mg/dL (0.55-1.3); PHOSPHOROUS 4.9 mg/dL (2.5-4.9)
[2021-05-23] MEDS: ACETYLCYSTEINE 20% 200MG/ML 4 ML VIAL *FOR ORAL / INH USE ONLY NEB SCH ×4 (07:45→20:49)
[2021-05-23] MEDS: ALBUTEROL SO4 0.083% IH SOL 2.5 MG/3 ML VIAL.NEB. NEB SCH ×4 (07:45→20:50)
[2021-05-23 07:46] LABS: BILIRUBIN,TOTAL 3.5 mg/dL (0.2-1); TOT PROT 5.8 g/dl (6.4-8.2)
[2021-05-23] MEDS: AMINO ACIDS/PROTEIN HYDROLYS 30 ML LIQUID.PKT NGT SCH ×2 (07:56→18:14)
[2021-05-23] MEDS: BACITRACIN 15 GM TUBE TOPICAL OINTMENT TP SCH ×2 (09:38→21:30)
[2021-05-23] MEDS: FERROUS SULFATE 220 MG/5 ML ELIXIR GT SCH (09:39)
[2021-05-23] MEDS: MULTIVIT-MINERALS ORAL LIQUID GT SCH (09:39)
[2021-05-23] MEDS: LYTES/YERBA SANTA 60 ML SPRAY MM SCH (09:40)
[2021-05-23] MEDS: HALOPERIDOL 5 MG TABLET GT SCH (09:40)
[2021-05-23] MEDS: CHLORHEXIDINE GLUCONATE 0.12% 15ML CUP MM SCH ×2 (09:41→21:31)
[2021-05-23] MEDS: COLLAGENASE CLOSTRIDIUM HIST. 30 GRAMS TUBE TP SCH (09:44)
[2021-05-23] MEDS: SERTRALINE HCL 25 MG TABLET (FP) NR SCH (09:44)
[2021-05-23] MEDS: THIAMINE HCL 100 MG TABLET (FP) NGT SCH (09:44)
[2021-05-23] MEDS: MIDODRINE HCL 5 MG TABLET NGT SCH ×3 (09:44→18:15)
[2021-05-23] MEDS: FOLIC ACID 1 MG TABLET (FP) GT SCH (09:46)
[2021-05-23] MEDS ORDERED: INSULIN REGULAR HUMAN 100 UNITS/ML *VIAL ONE (09:51)
[2021-05-23] MEDS: MAGNESIUM 1GM/D5W - 1 GM/100 ML IVPB IVPB ONE ×2 (10:32→11:42)
[2021-05-23] MEDS: FLUCONAZOLE 100 MG/NS 50 ML IVPB SCH (10:34)
[2021-05-23] MEDS: POTASSIUM CHLORIDE 20 MEQ PREMIX IVPB 100 ML IVPB SCH ×3 (12:28→14:49)
[2021-05-23] MEDS: HEPARIN SOD,PORK IN 0.45% NACL 25,000 UNITS/500 ML INFUS.BAG IVPB SCH ×2 (13:44→18:14)
[2021-05-23] MEDS: HEPARIN NA (PORCINE) 5,000 UNITS/ML 1ML VIAL IVPUSH PRN (13:47)
[2021-05-23] MEDS: VASOPRESSIN 40 UNITS in SODIUM CHLORIDE 98 ML IVPB SCH (20:50)
[2021-05-23] MEDS: CHLORHEXIDINE GLUCONATE 4% CLEANSER FOR DECOLONIZATION TP SCH (21:30)
[2021-05-23] MEDS: NOREPINEPHRINE NS PREMIX 8,000 MCG/500 ML BAG IVPB SCH (21:31)
[2021-05-24] MEDS: NAFCILLIN - 2 GM in DEXTROSE 5%-WATER - 100 ML IVPB SCH ×6 (01:31→21:40)
[2021-05-24 06:06] LABS: HEMATOCRIT 25.9 % (35.4-49); HEMOGLOBIN 8.6 GM/dL (11.7-16.9); MCH 28.3 pg (25.7-33.7); MCHC 33.1 g/dl (32.0-35.9); MEAN CELL VOLUME 85.4 fl (80-96); MEAN PLT VOLUME 8.4 fl (7.5-11.1); PLATELET COUNT 156 10^3/uL (134-434); RBC 3.03 M/mm3 (4.00-5.60); RDW 17.7 % (11.9-15.9); WHITE BLOOD COUNT 17.9 K/mm3 (4.0-10.0)
[2021-05-24 06:29] LABS: BLOOD UREA NITROGEN 34.5 mg/dL (7-18); CALCIUM 7.6 mg/dL (8.5-10.1); MAGNESIUM 2.1 mg/dL (1.8-2.4)
[2021-05-24 06:34] LABS: TOT PROT 5.2 g/dl (6.4-8.2)
[2021-05-24] MEDS: VASOPRESSIN 40 UNITS in SODIUM CHLORIDE 98 ML IVPB SCH (06:35)
[2021-05-24] MEDS: NYSTATIN 100,000 UNIT/GM TOPICAL CREAM 15 GM TUBE TP SCH ×4 (06:35→17:07)
[2021-05-24] MEDS: HEPARIN NA (PORCINE) 5,000 UNITS/ML 1ML VIAL IVPUSH PRN (06:50)
[2021-05-24] MEDS: ALBUTEROL SO4 0.083% IH SOL 2.5 MG/3 ML VIAL.NEB. NEB SCH ×4 (07:20→20:40)
[2021-05-24] MEDS: ACETYLCYSTEINE 20% 200MG/ML 4 ML VIAL *FOR ORAL / INH USE ONLY NEB SCH ×4 (07:20→20:40)
[2021-05-24] MEDS ORDERED: PT OWN MED DRAWER 7, Y5N ONE ×3 (07:39→17:03)
[2021-05-24] MEDS: AMINO ACIDS/PROTEIN HYDROLYS 30 ML LIQUID.PKT NGT SCH ×2 (07:42→16:52)
[2021-05-24] MEDS: PROPOFOL 1,000,000 MCG/100 ML VIAL IVPB SCH ×3 (08:59→13:52)
[2021-05-24] MEDS: MULTIVIT-MINERALS ORAL LIQUID GT SCH (09:04)
[2021-05-24] MEDS: SERTRALINE HCL 25 MG TABLET (FP) NR SCH (09:05)
[2021-05-24] MEDS: CHLORHEXIDINE GLUCONATE 0.12% 15ML CUP MM SCH ×2 (09:05→21:41)
[2021-05-24] MEDS: FERROUS SULFATE 220 MG/5 ML ELIXIR GT SCH (09:05)
[2021-05-24] MEDS: MIDODRINE HCL 5 MG TABLET NGT SCH ×3 (09:05→18:27)
[2021-05-24] MEDS: FAMOTIDINE 40 MG/5 ML ORAL SUSPENSION NGT SCH (09:06)
[2021-05-24] MEDS: FOLIC ACID 1 MG TABLET (FP) GT SCH (09:06)
[2021-05-24] MEDS: THIAMINE HCL 100 MG TABLET (FP) NGT SCH (09:06)
[2021-05-24] MEDS: BACITRACIN 15 GM TUBE TOPICAL OINTMENT TP SCH ×2 (09:07→21:40)
[2021-05-24] MEDS: LYTES/YERBA SANTA 60 ML SPRAY MM SCH (09:09)
[2021-05-24] MEDS: FLUCONAZOLE 100 MG/NS 50 ML IVPB SCH (09:09)
[2021-05-24] MEDS: COLLAGENASE CLOSTRIDIUM HIST. 30 GRAMS TUBE TP SCH (09:09)
[2021-05-24] MEDS: FENTANYL NS IVPB 500 MCG/100 ML BAG IVPB SCH ×4 (09:38→22:00)
[2021-05-24] MEDS: ACETAMINOPHEN 1000 MG/100 ML VIAL (NON FORMULARY) IVPB PRN (16:50)
[2021-05-24] MEDS: HEPARIN SOD,PORK IN 0.45% NACL 25,000 UNITS/500 ML INFUS.BAG IVPB SCH (17:00)
[2021-05-24] MEDS: NOREPINEPHRINE NS PREMIX 8,000 MCG/500 ML BAG IVPB SCH (17:09)
[2021-05-24] MEDS: CHLORHEXIDINE GLUCONATE 4% CLEANSER FOR DECOLONIZATION TP SCH (21:40)
[2021-05-25] MEDS: NAFCILLIN - 2 GM in DEXTROSE 5%-WATER - 100 ML IVPB SCH ×6 (01:08→21:23)
[2021-05-25] MEDS: NYSTATIN 100,000 UNIT/GM TOPICAL CREAM 15 GM TUBE TP SCH ×4 (01:08→17:37)
[2021-05-25] MEDS: VASOPRESSIN 40 UNITS in SODIUM CHLORIDE 98 ML IVPB SCH (05:01)
[2021-05-25] MEDS: NOREPINEPHRINE NS PREMIX 8,000 MCG/500 ML BAG IVPB SCH ×3 (05:02→21:23)
[2021-05-25] MEDS: PROPOFOL 1,000,000 MCG/100 ML VIAL IVPB SCH ×5 (05:03→21:24)
[2021-05-25] MEDS: FENTANYL NS IVPB 500 MCG/100 ML BAG IVPB SCH ×3 (05:04→11:45)
[2021-05-25 07:15] LABS: HEMATOCRIT 26.7 % (35.4-49); HEMOGLOBIN 8.7 GM/dL (11.7-16.9); MCH 28.2 pg (25.7-33.7); MCHC 32.6 g/dl (32.0-35.9); MEAN CELL VOLUME 86.5 fl (80-96); MEAN PLT VOLUME 8.3 fl (7.5-11.1); PLATELET COUNT 163 10^3/uL (134-434); RBC 3.09 M/mm3 (4.00-5.60); RDW 17.9 % (11.9-15.9); WHITE BLOOD COUNT 16.1 K/mm3 (4.0-10.0)
[2021-05-25] MEDS: ALBUTEROL SO4 0.083% IH SOL 2.5 MG/3 ML VIAL.NEB. NEB SCH ×2 (07:30→11:21)
[2021-05-25] MEDS: ACETYLCYSTEINE 20% 200MG/ML 4 ML VIAL *FOR ORAL / INH USE ONLY NEB SCH ×4 (07:30→20:30)
[2021-05-25 07:40] LABS: CHLORIDE 97 mmol/L (98-107); SODIUM 133 mmol/L (136-145)
[2021-05-25] MEDS: HEPARIN NA (PORCINE) 5,000 UNITS/ML 1ML VIAL IVPUSH PRN (07:40)
[2021-05-25] MEDS: AMINO ACIDS/PROTEIN HYDROLYS 30 ML LIQUID.PKT NGT SCH ×2 (07:41→17:37)
[2021-05-25 07:43] LABS: ANION GAP 15 MMOL/L (8-16); BLOOD UREA NITROGEN 41.4 mg/dL (7-18); CO2 22 mmol/L (21-32); GLUCOSE,RANDOM 78 mg/dL (74-106); MAGNESIUM 1.9 mg/dL (1.8-2.4)
[2021-05-25 07:46] LABS: CREATININE 3.3 mg/dL (0.55-1.3); PHOSPHOROUS 7.7 mg/dL (2.5-4.9); SGOT/AST 14 U/L (15-37)
[2021-05-25 07:48] LABS: ALK PHOS 412 U/L (45-117); BILIRUBIN,TOTAL 4.6 mg/dL (0.2-1); SGPT/ALT < 6 U/L (13-61); TOT PROT 5.2 g/dl (6.4-8.2)
[2021-05-25] MEDS ORDERED: PT OWN MED DRAWER 7, Y5N ONE ×5 (09:13→16:52)
[2021-05-25] MEDS: ACETAMINOPHEN 1000 MG/100 ML VIAL (NON FORMULARY) IVPB PRN (09:22)
[2021-05-25] MEDS: MIDODRINE HCL 5 MG TABLET NGT SCH ×3 (09:23→17:59)
[2021-05-25] MEDS: SERTRALINE HCL 25 MG TABLET (FP) NR SCH (09:24)
[2021-05-25] MEDS: THIAMINE HCL 100 MG TABLET (FP) NGT SCH (09:24)
[2021-05-25] MEDS: FOLIC ACID 1 MG TABLET (FP) GT SCH (09:24)
[2021-05-25] MEDS: MULTIVIT-MINERALS ORAL LIQUID GT SCH (09:24)
[2021-05-25] MEDS: FERROUS SULFATE 220 MG/5 ML ELIXIR GT SCH (09:25)
[2021-05-25] MEDS: CHLORHEXIDINE GLUCONATE 0.12% 15ML CUP MM SCH ×2 (09:25→21:23)
[2021-05-25] MEDS: BACITRACIN 15 GM TUBE TOPICAL OINTMENT TP SCH ×2 (09:25→21:23)
[2021-05-25] MEDS: COLLAGENASE CLOSTRIDIUM HIST. 30 GRAMS TUBE TP SCH (09:25)
[2021-05-25] MEDS ORDERED: SODIUM CHLORIDE 250 ML IV PRN (09:33)
[2021-05-25] MEDS: LYTES/YERBA SANTA 60 ML SPRAY MM SCH (09:38)
[2021-05-25] MEDS ORDERED: EPOETIN ALFA-EPBX 10,000 UNIT/ML VIAL SQ ONE (10:00)
[2021-05-25] MEDS: ALBUMIN HUMAN 25% 12.5 GM/50 ML VIAL IVPB SCH ×4 (10:22→14:01)
[2021-05-25] MEDS: FLUCONAZOLE 100 MG/NS 50 ML IVPB SCH (10:28)
[2021-05-25] MEDS: HEPARIN SOD,PORK IN 0.45% NACL 25,000 UNITS/500 ML INFUS.BAG IVPB SCH ×2 (11:00→17:00)
[2021-05-25] MEDS: METOPROLOL TARTRATE 25 MG TABLET (FP) NGT SCH (14:15)
[2021-05-25] MEDS ORDERED: ALBUTEROL SO4 0.083% IH SOL 2.5 MG/3 ML VIAL.NEB. NEB ONE (20:19)
[2021-05-25] MEDS ORDERED: ALBUTEROL SO4 HFA INHALER IH PRN (21:07)
[2021-05-25] MEDS: CHLORHEXIDINE GLUCONATE 4% CLEANSER FOR DECOLONIZATION TP SCH (21:23)
[2021-05-26] MEDS: NYSTATIN 100,000 UNIT/GM TOPICAL CREAM 15 GM TUBE TP SCH ×5 (00:17→23:25)
[2021-05-26] MEDS: NAFCILLIN - 2 GM in DEXTROSE 5%-WATER - 100 ML IVPB SCH ×6 (01:10→21:41)
[2021-05-26] MEDS: VASOPRESSIN 40 UNITS in SODIUM CHLORIDE 98 ML IVPB SCH ×2 (05:32→21:42)
[2021-05-26 07:14] LABS: BASO % 0.4 % (0-2.0); EOS % 3.7 % (0-4.5); HEMATOCRIT 27.7 % (35.4-49); HEMOGLOBIN 9.1 GM/dL (11.7-16.9); LYMPH % 11.2 % (8-40); MCH 27.8 pg (25.7-33.7); MCHC 32.6 g/dl (32.0-35.9); MEAN CELL VOLUME 85.2 fl (80-96); MEAN PLT VOLUME 8.1 fl (7.5-11.1); MONO % 3.4 % (3.8-10.2); NEUT % 81.3 % (42.8-82.8); PLATELET COUNT 162 10^3/uL (134-434); RBC 3.26 M/mm3 (4.00-5.60); WHITE BLOOD COUNT 16.4 K/mm3 (4.0-10.0)
[2021-05-26 07:36] LABS: CALCIUM 7.2 mg/dL (8.5-10.1)
[2021-05-26 07:39] LABS: CREATININE 2.6 mg/dL (0.55-1.3)
[2021-05-26 07:40] LABS: PHOSPHOROUS 6.4 mg/dL (2.5-4.9)
[2021-05-26] MEDS: ACETYLCYSTEINE 20% 200MG/ML 4 ML VIAL *FOR ORAL / INH USE ONLY NEB SCH ×4 (07:40→20:10)
[2021-05-26 07:41] LABS: BILIRUBIN,TOTAL 5.9 mg/dL (0.2-1); TOT PROT 5.7 g/dl (6.4-8.2)
[2021-05-26 07:44] LABS: ALBUMIN 1.3 g/dl (3.4-5.0)
[2021-05-26] MEDS ORDERED: POTASSIUM CHLORIDE ORAL LIQUID 20 MEQ/15 ML PO ONE (08:24)
[2021-05-26] MEDS ORDERED: PT OWN MED DRAWER 7, Y5N ONE ×6 (08:40→21:38)
[2021-05-26] MEDS: AMINO ACIDS/PROTEIN HYDROLYS 30 ML LIQUID.PKT NGT SCH ×2 (08:47→17:10)
[2021-05-26] MEDS: KCL 10 MEQ IVPB 10 MEQ/100 ML INFUS.BAG IVPB SCH ×3 (08:47→11:21)
[2021-05-26] MEDS: HALOPERIDOL 5 MG TABLET GT SCH (09:02)
[2021-05-26] MEDS: SERTRALINE HCL 25 MG TABLET (FP) NR SCH (09:02)
[2021-05-26] MEDS: FAMOTIDINE 40 MG/5 ML ORAL SUSPENSION NGT SCH (09:02)
[2021-05-26] MEDS: FERROUS SULFATE 220 MG/5 ML ELIXIR GT SCH (09:02)
[2021-05-26] MEDS: THIAMINE HCL 100 MG TABLET (FP) NGT SCH (09:03)
[2021-05-26] MEDS: MIDODRINE HCL 5 MG TABLET NGT SCH ×3 (09:03→17:10)
[2021-05-26] MEDS: LYTES/YERBA SANTA 60 ML SPRAY MM SCH (09:03)
[2021-05-26] MEDS: MULTIVIT-MINERALS ORAL LIQUID GT SCH (09:03)
[2021-05-26] MEDS: FOLIC ACID 1 MG TABLET (FP) GT SCH (09:03)
[2021-05-26] MEDS: BACITRACIN 15 GM TUBE TOPICAL OINTMENT TP SCH ×2 (09:03→21:41)
[2021-05-26] MEDS: CHLORHEXIDINE GLUCONATE 0.12% 15ML CUP MM SCH ×2 (09:04→21:41)
[2021-05-26] MEDS: COLLAGENASE CLOSTRIDIUM HIST. 30 GRAMS TUBE TP SCH (09:04)
[2021-05-26] MEDS: FLUCONAZOLE 100 MG/NS 50 ML IVPB SCH (09:49)
[2021-05-26] MEDS: FENTANYL NS IVPB 500 MCG/100 ML BAG IVPB SCH ×2 (11:00→19:15)
[2021-05-26] MEDS: PROPOFOL 1,000,000 MCG/100 ML VIAL IVPB SCH (13:35)
[2021-05-26] MEDS: ACETAMINOPHEN 1000 MG/100 ML VIAL (NON FORMULARY) IVPB PRN (13:36)
[2021-05-26] MEDS: HEPARIN SOD,PORK IN 0.45% NACL 25,000 UNITS/500 ML INFUS.BAG IVPB SCH (17:09)
[2021-05-26] MEDS: CHLORHEXIDINE GLUCONATE 4% CLEANSER FOR DECOLONIZATION TP SCH (21:41)
[2021-05-27] MEDS: NOREPINEPHRINE NS PREMIX 8,000 MCG/500 ML BAG IVPB SCH ×2 (02:01→14:19)
[2021-05-27] MEDS ORDERED: PT OWN MED DRAWER 7, Y5N ONE ×5 (02:32→17:54)
[2021-05-27] MEDS: NAFCILLIN - 2 GM in DEXTROSE 5%-WATER - 100 ML IVPB SCH ×6 (02:35→21:33)
[2021-05-27] MEDS: NYSTATIN 100,000 UNIT/GM TOPICAL CREAM 15 GM TUBE TP SCH ×3 (05:28→17:51)
[2021-05-27] MEDS: VASOPRESSIN 40 UNITS in SODIUM CHLORIDE 98 ML IVPB SCH (05:29)
[2021-05-27 06:38] LABS: BASO % 0.5 % (0-2.0); EOS % 4.8 % (0-4.5); HEMATOCRIT 27.9 % (35.4-49); LYMPH % 6.6 % (8-40); MCHC 32.3 g/dl (32.0-35.9); MEAN CELL VOLUME 86.7 fl (80-96); MEAN PLT VOLUME 8.4 fl (7.5-11.1); MONO % 3.9 % (3.8-10.2); NEUT % 84.2 % (42.8-82.8); PLATELET COUNT 210 10^3/uL (134-434); RBC 3.21 M/mm3 (4.00-5.60); RDW 18.3 % (11.9-15.9); WHITE BLOOD COUNT 17.2 K/mm3 (4.0-10.0)
[2021-05-27 06:54] LABS: CALCIUM 7.4 mg/dL (8.5-10.1)
[2021-05-27 06:55] LABS: ALBUMIN 1.2 g/dl (3.4-5.0); BLOOD UREA NITROGEN 35.8 mg/dL (7-18); MAGNESIUM 1.9 mg/dL (1.8-2.4)
[2021-05-27 06:58] LABS: CREATININE 3.1 mg/dL (0.55-1.3); PHOSPHOROUS 7.4 mg/dL (2.5-4.9)
[2021-05-27 06:59] LABS: BILIRUBIN,TOTAL 4.7 mg/dL (0.2-1); TOT PROT 5.7 g/dl (6.4-8.2)
[2021-05-27] MEDS: HEPARIN NA (PORCINE) 5,000 UNITS/ML 1ML VIAL IVPUSH PRN (07:38)
[2021-05-27] MEDS: ACETYLCYSTEINE 20% 200MG/ML 4 ML VIAL *FOR ORAL / INH USE ONLY NEB SCH ×6 (07:40→20:15)
[2021-05-27] MEDS: ALBUTEROL SO4 0.083% IH SOL 2.5 MG/3 ML VIAL.NEB. NEB PRN ×3 (07:40→16:35)
[2021-05-27] MEDS: AMINO ACIDS/PROTEIN HYDROLYS 30 ML LIQUID.PKT NGT SCH ×2 (09:16→16:35)
[2021-05-27] MEDS: MULTIVIT-MINERALS ORAL LIQUID GT SCH (09:17)
[2021-05-27] MEDS: MIDODRINE HCL 5 MG TABLET NGT SCH ×3 (09:18→17:44)
[2021-05-27] MEDS: CHLORHEXIDINE GLUCONATE 0.12% 15ML CUP MM SCH ×2 (09:19→21:33)
[2021-05-27] MEDS: THIAMINE HCL 100 MG TABLET (FP) NGT SCH (09:20)
[2021-05-27] MEDS: SERTRALINE HCL 25 MG TABLET (FP) NR SCH (09:20)
[2021-05-27] MEDS: FOLIC ACID 1 MG TABLET (FP) GT SCH (09:20)
[2021-05-27] MEDS: FERROUS SULFATE 220 MG/5 ML ELIXIR GT SCH (09:21)
[2021-05-27] MEDS: FENTANYL NS IVPB 500 MCG/100 ML BAG IVPB SCH ×2 (10:14→18:00)
[2021-05-27] MEDS: FLUCONAZOLE 100 MG/NS 50 ML IVPB SCH (10:17)
[2021-05-27] MEDS: COLLAGENASE CLOSTRIDIUM HIST. 30 GRAMS TUBE TP SCH (10:18)
[2021-05-27] MEDS: BACITRACIN 15 GM TUBE TOPICAL OINTMENT TP SCH ×2 (10:19→21:34)
[2021-05-27] MEDS: LYTES/YERBA SANTA 60 ML SPRAY MM SCH (10:36)
[2021-05-27] MEDS: PROPOFOL 1,000,000 MCG/100 ML VIAL IVPB SCH (12:16)
[2021-05-27] MEDS: HEPARIN SOD,PORK IN 0.45% NACL 25,000 UNITS/500 ML INFUS.BAG IVPB SCH ×2 (12:19→17:14)
[2021-05-27] MEDS: BANATROL PLUS POWDER PACKET GT SCH ×2 (14:29→21:33)
[2021-05-27] MEDS ORDERED: EPOETIN ALFA-EPBX 10,000 UNIT/ML VIAL IVPUSH ONE (15:15)
[2021-05-27] MEDS: VANCOMYCIN 250 MG/5 ML ORAL SOLUTION PEG SCH (17:42)
[2021-05-27] MEDS ORDERED: FENTANYL NS IVPB 500 MCG/100 ML BAG IVPB ONE (17:54)
[2021-05-27] MEDS: ACETAMINOPHEN 1000 MG/100 ML VIAL (NON FORMULARY) IVPB PRN (18:31)
[2021-05-27] MEDS: CHLORHEXIDINE GLUCONATE 4% CLEANSER FOR DECOLONIZATION TP SCH (21:33)
[2021-05-28] MEDS: VANCOMYCIN 250 MG/5 ML ORAL SOLUTION PEG SCH ×4 (00:28→17:07)
[2021-05-28] MEDS: NYSTATIN 100,000 UNIT/GM TOPICAL CREAM 15 GM TUBE TP SCH ×4 (00:29→17:05)
[2021-05-28] MEDS: NAFCILLIN - 2 GM in DEXTROSE 5%-WATER - 100 ML IVPB SCH ×4 (01:30→13:40)
[2021-05-28] MEDS: ACETAMINOPHEN 650 MG/20.3 ML ORAL SOLUTION (CUPS) GT PRN ×2 (02:05→13:53)
[2021-05-28] MEDS ORDERED: PT OWN MED DRAWER 7, Y5N ONE ×6 (02:26→18:52)
[2021-05-28] MEDS ORDERED: ACETAMINOPHEN 1000 MG/100 ML VIAL (NON FORMULARY) IVPB PRN (03:47)
[2021-05-28] MEDS: VASOPRESSIN 40 UNITS in SODIUM CHLORIDE 98 ML IVPB SCH (04:30)
[2021-05-28] MEDS: NOREPINEPHRINE NS PREMIX 8,000 MCG/500 ML BAG IVPB SCH (05:45)
[2021-05-28] MEDS: BANATROL PLUS POWDER PACKET GT SCH ×3 (06:18→22:52)
[2021-05-28 06:30] LABS: BASO % 0.2 % (0-2.0); EOS % 2.2 % (0-4.5); HEMATOCRIT 24.7 % (35.4-49); LYMPH % 1.8 % (8-40); MCHC 32.4 g/dl (32.0-35.9); MEAN CELL VOLUME 86.4 fl (80-96); MEAN PLT VOLUME 8.3 fl (7.5-11.1); MONO % 4.1 % (3.8-10.2); NEUT % 91.7 % (42.8-82.8); PLATELET COUNT 193 10^3/uL (134-434); RBC 2.86 M/mm3 (4.00-5.60); RDW 17.8 % (11.9-15.9); WHITE BLOOD COUNT 28.1 K/mm3 (4.0-10.0)
[2021-05-28 06:45] LABS: CHLORIDE 104 mmol/L (98-107); SODIUM 139 mmol/L (136-145)
[2021-05-28 06:48] LABS: CALCIUM 7.5 mg/dL (8.5-10.1)
[2021-05-28 06:49] LABS: ALBUMIN 1.2 g/dl (3.4-5.0); ANION GAP 11 MMOL/L (8-16); BLOOD UREA NITROGEN 26.7 mg/dL (7-18); CO2 24 mmol/L (21-32); GLUCOSE,RANDOM 87 mg/dL (74-106); MAGNESIUM 1.7 mg/dL (1.8-2.4)
[2021-05-28 06:52] LABS: CREATININE 2.5 mg/dL (0.55-1.3); PHOSPHOROUS 4.1 mg/dL (2.5-4.9); SGOT/AST 13 U/L (15-37); SGPT/ALT < 6 U/L (13-61)
[2021-05-28 06:53] LABS: BILIRUBIN,TOTAL 5.1 mg/dL (0.2-1)
[2021-05-28 06:54] LABS: TOT PROT 5.4 g/dl (6.4-8.2)
[2021-05-28 06:55] LABS: ALK PHOS 485 U/L (45-117)
[2021-05-28] MEDS: ALBUTEROL SO4 0.083% IH SOL 2.5 MG/3 ML VIAL.NEB. NEB PRN ×4 (07:30→20:22)
[2021-05-28] MEDS: ACETYLCYSTEINE 20% 200MG/ML 4 ML VIAL *FOR ORAL / INH USE ONLY NEB SCH ×4 (07:30→20:21)
[2021-05-28] MEDS ORDERED: POTASSIUM CHLORIDE ORAL LIQUID 20 MEQ/15 ML PO ONE (08:27)
[2021-05-28] MEDS: AMINO ACIDS/PROTEIN HYDROLYS 30 ML LIQUID.PKT NGT SCH ×2 (08:34→16:46)
[2021-05-28] MEDS: PROPOFOL 1,000,000 MCG/100 ML VIAL IVPB SCH ×2 (08:46→15:19)
[2021-05-28] MEDS: KCL 10 MEQ IVPB 10 MEQ/100 ML INFUS.BAG IVPB SCH ×2 (09:01→10:44)
[2021-05-28] MEDS: BACITRACIN 15 GM TUBE TOPICAL OINTMENT TP SCH ×2 (09:01→22:53)
[2021-05-28] MEDS: FERROUS SULFATE 220 MG/5 ML ELIXIR GT SCH (09:02)
[2021-05-28] MEDS: MULTIVIT-MINERALS ORAL LIQUID GT SCH (09:02)
[2021-05-28] MEDS: FOLIC ACID 1 MG TABLET (FP) GT SCH (09:02)
[2021-05-28] MEDS: HALOPERIDOL 5 MG TABLET GT SCH (09:03)
[2021-05-28] MEDS: CHLORHEXIDINE GLUCONATE 0.12% 15ML CUP MM SCH ×2 (09:03→22:52)
[2021-05-28] MEDS: LYTES/YERBA SANTA 60 ML SPRAY MM SCH (09:03)
[2021-05-28] MEDS: MIDODRINE HCL 5 MG TABLET NGT SCH ×3 (09:04→16:59)
[2021-05-28] MEDS: COLLAGENASE CLOSTRIDIUM HIST. 30 GRAMS TUBE TP SCH (09:04)
[2021-05-28] MEDS: THIAMINE HCL 100 MG TABLET (FP) NGT SCH (09:04)
[2021-05-28] MEDS: SERTRALINE HCL 25 MG TABLET (FP) NR SCH (09:05)
[2021-05-28] MEDS: FAMOTIDINE 40 MG/5 ML ORAL SUSPENSION NGT SCH (10:44)
[2021-05-28 10:46] LABS: ANISOCYTOSIS 1+; MACROCYTOSIS 0; PLATELET ESTIMATE NORMAL; TARGET CELLS 2+; TEAR DROP CELLS 1+
[2021-05-28] MEDS: FLUCONAZOLE 100 MG/NS 50 ML IVPB SCH (10:46)
[2021-05-28] MEDS ORDERED: VANCOMYCIN/WATER BAGS 1,250 MG/250 ML BAG IVPB ONE (13:35)
[2021-05-28] MEDS: LACTOBACILLUS ACIDOPHILUS 1 TABLET GT SCH (13:39)
[2021-05-28] MEDS ORDERED: FENTANYL NS IVPB 500 MCG/100 ML BAG IVPB ONE (14:03)
[2021-05-28] MEDS ORDERED: SODIUM CHLORIDE IVPB ONE (14:08)
[2021-05-28] MEDS ORDERED: AMIKACIN SO4 IVPB ONE (14:08)
[2021-05-28] MEDS ORDERED: CEFTAZIDIME PENTAHYDRATE 1 GM in DEXTROSE 5%-WATER - 50 ML IVPB SCH (14:15)
[2021-05-28] MEDS ORDERED: NOREPINEPHRINE BITARTRATE 4 MG/4 ML ML IV ONE (15:32)
[2021-05-28] MEDS: FENTANYL NS IVPB 500 MCG/100 ML BAG IVPB SCH ×2 (15:37→21:00)
[2021-05-28] MEDS: HEPARIN SOD,PORK IN 0.45% NACL 25,000 UNITS/500 ML INFUS.BAG IVPB SCH (22:20)
[2021-05-28] MEDS: CHLORHEXIDINE GLUCONATE 4% CLEANSER FOR DECOLONIZATION TP SCH (22:52)
[2021-05-29] MEDS: VANCOMYCIN 250 MG/5 ML ORAL SOLUTION PEG SCH ×4 (00:42→17:04)
[2021-05-29] MEDS: NYSTATIN 100,000 UNIT/GM TOPICAL CREAM 15 GM TUBE TP SCH ×4 (00:42→17:04)
[2021-05-29] MEDS ORDERED: NOREPINEPHRINE BITARTRATE IV SCH (01:35)
[2021-05-29] MEDS ORDERED: SODIUM CHLORIDE IV SCH (01:35)
[2021-05-29] MEDS ORDERED: fentaNYL CITRATE 250 MCG/5 ML VIAL ONE (03:35)
[2021-05-29] MEDS ORDERED: VASOPRESSIN 20 UNITS/ML VIAL IV ONE ×2 (06:02→19:14)
[2021-05-29] MEDS: VASOPRESSIN 40 UNITS in SODIUM CHLORIDE 98 ML IVPB SCH ×2 (06:16→11:37)
[2021-05-29] MEDS: BANATROL PLUS POWDER PACKET GT SCH ×3 (06:54→21:51)
[2021-05-29] MEDS ORDERED: SODIUM CHLORIDE 250 ML IV PRN (07:00)
[2021-05-29 07:02] LABS: HEMATOCRIT 25.4 % (35.4-49); RBC 2.84 M/mm3 (4.00-5.60)
[2021-05-29 07:03] LABS: BASO % 0.4 % (0-2.0); LYMPH % 5.2 % (8-40); MCH 28.2 pg (25.7-33.7); MCHC 31.6 g/dl (32.0-35.9); MEAN CELL VOLUME 89.4 fl (80-96); MEAN PLT VOLUME 8.1 fl (7.5-11.1); MONO % 2.3 % (3.8-10.2); NEUT % 91.1 % (42.8-82.8); PLATELET COUNT 175 10^3/uL (134-434); RDW 19.3 % (11.9-15.9)
[2021-05-29 07:06] LABS: WHITE BLOOD COUNT 37.7 K/mm3 (4.0-10.0)
[2021-05-29 07:12] LABS: INR 1.5 (0.83-1.09); PROTHROMBIN TIME (PATIENT) 17.9 SEC (9.7-13.0)
[2021-05-29 07:15] LABS: ACTIVATED PTT 97.3 SECONDS (25.2-36.5)
[2021-05-29 07:25] LABS: CALCIUM 7.4 mg/dL (8.5-10.1)
[2021-05-29 07:26] LABS: ALBUMIN 1.2 g/dl (3.4-5.0); BLOOD UREA NITROGEN 33.5 mg/dL (7-18); MAGNESIUM 1.8 mg/dL (1.8-2.4)
[2021-05-29 07:29] LABS: CREATININE 3.1 mg/dL (0.55-1.3); PHOSPHOROUS 6.1 mg/dL (2.5-4.9)
[2021-05-29 07:30] LABS: BILIRUBIN,TOTAL 4.4 mg/dL (0.2-1); TOT PROT 5.7 g/dl (6.4-8.2)
[2021-05-29] MEDS ORDERED: EPOETIN ALFA-EPBX 10,000 UNIT/ML VIAL SQ ONE (07:30)
[2021-05-29] MEDS: ALBUMIN HUMAN 25% 12.5 GM/50 ML VIAL IVPB SCH ×2 (08:25→10:21)
[2021-05-29] MEDS ORDERED: NOREPINEPHRINE BITARTRATE 16,000 MCG in SODIUM CHLORIDE 484 ML IV SCH (08:45)
[2021-05-29] MEDS ORDERED: NOREPINEPHRINE BITARTRATE 4 MG/4 ML ML IV ONE ×2 (09:05→09:07)
[2021-05-29 09:17] LABS: ANISOCYTOSIS 1+; MACROCYTOSIS 1+; PLATELET ESTIMATE NORMAL; TARGET CELLS 1+; TEAR DROP CELLS 1+
[2021-05-29] MEDS ORDERED: LACTOBACILLUS ACIDOPHILUS 1 TABLET PO SCH (10:00)
[2021-05-29] MEDS ORDERED: FLUDROCORTISONE ACETATE 0.1 MG TABLET (FP) PO SCH (10:15)
[2021-05-29] MEDS: ACETYLCYSTEINE 20% 200MG/ML 4 ML VIAL *FOR ORAL / INH USE ONLY NEB SCH ×4 (10:21→20:39)
[2021-05-29] MEDS ORDERED: PT OWN MED DRAWER 7, Y5N ONE ×2 (10:30→13:10)
[2021-05-29] MEDS: AMINO ACIDS/PROTEIN HYDROLYS 30 ML LIQUID.PKT NGT SCH ×2 (10:38→17:04)
[2021-05-29] MEDS: LACTOBACILLUS ACIDOPHILUS 1 TABLET GT SCH (10:39)
[2021-05-29] MEDS: CHLORHEXIDINE GLUCONATE 0.12% 15ML CUP MM SCH ×2 (10:39→21:51)
[2021-05-29] MEDS: MIDODRINE HCL 5 MG TABLET NGT SCH ×3 (10:39→17:04)
[2021-05-29] MEDS: HYDROCORTISONE SOD SUCCINATE 100 MG/2 ML VIAL IVPB SCH ×3 (10:40→21:51)
[2021-05-29] MEDS: MULTIVIT-MINERALS ORAL LIQUID GT SCH (10:40)
[2021-05-29] MEDS: FOLIC ACID 1 MG TABLET (FP) GT SCH (10:40)
[2021-05-29] MEDS: SERTRALINE HCL 25 MG TABLET (FP) NR SCH (10:40)
[2021-05-29] MEDS: FERROUS SULFATE 220 MG/5 ML ELIXIR GT SCH (10:41)
[2021-05-29] MEDS: COLLAGENASE CLOSTRIDIUM HIST. 30 GRAMS TUBE TP SCH (10:42)
[2021-05-29] MEDS: PROPOFOL 1,000,000 MCG/100 ML VIAL IVPB SCH (10:43)
[2021-05-29] MEDS: LYTES/YERBA SANTA 60 ML SPRAY MM SCH (10:45)
[2021-05-29] MEDS: FENTANYL NS IVPB 500 MCG/100 ML BAG IVPB SCH (10:46)
[2021-05-29] MEDS ORDERED: VANCOMYCIN 1 GRAM (PRE-DOCKED) 1,000 MG/250 ML BAG IVPB ONE (11:41)
[2021-05-29] MEDS ORDERED: CEFTAZIDIME/AVIBACTAM 0.94 GM in DEXTROSE 5%-WATER - 100 ML IVPB SCH (12:00)
[2021-05-29] MEDS: FLUCONAZOLE 100 MG/NS 50 ML IVPB SCH (12:37)
[2021-05-29] MEDS ORDERED: METOPROLOL TARTRATE 5 MG/5 ML VIAL IVPUSH ONE ×2 (13:43→14:57)
[2021-05-29] MEDS ORDERED: MORPHINE SULFATE/0.9% NACL/PF 100 MG/100 ML BAG IVPB SCH (14:45)
[2021-05-29] MEDS ORDERED: morphine SULFATE 4 MG/ML VIAL IVPUSH ONE (14:48)
[2021-05-29] MEDS ORDERED: DEXTROSE 5% IVPB ONE (15:30)
[2021-05-29] MEDS ORDERED: WATER IVPB ONE (15:30)
[2021-05-29] MEDS ORDERED: POLYMYXIN B SULFATE IVPB ONE (15:30)
[2021-05-29] MEDS: HEPARIN SOD,PORK IN 0.45% NACL 25,000 UNITS/500 ML INFUS.BAG IVPB SCH (17:06)
[2021-05-29] MEDS: ALBUTEROL SO4 0.083% IH SOL 2.5 MG/3 ML VIAL.NEB. NEB PRN (20:39)
[2021-05-29] MEDS: CHLORHEXIDINE GLUCONATE 4% CLEANSER FOR DECOLONIZATION TP SCH (21:51)
[2021-05-29 22:03] VITALS: BP 43/22; PULSE 76; TEMP 98.5
[2021-05-30] MEDS ORDERED: POLYMYXIN B SULFATE IVPB SCH (03:30)
[2021-05-30] MEDS ORDERED: DEXTROSE 5% IVPB SCH (03:30)
[2021-05-30] MEDS ORDERED: WATER IVPB SCH (03:30)
== END 2021-05-30 00:40 | disposition expired | DRG 721 ==
LOC: JER 13:04 → JERBED 15:58 → JICU 05-08 00:22 → J2W 05-14 18:17 → JICU 05-18 09:11
PROVIDERS: ATTEND Internal Medicine Pulmonary Disease
PROC: 3E0G76Z Introduction of Nutritional Substance into Upper GI, Via Natural or Artificial Opening (ICD-10-PCS; 2021-05-07)
PROC: 02HV33Z Insertion of Infusion Device into Superior Vena Cava, Percutaneous Approach (ICD-10-PCS; 2021-05-07)
PROC: B548ZZA Ultrasonography of Superior Vena Cava, Guidance (ICD-10-PCS; 2021-05-07)
PROC: 5A1D70Z Performance of Urinary Filtration, Intermittent, Less than 6 Hours Per Day (ICD-10-PCS; 2021-05-09)
PROC: 06HM33Z Insertion of Infusion Device into Right Femoral Vein, Percutaneous Approach (ICD-10-PCS; 2021-05-09)
PROC: B54BZZA Ultrasonography of Right Lower Extremity Veins, Guidance (ICD-10-PCS; 2021-05-09)
PROC: 06HN33Z Insertion of Infusion Device into Left Femoral Vein, Percutaneous Approach (ICD-10-PCS; 2021-05-12)
PROC: B54CZZA Ultrasonography of Left Lower Extremity Veins, Guidance (ICD-10-PCS; 2021-05-12)
PROC: 30233N1 Transfusion of Nonautologous Red Blood Cells into Peripheral Vein, Percutaneous Approach (ICD-10-PCS; 2021-05-13)
PROC: 0W9G3ZZ Drainage of Peritoneal Cavity, Percutaneous Approach (ICD-10-PCS; 2021-05-15)
PROC: 02HV33Z Insertion of Infusion Device into Superior Vena Cava, Percutaneous Approach (ICD-10-PCS; 2021-05-18)
PROC: B548ZZA Ultrasonography of Superior Vena Cava, Guidance (ICD-10-PCS; 2021-05-18)
PROC: 05H633Z Insertion of Infusion Device into Left Subclavian Vein, Percutaneous Approach (ICD-10-PCS; 2021-05-19)
PROC: B547ZZA Ultrasonography of Left Subclavian Vein, Guidance (ICD-10-PCS; 2021-05-19)
PROC: 5A1955Z Respiratory Ventilation, Greater than 96 Consecutive Hours (ICD-10-PCS; principal; 2021-05-20)
PROC: 0BH17EZ Insertion of Endotracheal Airway into Trachea, Via Natural or Artificial Opening (ICD-10-PCS; 2021-05-20)
PROC: 02HV33Z Insertion of Infusion Device into Superior Vena Cava, Percutaneous Approach (ICD-10-PCS; 2021-05-21)
PROC: B548ZZA Ultrasonography of Superior Vena Cava, Guidance (ICD-10-PCS; 2021-05-21)
DX: T80.211A Bloodstream infection due to central venous catheter, initial encounter (principal); Z86.74 Personal history of sudden cardiac arrest; E78.5 Hyperlipidemia, unspecified; I12.0 Hypertensive chronic kidney disease with stage 5 chronic kidney disease or end stage renal disease; N18.6 End stage renal disease; A41.01 Sepsis due to Methicillin susceptible Staphylococcus aureus; Z99.2 Dependence on renal dialysis; G93.1 Anoxic brain damage, not elsewhere classified; I25.2 Old myocardial infarction; J18.9 Pneumonia, unspecified organism; R74.01 Elevation of levels of liver transaminase levels; D64.9 Anemia, unspecified; J98.11 Atelectasis; R65.21 Severe sepsis with septic shock; N25.0 Renal osteodystrophy; Y83.8 Other surgical procedures as the cause of abnormal reaction of the patient, or of later complication, without mention of misadventure at the time of the procedure; R53.2 Functional quadriplegia; D69.6 Thrombocytopenia, unspecified; R64 Cachexia; E87.5 Hyperkalemia; J96.22 Acute and chronic respiratory failure with hypercapnia; J96.21 Acute and chronic respiratory failure with hypoxia; F32.9 Major depressive disorder, single episode, unspecified; I82.C11 Acute embolism and thrombosis of right internal jugular vein; N17.9 Acute kidney failure, unspecified; L02.31 Cutaneous abscess of buttock; B00.9 Herpesviral infection, unspecified; K94.23 Gastrostomy malfunction; D63.8 Anemia in other chronic diseases classified elsewhere; E87.6 Hypokalemia; D73.5 Infarction of spleen; I26.90 Septic pulmonary embolism without acute cor pulmonale; A04.72 Enterocolitis due to Clostridium difficile, not specified as recurrent; I33.0 Acute and subacute infective endocarditis; L89.154 Pressure ulcer of sacral region, stage 4
CPT/HCPCS: 31500; 36415; 36430; 36511; 36600; 49406; 70450-TC; 71045-TC-FY; 71250-TC; 71260-TC; 72132-TC; 74018-TC-FY; 74176-TC; 74177-TC; 76705-TC; 80048; 80053; 81003; 82248; 82272; 82803; 83605; 83735; 84100; 84484; 85025; 85027; 85045; 85384; 85610; 85730; 86480; 86704; 86706; 86707; 86708; 86709; 86803; 86850; 86900; 86901; 86922; 87040; 87070; 87075; 87077; 87086; 87102; 87116; 87186; 87205; 87206; 87210; 87324; 87340; 87449; 87493; 87804; 93005; 93010; 93306-TC; 93971; 94002; 94640; 99285-25; C9803; G0480; J0131; J1644; P9038; P9047; P9058; Q5106; Q9967; U0003; U0005